=== PATIENT | female | born 1960 | race Caucasian/White ===

== ENCOUNTER 2018-01-15 08:40 | Inpatient (IN) ==
[2018-01-15] MEDS ORDERED: ALBUTEROL 2.5 MG/3 ML NEB RESP TX PRN (12:10)
[2018-01-15] MEDS ORDERED: LACTULOSE 20 GM/30 ML UDCUP PO PRN (12:10)
[2018-01-15] MEDS ORDERED: ONDANSETRON 4 MG/2 ML VIAL IV PRN (12:10)
[2018-01-15] MEDS ORDERED: ACETAMINOPHEN 325 MG TABLET PO PRN (12:10)
[2018-01-15] MEDS ORDERED: GLUCAGON 1 MG VIAL IM PRN (12:13)
[2018-01-15] MEDS ORDERED: DEXTROSE 50% 25 GM/50 ML SYRINGE IV PRN (12:13)
[2018-01-15] MEDS ORDERED: FUROSEMIDE 40 MG/4 ML VIAL IV ONE (12:19)
[2018-01-15] MEDS: methylPREDNISolone SOD SUC 40 MG/1 ML VIAL IV SCH ×2 (12:53→21:58)
[2018-01-15 13:02] LABS: ABG Base Excess 1.6 MMOL/L (-2.5-2.5); ABG HCO3 25.6 MMOL/L (20-26); ABG Oxygen Saturation 88.4 % (95-100); ABG PH 7.438 (7.35-7.45); ABG PO2 54.6 MM HG (80-95); ABG TCO2 22.6 MMOL/L (23-27)
[2018-01-15] MEDS: ALBUTEROL/IPRATROPIUM 3 ML NEB RESP TX SCH ×3 (14:55→23:42)
[2018-01-15] MEDS: INSULIN LISPRO 100 UNIT/ML SUBCUT SCH ×2 (16:53→21:58)
[2018-01-15] MEDS: NAPROXEN 250 MG TABLET PO PRN (19:48)
[2018-01-15] MEDS: CEFEPIME 1,000 MG in SYRINGE 1 EACH IV SCH (21:57)
[2018-01-15] MEDS: CARVEDILOL 12.5 MG TABLET PO SCH (21:58)
[2018-01-16] MEDS: NAPROXEN 250 MG TABLET PO PRN (01:30)
[2018-01-16] MEDS: ALBUTEROL/IPRATROPIUM 3 ML NEB RESP TX SCH ×6 (03:53→23:45)
[2018-01-16 04:34] LABS: Basophils % 0.1 % (0.0-0.8); Hematocrit 38.2 VOL% (35.7-47.0); Hemoglobin 12.1 GM/DL (12.0-16.0); Immature Granulocytes % 0.7 %; Immature Granulocytes Absolute 0.12 #; Lymphocytes # 2.8 10*3/uL (1.4-4.0); Lymphocytes % 16.4 % (21.3-54.2); Mean Corpuscular HGB Conc 31.7 GM/DL (32-36); Mean Corpuscular Hemoglobin 29 PG (27-34); Mean Corpuscular Volume 92.3 FL (87-102); Mean Platelet Volume 10.8 FL (9.6-12.0); Monocytes # 0.7 10*3/uL (0.11-0.8); Monocytes % 3.9 % (1.7-12.7); Neutrophils # 13.7 10*3/uL (1.4-7.4); Neutrophils % 78.9 % (38.7-73.9); Platelet Count 338 T/CUMM (130-400); Red Blood Count 4.14 MC/CUMM (3.8-5.5); Red Cell Distribution Width 14.6 % (9.3-17.3); White Blood Count 17.3 T/CUMM (4-12)
[2018-01-16 04:57] LABS: Albumin 3.2 G/DL (3.4-5.0); Bilirubin,Total 0.6 MG/DL (0.2-1.0); Calcium 9.1 MG/DL (8.5-10.1); Osmolality,Calculated 283.8 MOS/KG (273-304); Potassium 3.8 MMOL/L (3.5-5.1); Total Protein 7.8 G/DL (6.4-8.3)
[2018-01-16] MEDS: methylPREDNISolone SOD SUC 40 MG/1 ML VIAL IV SCH ×2 (06:00→17:17)
[2018-01-16] MEDS: CARVEDILOL 12.5 MG TABLET PO SCH ×2 (08:39→21:27)
[2018-01-16] MEDS: ATORVASTATIN 40 MG TABLET PO SCH (08:39)
[2018-01-16] MEDS: INSULIN LISPRO 100 UNIT/ML SUBCUT SCH ×5 (08:39→21:26)
[2018-01-16] MEDS: ASPIRIN EC 325 MG TABLET PO SCH (08:39)
[2018-01-16] MEDS: ENOXAPARIN 40 MG/0.4 ML SYRINGE SUBCUT SCH (08:39)
[2018-01-16] MEDS: PANTOPRAZOLE 40 MG TABLET PO SCH (08:39)
[2018-01-16] MEDS: AZITHROMYCIN INJ 500 MG in SODIUM CHLORIDE 0.9% 250 ML IV SCH (08:40)
[2018-01-16] MEDS: CEFEPIME 1,000 MG in SYRINGE 1 EACH IV SCH ×2 (09:58→21:27)
[2018-01-16] MEDS ORDERED: methylPREDNISolone SOD SUC 40 MG/1 ML VIAL IV SCH (10:00)
[2018-01-16 14:50] LABS: Apearance,Urine CLEAR (Clear); Bilirubin,Urine Negative (Negative); Blood, Urine Negative (Negative); Glucose,Urine (UA) >=500 mg/dL (Negative); Ketones,Urine Negative (Negative); Nitrite,Urine Negative (Negative); Protein,Urine Negative; RBC,Urine <1 /HPF (0-4); Urine Color Straw (Yellow); Urine Specific Gravity 1.022 (1.001-1.035); Urine Urobilinogen < 2.0 EU/DL (0.2-1.0); WBC,Urine <1 /HPF (0-6)
[2018-01-16] MEDS: INSULIN GLARGINE 100 UNIT/ML SUBCUT SCH (21:26)
[2018-01-17] MEDS: ALBUTEROL/IPRATROPIUM 3 ML NEB RESP TX SCH ×6 (04:57→23:40)
[2018-01-17 05:49] LABS: Basophils % 0.1 % (0.0-0.8); Hematocrit 38.1 VOL% (35.7-47.0); Hemoglobin 11.9 GM/DL (12.0-16.0); Immature Granulocytes % 0.6 %; Immature Granulocytes Absolute 0.13 #; Lymphocytes # 3.7 10*3/uL (1.4-4.0); Lymphocytes % 16.9 % (21.3-54.2); Mean Corpuscular HGB Conc 31.2 GM/DL (32-36); Mean Corpuscular Hemoglobin 29 PG (27-34); Mean Corpuscular Volume 92.3 FL (87-102); Monocytes # 1.4 10*3/uL (0.11-0.8); Monocytes % 6.5 % (1.7-12.7); Neutrophils # 16.5 10*3/uL (1.4-7.4); Neutrophils % 75.9 % (38.7-73.9); Platelet Count 381 T/CUMM (130-400); Red Blood Count 4.13 MC/CUMM (3.8-5.5); Red Cell Distribution Width 14.6 % (9.3-17.3); White Blood Count 21.8 T/CUMM (4-12)
[2018-01-17] MEDS: methylPREDNISolone SOD SUC 40 MG/1 ML VIAL IV SCH ×2 (05:59→18:10)
[2018-01-17] MEDS: LEVOTHYROXINE 137 MCG TABLET PO SCH (05:59)
[2018-01-17 06:18] LABS: Calcium 9.4 MG/DL (8.5-10.1); Osmolality,Calculated 285.7 MOS/KG (273-304); Potassium 4.3 MMOL/L (3.5-5.1)
[2018-01-17 06:20] LABS: Calcium 9.2 MG/DL (8.5-10.1); Osmolality,Calculated 287.5 MOS/KG (273-304); Potassium 4.4 MMOL/L (3.5-5.1)
[2018-01-17 06:47] LABS: Lymphocytes 16 % (20-55); Segmented Neutrophils 83 % (50-85); Total Cells Counted 100
[2018-01-17 06:48] LABS: Platelet Estimate Normal
[2018-01-17] MEDS ORDERED: DIAZEPAM 5 MG TABLET PO ONE ×2 (08:34→15:16)
[2018-01-17] MEDS ORDERED: KETOROLAC 15 MG/1 ML VIAL IV ONE (08:57)
[2018-01-17] MEDS ORDERED: BUTALBITAL/ACETAMIN/CAFFEINE 50-325-40 MG TABLET PO PRN (08:57)
[2018-01-17] MEDS ORDERED: LIRAGLUTIDE 18 MG SUBCUT SCH (09:00)
[2018-01-17] MEDS: PANTOPRAZOLE 40 MG TABLET PO SCH (09:15)
[2018-01-17] MEDS: ASPIRIN EC 325 MG TABLET PO SCH (09:15)
[2018-01-17] MEDS: CARVEDILOL 12.5 MG TABLET PO SCH ×2 (09:15→22:00)
[2018-01-17] MEDS: INSULIN LISPRO 100 UNIT/ML SUBCUT SCH ×5 (09:16→22:00)
[2018-01-17] MEDS: ENOXAPARIN 40 MG/0.4 ML SYRINGE SUBCUT SCH (09:19)
[2018-01-17] MEDS: AZITHROMYCIN INJ 500 MG in SODIUM CHLORIDE 0.9% 250 ML IV SCH (13:04)
[2018-01-17] MEDS: MONTELUKAST 10 MG TABLET PO SCH (13:07)
[2018-01-17] MEDS: ATORVASTATIN 40 MG TABLET PO SCH (13:07)
[2018-01-17] MEDS: FLUTICASONE 50 MCG NASAL SPRAY 16 GM BOTTLE BOTH NARES SCH (13:07)
[2018-01-17] MEDS: CEFEPIME 1,000 MG in SYRINGE 1 EACH IV SCH ×2 (14:17→22:09)
[2018-01-17] MEDS ORDERED: MAGNESIUM SULF RIDER 2 GM in PREMIX 1 EACH IV PRN (15:16)
[2018-01-17] MEDS ORDERED: ASPIRIN 325 MG TABLET PO ONE (15:16)
[2018-01-17] MEDS ORDERED: diphenhydrAMINE CAP 25 MG CAPSULE PO ONE (15:16)
[2018-01-17] MEDS ORDERED: POTASSIUM CHLORIDE RIDER 10 MEQ in PREMIX 1 EACH IV PRN (15:16)
[2018-01-17] MEDS: INSULIN GLARGINE 100 UNIT/ML SUBCUT SCH (22:00)
[2018-01-18] MEDS: ALBUTEROL/IPRATROPIUM 3 ML NEB RESP TX SCH ×6 (03:32→23:44)
[2018-01-18] MEDS: LEVOTHYROXINE 137 MCG TABLET PO SCH (05:56)
[2018-01-18] MEDS: methylPREDNISolone SOD SUC 40 MG/1 ML VIAL IV SCH ×2 (05:56→17:17)
[2018-01-18 06:38] LABS: Basophils % 0.1 % (0.0-0.8); Eosinophils % 0.1 % (0.00-10.9); Hematocrit 38.8 VOL% (35.7-47.0); Hemoglobin 12.1 GM/DL (12.0-16.0); Immature Granulocytes % 0.6 %; Immature Granulocytes Absolute 0.11 #; Lymphocytes % 26.6 % (21.3-54.2); Mean Corpuscular HGB Conc 31.2 GM/DL (32-36); Mean Corpuscular Hemoglobin 29 PG (27-34); Mean Corpuscular Volume 94.2 FL (87-102); Mean Platelet Volume 10.8 FL (9.6-12.0); Monocytes # 1.5 10*3/uL (0.11-0.8); Monocytes % 8.3 % (1.7-12.7); Neutrophils % 64.3 % (38.7-73.9); Platelet Count 373 T/CUMM (130-400); Red Blood Count 4.12 MC/CUMM (3.8-5.5); Red Cell Distribution Width 14.4 % (9.3-17.3); White Blood Count 18.6 T/CUMM (4-12)
[2018-01-18 07:15] LABS: Calcium 9.1 MG/DL (8.5-10.1); Osmolality,Calculated 287.4 MOS/KG (273-304)
[2018-01-18] MEDS: INSULIN LISPRO 100 UNIT/ML SUBCUT SCH ×5 (08:45→21:36)
[2018-01-18] MEDS: MONTELUKAST 10 MG TABLET PO SCH (10:25)
[2018-01-18] MEDS: PANTOPRAZOLE 40 MG TABLET PO SCH (10:25)
[2018-01-18] MEDS: ENOXAPARIN 40 MG/0.4 ML SYRINGE SUBCUT SCH (10:25)
[2018-01-18] MEDS: AZITHROMYCIN INJ 500 MG in SODIUM CHLORIDE 0.9% 250 ML IV SCH (10:25)
[2018-01-18] MEDS: ASPIRIN EC 325 MG TABLET PO SCH (10:25)
[2018-01-18] MEDS: CARVEDILOL 12.5 MG TABLET PO SCH ×2 (10:25→21:28)
[2018-01-18] MEDS: ATORVASTATIN 40 MG TABLET PO SCH (10:25)
[2018-01-18] MEDS: FLUTICASONE 50 MCG NASAL SPRAY 16 GM BOTTLE BOTH NARES SCH (10:26)
[2018-01-18] MEDS: CEFEPIME 1,000 MG in SYRINGE 1 EACH IV SCH ×2 (10:37→23:03)
[2018-01-18] MEDS: INSULIN GLARGINE 100 UNIT/ML SUBCUT SCH (21:28)
[2018-01-19] MEDS: ALBUTEROL/IPRATROPIUM 3 ML NEB RESP TX SCH ×6 (03:45→23:43)
[2018-01-19 05:08] LABS: Basophils % 0.2 % (0.0-0.8); Eosinophils # 0.1 10*3/uL (0.0-0.87); Eosinophils % 0.4 % (0.00-10.9); Hematocrit 36.9 VOL% (35.7-47.0); Hemoglobin 11.4 GM/DL (12.0-16.0); Immature Granulocytes % 0.5 %; Lymphocytes # 6.5 10*3/uL (1.4-4.0); Lymphocytes % 34.9 % (21.3-54.2); Mean Corpuscular HGB Conc 30.9 GM/DL (32-36); Mean Corpuscular Hemoglobin 29 PG (27-34); Mean Corpuscular Volume 93.7 FL (87-102); Mean Platelet Volume 11.4 FL (9.6-12.0); Monocytes # 1.9 10*3/uL (0.11-0.8); Monocytes % 10.4 % (1.7-12.7); Neutrophils # 9.9 10*3/uL (1.4-7.4); Neutrophils % 53.6 % (38.7-73.9); Platelet Count 366 T/CUMM (130-400); Red Blood Count 3.94 MC/CUMM (3.8-5.5); Red Cell Distribution Width 14.1 % (9.3-17.3); White Blood Count 18.6 T/CUMM (4-12)
[2018-01-19 06:00] LABS: Calcium 8.6 MG/DL (8.5-10.1); Osmolality,Calculated 287.1 MOS/KG (273-304); Potassium 3.7 MMOL/L (3.5-5.1)
[2018-01-19] MEDS: LEVOTHYROXINE 137 MCG TABLET PO SCH (06:03)
[2018-01-19] MEDS: methylPREDNISolone SOD SUC 40 MG/1 ML VIAL IV SCH ×2 (06:03→17:18)
[2018-01-19] MEDS ORDERED: DEXTROSE 50% 25 GM/50 ML VIAL IV PRN (08:54)
[2018-01-19] MEDS ORDERED: GLUCAGON 1 MG VIAL IM PRN (08:54)
[2018-01-19] MEDS: INSULIN LISPRO 100 UNIT/ML SUBCUT SCH ×6 (08:57→21:44)
[2018-01-19] MEDS: MONTELUKAST 10 MG TABLET PO SCH (08:58)
[2018-01-19] MEDS: PANTOPRAZOLE 40 MG TABLET PO SCH (08:58)
[2018-01-19] MEDS: ATORVASTATIN 40 MG TABLET PO SCH (08:58)
[2018-01-19] MEDS: ASPIRIN EC 325 MG TABLET PO SCH (08:58)
[2018-01-19] MEDS: ENOXAPARIN 40 MG/0.4 ML SYRINGE SUBCUT SCH (08:58)
[2018-01-19] MEDS: CARVEDILOL 12.5 MG TABLET PO SCH (08:58)
[2018-01-19] MEDS: FLUTICASONE 50 MCG NASAL SPRAY 16 GM BOTTLE BOTH NARES SCH (08:59)
[2018-01-19] MEDS: CARVEDILOL 25 MG TABLET PO SCH (21:43)
[2018-01-19] MEDS: LOSARTAN 50 MG TABLET PO SCH (21:43)
[2018-01-19] MEDS: INSULIN GLARGINE 100 UNIT/ML SUBCUT SCH (21:43)
[2018-01-20] MEDS: ALBUTEROL/IPRATROPIUM 3 ML NEB RESP TX SCH ×5 (04:06→21:18)
[2018-01-20 05:00] LABS: Basophils % 0.2 % (0.0-0.8); Eosinophils # 0.1 10*3/uL (0.0-0.87); Eosinophils % 0.6 % (0.00-10.9); Hematocrit 39.4 VOL% (35.7-47.0); Hemoglobin 12.5 GM/DL (12.0-16.0); Immature Granulocytes % 0.5 %; Lymphocytes # 6.8 10*3/uL (1.4-4.0); Lymphocytes % 33.1 % (21.3-54.2); Mean Corpuscular HGB Conc 31.7 GM/DL (32-36); Mean Corpuscular Hemoglobin 29 PG (27-34); Mean Corpuscular Volume 91.2 FL (87-102); Mean Platelet Volume 11.3 FL (9.6-12.0); Monocytes # 2.2 10*3/uL (0.11-0.8); Monocytes % 10.6 % (1.7-12.7); Neutrophils # 11.3 10*3/uL (1.4-7.4); Platelet Count 410 T/CUMM (130-400); Red Blood Count 4.32 MC/CUMM (3.8-5.5); Red Cell Distribution Width 14.1 % (9.3-17.3); White Blood Count 20.6 T/CUMM (4-12)
[2018-01-20 05:13] LABS: Calcium 9.1 MG/DL (8.5-10.1); Osmolality,Calculated 285.3 MOS/KG (273-304); Potassium 3.9 MMOL/L (3.5-5.1)
[2018-01-20 05:28] LABS: Hypochromasia 1+; Platelet Estimate Adequate
[2018-01-20] MEDS: methylPREDNISolone SOD SUC 40 MG/1 ML VIAL IV SCH ×2 (05:53→17:11)
[2018-01-20] MEDS: LEVOTHYROXINE 137 MCG TABLET PO SCH (05:54)
[2018-01-20] MEDS ORDERED: diphenhydrAMINE CAP 25 MG CAPSULE PO ONE (07:00)
[2018-01-20] MEDS ORDERED: DIAZEPAM 5 MG TABLET PO ONE (07:00)
[2018-01-20] MEDS ORDERED: ASPIRIN 325 MG TABLET PO ONE (07:00)
[2018-01-20] MEDS: PANTOPRAZOLE 40 MG TABLET PO SCH (07:59)
[2018-01-20] MEDS: FLUTICASONE 50 MCG NASAL SPRAY 16 GM BOTTLE BOTH NARES SCH (07:59)
[2018-01-20] MEDS: CARVEDILOL 25 MG TABLET PO SCH ×2 (07:59→21:28)
[2018-01-20] MEDS: LOSARTAN 50 MG TABLET PO SCH ×2 (07:59→21:28)
[2018-01-20] MEDS: amLODIPine 5 MG TABLET PO SCH (07:59)
[2018-01-20] MEDS ORDERED: LIDOCAINE 1% 20 ML VIAL ONE (09:14)
[2018-01-20] MEDS ORDERED: fentaNYL 100 MCG/2 ML VIAL ONE (09:14)
[2018-01-20] MEDS ORDERED: MIDAZOLAM 2 MG/2 ML VIAL ONE (09:14)
[2018-01-20] MEDS: INSULIN LISPRO 100 UNIT/ML SUBCUT SCH ×5 (10:04→21:29)
[2018-01-20] MEDS: ASPIRIN EC 325 MG TABLET PO SCH (10:07)
[2018-01-20] MEDS: SODIUM CHLORIDE 0.9% 1,000 ML IV SCH ×2 (10:50→19:00)
[2018-01-20] MEDS: ATORVASTATIN 40 MG TABLET PO SCH (12:48)
[2018-01-20] MEDS: ENOXAPARIN 40 MG/0.4 ML SYRINGE SUBCUT SCH (12:48)
[2018-01-20] MEDS: MONTELUKAST 10 MG TABLET PO SCH (12:48)
[2018-01-20] MEDS: INSULIN GLARGINE 100 UNIT/ML SUBCUT SCH (21:29)
[2018-01-21] MEDS: ALBUTEROL/IPRATROPIUM 3 ML NEB RESP TX SCH ×7 (01:12→23:19)
[2018-01-21] MEDS: SODIUM CHLORIDE 0.9% 1,000 ML IV SCH ×2 (03:25→11:13)
[2018-01-21 03:26] LABS: Basophils % 0.2 % (0.0-0.8); Eosinophils # 0.1 10*3/uL (0.0-0.87); Eosinophils % 0.5 % (0.00-10.9); Hematocrit 38.5 VOL% (35.7-47.0); Hemoglobin 12.1 GM/DL (12.0-16.0); Immature Granulocytes % 0.5 %; Immature Granulocytes Absolute 0.09 #; Lymphocytes % 27.2 % (21.3-54.2); Mean Corpuscular HGB Conc 31.4 GM/DL (32-36); Mean Corpuscular Hemoglobin 29 PG (27-34); Mean Corpuscular Volume 91.9 FL (87-102); Mean Platelet Volume 10.7 FL (9.6-12.0); Monocytes # 1.6 10*3/uL (0.11-0.8); Monocytes % 8.9 % (1.7-12.7); Neutrophils # 11.5 10*3/uL (1.4-7.4); Neutrophils % 62.7 % (38.7-73.9); Platelet Count 375 T/CUMM (130-400); Red Blood Count 4.19 MC/CUMM (3.8-5.5); Red Cell Distribution Width 14.2 % (9.3-17.3); White Blood Count 18.3 T/CUMM (4-12)
[2018-01-21 03:52] LABS: Calcium 8.7 MG/DL (8.5-10.1); Osmolality,Calculated 289.4 MOS/KG (273-304); Potassium 4.4 MMOL/L (3.5-5.1)
[2018-01-21] MEDS: methylPREDNISolone SOD SUC 40 MG/1 ML VIAL IV SCH (05:00)
[2018-01-21] MEDS: LEVOTHYROXINE 137 MCG TABLET PO SCH (06:09)
[2018-01-21] MEDS: INSULIN LISPRO 100 UNIT/ML SUBCUT SCH ×5 (08:24→21:28)
[2018-01-21] MEDS: amLODIPine 5 MG TABLET PO SCH (08:25)
[2018-01-21] MEDS: ASPIRIN EC 325 MG TABLET PO SCH (08:25)
[2018-01-21] MEDS: PANTOPRAZOLE 40 MG TABLET PO SCH (08:25)
[2018-01-21] MEDS: ENOXAPARIN 40 MG/0.4 ML SYRINGE SUBCUT SCH (08:25)
[2018-01-21] MEDS: CARVEDILOL 25 MG TABLET PO SCH ×2 (08:25→21:27)
[2018-01-21] MEDS: ATORVASTATIN 40 MG TABLET PO SCH (08:26)
[2018-01-21] MEDS: LOSARTAN 50 MG TABLET PO SCH ×2 (08:26→21:27)
[2018-01-21] MEDS: MONTELUKAST 10 MG TABLET PO SCH (08:26)
[2018-01-21] MEDS: FLUTICASONE 50 MCG NASAL SPRAY 16 GM BOTTLE BOTH NARES SCH (08:26)
[2018-01-21] MEDS: INSULIN GLARGINE 100 UNIT/ML SUBCUT SCH (21:27)
[2018-01-22] MEDS: ALBUTEROL/IPRATROPIUM 3 ML NEB RESP TX SCH ×6 (03:12→22:59)
[2018-01-22 03:41] LABS: Basophils # 0.1 10*3/uL (0.0-0.2); Basophils % 0.2 % (0.0-0.8); Eosinophils # 0.7 10*3/uL (0.0-0.87); Eosinophils % 3.2 % (0.00-10.9); Hematocrit 37.7 VOL% (35.7-47.0); Hemoglobin 11.8 GM/DL (12.0-16.0); Immature Granulocytes % 0.5 %; Immature Granulocytes Absolute 0.12 #; Lymphocytes # 8.9 10*3/uL (1.4-4.0); Lymphocytes % 39.8 % (21.3-54.2); Mean Corpuscular HGB Conc 31.3 GM/DL (32-36); Mean Corpuscular Hemoglobin 29 PG (27-34); Mean Corpuscular Volume 92.2 FL (87-102); Mean Platelet Volume 11.3 FL (9.6-12.0); Monocytes # 2.1 10*3/uL (0.11-0.8); Monocytes % 9.3 % (1.7-12.7); Neutrophils # 10.6 10*3/uL (1.4-7.4); Platelet Count 370 T/CUMM (130-400); Red Blood Count 4.09 MC/CUMM (3.8-5.5); Red Cell Distribution Width 14.3 % (9.3-17.3); White Blood Count 22.5 T/CUMM (4-12)
[2018-01-22 04:08] LABS: Calcium 8.6 MG/DL (8.5-10.1); Potassium 3.4 MMOL/L (3.5-5.1)
[2018-01-22 05:24] LABS: Eosinophils 2 % (0-10); Total Cells Counted 100
[2018-01-22 05:25] LABS: Band Neutrophils 2 % (0-10); Lymphocytes 39 % (20-55); Platelet Estimate Normal; Segmented Neutrophils 48 % (50-85)
[2018-01-22 05:26] LABS: Ovalocytes 1+
[2018-01-22] MEDS ORDERED: DEXTROSE 50% 25 GM/50 ML SYRINGE IV PRN (05:44)
[2018-01-22] MEDS ORDERED: GLUCAGON 1 MG VIAL IM PRN (05:44)
[2018-01-22] MEDS ORDERED: CEFUROXIME INJ 1,500 MG in SODIUM CHLORIDE 0.9% 100 ML IV ONE (06:00)
[2018-01-22 06:12] LABS: ABG Base Excess 3.4 MMOL/L (-2.5-2.5); ABG HCO3 27.7 MMOL/L (20-26); ABG PCO2 40.9 MM HG (35-48); ABG PH 7.448 (7.35-7.45); ABG PO2 69.8 MM HG (80-95); ABG TCO2 28.9 MMOL/L (23-27)
[2018-01-22] MEDS: LEVOTHYROXINE 137 MCG TABLET PO SCH (06:35)
[2018-01-22] MEDS: INSULIN LISPRO 100 UNIT/ML SUBCUT SCH ×5 (10:37→21:25)
[2018-01-22] MEDS: POTASSIUM CHLORIDE 20 MEQ TABLET PO PRN ×3 (10:38→14:49)
[2018-01-22] MEDS: ATORVASTATIN 40 MG TABLET PO SCH (10:38)
[2018-01-22] MEDS: CARVEDILOL 25 MG TABLET PO SCH ×2 (10:38→21:24)
[2018-01-22] MEDS: ASPIRIN EC 325 MG TABLET PO SCH (10:38)
[2018-01-22] MEDS: PANTOPRAZOLE 40 MG TABLET PO SCH (10:38)
[2018-01-22] MEDS: amLODIPine 5 MG TABLET PO SCH (10:38)
[2018-01-22] MEDS: predniSONE 20 MG TABLET PO SCH (10:38)
[2018-01-22] MEDS: MONTELUKAST 10 MG TABLET PO SCH (10:39)
[2018-01-22] MEDS: LOSARTAN 50 MG TABLET PO SCH ×2 (10:39→21:24)
[2018-01-22] MEDS: CHLORHEXIDINE 4% SOLN 118 ML BOTTLE TOP SCH ×3 (10:40→21:25)
[2018-01-22] MEDS: CHLORHEXIDINE 0.12% ORAL RINSE 60 ML BOTTLE SWISH/SPIT SCH ×2 (10:40→21:24)
[2018-01-22] MEDS: FLUTICASONE 50 MCG NASAL SPRAY 16 GM BOTTLE BOTH NARES SCH (10:41)
[2018-01-22] MEDS: INSULIN GLARGINE 100 UNIT/ML SUBCUT SCH (21:24)
[2018-01-23] MEDS: ALBUTEROL/IPRATROPIUM 3 ML NEB RESP TX SCH ×4 (03:30→16:20)
[2018-01-23] MEDS ORDERED: CEFUROXIME INJ 1,500 MG in SODIUM CHLORIDE 0.9% 100 ML IV ONE (04:00)
[2018-01-23] MEDS ORDERED: VANCOMYCIN 1,000 MG VIAL ONE (04:40)
[2018-01-23] MEDS ORDERED: PAPAVERINE 60 MG/2 ML VIAL ONE (04:40)
[2018-01-23] MEDS: LEVOTHYROXINE 137 MCG TABLET PO SCH (05:30)
[2018-01-23] MEDS ORDERED: HEPARIN/NACL 0.9% 2 UNITS/ML 500 ML IV ONE (05:40)
[2018-01-23] MEDS ORDERED: PHENYLEPHRINE DRIP 20 MG/250 ML PREMIX IV ONE ×2 (05:40→16:09)
[2018-01-23] MEDS ORDERED: CALCIUM CHLORIDE 1,000 MG/10 ML VIAL IV ONE (05:40)
[2018-01-23] MEDS ORDERED: ePHEDrine 50 MG/ML AMP ONE (05:41)
[2018-01-23] MEDS ORDERED: VECURONIUM 10 MG VIAL IV ONE ×2 (05:41→15:59)
[2018-01-23] MEDS ORDERED: MIDAZOLAM 10 MG/2 ML VIAL ONE ×2 (05:41→15:59)
[2018-01-23] MEDS ORDERED: SUFentanil 250 MCG/5 ML AMP ONE (05:41)
[2018-01-23] MEDS ORDERED: SODIUM CHLORIDE 0.9% 250 ML IV ONE (05:42)
[2018-01-23] MEDS ORDERED: SODIUM CHLORIDE 0.9% 1,000 ML IV ONE (05:42)
[2018-01-23] MEDS ORDERED: ETOMIDATE 40 MG/20 ML VIAL IV ONE (05:42)
[2018-01-23] MEDS ORDERED: LACTATED RINGERS 1,000 ML IV ONE (05:42)
[2018-01-23] MEDS ORDERED: NITROGLYCERIN DRIP 50 MG/250 ML BOTTLE IV ONE ×2 (05:42→17:45)
[2018-01-23] MEDS ORDERED: AMINOCAPROIC ACID 5,000 MG/20 ML VIAL IV ONE (05:42)
[2018-01-23] MEDS: CARVEDILOL 25 MG TABLET PO SCH ×2 (05:51→18:18)
[2018-01-23] MEDS: SODIUM CHLORIDE 0.9% 1,000 ML IV SCH ×2 (05:51→18:17)
[2018-01-23] MEDS: amLODIPine 5 MG TABLET PO SCH (05:51)
[2018-01-23] MEDS ORDERED: DIAZEPAM 5 MG TABLET PO ONE (06:00)
[2018-01-23 07:58] LABS: ABG Base Excess -0.8 MMOL/L (-2.5-2.5); ABG HCO3 23.8 MMOL/L (20-26); ABG Oxygen Saturation 99.7 % (95-100); ABG PCO2 45.8 MM HG (35-48); ABG PH 7.348 (7.35-7.45); ABG TCO2 22.6 MMOL/L (23-27); Glucose Heart Surgery 184 MG/DL (74-106); Hemoglobin Heart Surgery 11.4 G/DL (12.0-16.0); PCO2 Patient Temp Arterial 45.8 MMHG; PH Patient Temp Arterial 7.348; Patient Temperature 37 CELCIUS; Potassium Heart/CVR 3.5 MMOL/L (3.5-5.1); Sodium Heart/CVR 141 MMOL/L (135-145)
[2018-01-23 08:57] LABS: Hematocrit Heart Surgery 24.7 PERCENT (37-47); Hemoglobin Heart Surgery 7.9 G/DL (12.0-16.0); PCO2 Patient Temp Venous 34.7 MM HG; PH Patient Temp Venous 7.463; PO2 Patient Temp Venous 31.7 MM HG; Potassium Heart/CVR 3.9 MMOL/L (3.5-5.1); VBG Base Excess 1.5 MEQ/L (0-4); VBG HCO3 25.5 MEQ/L (24-28); VBG Oxygen Saturation 76.7 %; VBG PCO2 42.1 MMHG (41-51); VBG PH 7.405; VBG PO2 41.9 MMHG (17-40)
[2018-01-23 09:07] LABS: Apearance,Urine Slightly Hazy (Clear); Bilirubin,Urine Negative (Negative); Blood, Urine Negative (Negative); Glucose,Urine (UA) Negative (Negative); Hyaline Casts,Urine 4 /LPF (0-3); Ketones,Urine Negative (Negative); Mucus,Urine Moderate /LPF (Occasional); Nitrite,Urine Negative (Negative); Protein,Urine Negative; RBC,Urine <1 /HPF (0-4); Urine Color Yellow (Yellow); Urine Specific Gravity 1.026 (1.001-1.035); Urine Urobilinogen < 2.0 EU/DL (0.2-1.0); WBC,Urine 3 /HPF (0-6)
[2018-01-23 09:23] LABS: Hematocrit Heart Surgery 25.8 PERCENT (37-47); Hemoglobin Heart Surgery 8.3 G/DL (12.0-16.0); PCO2 Patient Temp Venous 34.4 MM HG; PH Patient Temp Venous 7.467; PO2 Patient Temp Venous 32.4 MM HG; Potassium Heart/CVR 4.1 MMOL/L (3.5-5.1); VBG Base Excess 1.6 MEQ/L (0-4); VBG HCO3 25.5 MEQ/L (24-28); VBG Oxygen Saturation 77.6 %; VBG PCO2 41.7 MMHG (41-51); VBG PH 7.408; VBG PO2 42.8 MMHG (17-40)
[2018-01-23 10:05] LABS: Hemoglobin Heart Surgery 9.6 G/DL (12.0-16.0); PH Patient Temp Venous 7.529; PO2 Patient Temp Venous 32.4 MM HG; Potassium Heart/CVR 3.9 MMOL/L (3.5-5.1); VBG Base Excess 1.7 MEQ/L (0-4); VBG HCO3 25.3 MEQ/L (24-28); VBG Oxygen Saturation 77.5 %; VBG PCO2 35.7 MMHG (41-51); VBG PH 7.468; VBG PO2 42.9 MMHG (17-40)
[2018-01-23] MEDS ORDERED: CALCIUM CHLORIDE 1,000 MG/10 ML SYRINGE IV ONE (10:34)
[2018-01-23] MEDS ORDERED: POTASSIUM CHLORIDE RIDER 100 ML IV ONE (10:37)
[2018-01-23] MEDS ORDERED: NITROPRUSSIDE 50 MG/2 ML VIAL ONE (10:37)
[2018-01-23] MEDS ORDERED: PHENYLEPHRINE DRIP 40 MG/250 ML PREMIX IV ONE (10:37)
[2018-01-23 10:41] LABS: Hematocrit Heart Surgery 27.1 PERCENT (37-47); Hemoglobin Heart Surgery 8.7 G/DL (12.0-16.0); PH Patient Temp Venous 7.508; Potassium Heart/CVR 4.2 MMOL/L (3.5-5.1); VBG Base Excess 2.1 MEQ/L (0-4); VBG HCO3 25.9 MEQ/L (24-28); VBG PCO2 37.6 MMHG (41-51); VBG PH 7.448; VBG PO2 39.7 MMHG (17-40)
[2018-01-23] MEDS ORDERED: diphenhydrAMINE 50 MG/1 ML VIAL ONE (11:14)
[2018-01-23] MEDS ORDERED: FAMOTIDINE 20 MG/2 ML VIAL IV ONE (11:15)
[2018-01-23 11:34] LABS: Hematocrit Heart Surgery 26.6 PERCENT (37-47); Hemoglobin Heart Surgery 8.6 G/DL (12.0-16.0); PCO2 Patient Temp Venous 30.9 MM HG; PH Patient Temp Venous 7.506; PO2 Patient Temp Venous 28.3 MM HG; Potassium Heart/CVR 3.9 MMOL/L (3.5-5.1); VBG Base Excess 1.8 MEQ/L (0-4); VBG HCO3 25.7 MEQ/L (24-28); VBG Oxygen Saturation 71.7 %; VBG PCO2 37.5 MMHG (41-51); VBG PH 7.446; VBG PO2 37.4 MMHG (17-40)
[2018-01-23 11:53] LABS: Hemoglobin Heart Surgery 8.7 G/DL (12.0-16.0); PCO2 Patient Temp Venous 39.9 MM HG; PH Patient Temp Venous 7.419; PO2 Patient Temp Venous 36.7 MM HG; Potassium Heart/CVR 3.7 MMOL/L (3.5-5.1); VBG Base Excess 1.3 MEQ/L (0-4); VBG HCO3 25.1 MEQ/L (24-28); VBG Oxygen Saturation 68.9 %; VBG PCO2 39.9 MMHG (41-51); VBG PH 7.419; VBG PO2 36.7 MMHG (17-40)
[2018-01-23 12:38] LABS: Hematocrit Heart Surgery 25.8 PERCENT (37-47); Hemoglobin Heart Surgery 8.3 G/DL (12.0-16.0); PCO2 Patient Temp Venous 48.3 MM HG; PH Patient Temp Venous 7.326; Potassium Heart/CVR 3.8 MMOL/L (3.5-5.1); VBG HCO3 23.3 MEQ/L (24-28); VBG Oxygen Saturation 73.4 %; VBG PCO2 48.3 MMHG (41-51); VBG PH 7.326
[2018-01-23 13:55] LABS: Hemoglobin Heart Surgery 8.4 G/DL (12.0-16.0); PCO2 Patient Temp Venous 41.5 MM HG; PH Patient Temp Venous 7.393; Potassium Heart/CVR 4.6 MMOL/L (3.5-5.1); VBG Base Excess 0.4 MEQ/L (0-4); VBG HCO3 24.3 MEQ/L (24-28); VBG Oxygen Saturation 62.1 %; VBG PCO2 41.5 MMHG (41-51); VBG PH 7.393
[2018-01-23 14:26] LABS: Hematocrit Heart Surgery 25.5 PERCENT (37-47); Hemoglobin Heart Surgery 8.2 G/DL (12.0-16.0); PCO2 Patient Temp Venous 39.4 MM HG; PH Patient Temp Venous 7.408; PO2 Patient Temp Venous 26.7 MM HG; Potassium Heart/CVR 4.7 MMOL/L (3.5-5.1); VBG Base Excess 0.3 MEQ/L (0-4); VBG Oxygen Saturation 48.1 %; VBG PCO2 39.4 MMHG (41-51); VBG PH 7.408; VBG PO2 26.7 MMHG (17-40)
[2018-01-23 14:46] LABS: Hematocrit 25.3 VOL% (35.7-47.0); Platelet Count 151 T/CUMM (130-400)
[2018-01-23 14:50] LABS: ABG Base Excess -3.6 MMOL/L (-2.5-2.5); ABG HCO3 21.4 MMOL/L (20-26); ABG Oxygen Saturation 99.7 % (95-100); ABG PCO2 42.8 MM HG (35-48); ABG PH 7.323 (7.35-7.45); ABG TCO2 20.7 MMOL/L (23-27); Glucose Heart Surgery 466 MG/DL (74-106); Hematocrit Heart Surgery 27.3 PERCENT (37-47); Hemoglobin Heart Surgery 8.8 G/DL (12.0-16.0); Ionized Calcium Arterial 1.51 MMOL/L (1.21-1.46); PCO2 Patient Temp Arterial 42.8 MMHG; PH Patient Temp Arterial 7.323; Patient Temperature 37 CELCIUS; Potassium Heart/CVR 4.5 MMOL/L (3.5-5.1); Sodium Heart/CVR 134 MMOL/L (135-145)
[2018-01-23 15:00] LABS: INR 1.5; PT Patient Result 16.4 SECS; Partial Thromboplastin Time 31.9 SECS (0-40)
[2018-01-23] MEDS ORDERED: DEXTROSE 5% KCL 20 MEQ 40 MEQ/2,000 ML BAG IV ONE (15:10)
[2018-01-23] MEDS ORDERED: PROTAMINE SULFATE 250 MG/25 ML VIAL IV ONE (15:10)
[2018-01-23] MEDS ORDERED: SODIUM BICARBONATE 50 MEQ/50 ML SYRINGE IV ONE (15:10)
[2018-01-23] MEDS ORDERED: ALBUMIN 25% 25 GM/100 ML VIAL IV ONE (15:10)
[2018-01-23] MEDS ORDERED: FUROSEMIDE 20 MG/2 ML VIAL ONE (15:11)
[2018-01-23] MEDS ORDERED: PROTAMINE SULFATE 50 MG/5 ML VIAL IV ONE ×3 (15:11→17:00)
[2018-01-23] MEDS ORDERED: HEPARIN 10,000 UNIT/10 ML VIAL ONE (15:11)
[2018-01-23] MEDS ORDERED: MANNITOL 12.5 GM/50 ML VIAL IV ONE (15:11)
[2018-01-23] MEDS ORDERED: MAGNESIUM SULFATE 10 GM/20 ML VIAL IV ONE (15:11)
[2018-01-23] MEDS ORDERED: methylPREDNISolone SOD SUC 1,000 MG/8 ML VIAL ONE (15:11)
[2018-01-23] MEDS ORDERED: ALBUTEROL INHALER 8 GM INH ONE (15:59)
[2018-01-23] MEDS ORDERED: SODIUM CHLORIDE 0.9% 200 ML IV ONE (15:59)
[2018-01-23] MEDS ORDERED: AMIODARONE 150 MG/3 ML VIAL ONE (15:59)
[2018-01-23] MEDS ORDERED: SEVOFLURANE 1 UNIT/15 MINUTE INH ONE (15:59)
[2018-01-23] MEDS ORDERED: MINERAL OIL/PETROLATUM OPH OINT 3.5 GM TUBE ONE (15:59)
[2018-01-23] MEDS ORDERED: EPINEPHrine 1 MG/ML VIAL ONE (16:08)
[2018-01-23] MEDS ORDERED: INSULIN REGULAR 100 UNIT/ML IV ONE (16:14)
[2018-01-23] MEDS ORDERED: DEXTROSE 50% 25 GM/50 ML VIAL IV PRN ×2 (16:14)
[2018-01-23] MEDS ORDERED: ACETAMINOPHEN 650 MG SUPP RECTAL PRN (16:14)
[2018-01-23] MEDS ORDERED: LACTATED RINGERS 250 ML IV PRN (16:14)
[2018-01-23] MEDS ORDERED: MAGNESIUM SULF RIDER 4 GM in PREMIX 1 EACH IV PRN (16:14)
[2018-01-23] MEDS ORDERED: NITROPRUSSIDE 100 MG in DEXTROSE 5% 250 ML IV PRN (16:14)
[2018-01-23] MEDS ORDERED: VECURONIUM 10 MG VIAL IV PRN ×2 (16:14)
[2018-01-23] MEDS ORDERED: CALCIUM CHLORIDE 1,000 MG/10 ML SYRINGE IV PRN (16:14)
[2018-01-23] MEDS ORDERED: MAGNESIUM SULF RIDER 2 GM in PREMIX 1 EACH IV PRN (16:14)
[2018-01-23 16:29] LABS: ABG Base Excess -1.4 MMOL/L (-2.5-2.5); ABG HCO3 23.2 MMOL/L (20-26); ABG PCO2 39.9 MM HG (35-48); ABG PH 7.379 (7.35-7.45); ABG PO2 76.1 MM HG (80-95); ABG TCO2 20.7 MMOL/L (23-27); Glucose Heart Surgery 389 MG/DL (74-106); Hematocrit Heart Surgery 39.3 PERCENT (37-47); Hemoglobin Heart Surgery 12.8 G/DL (12.0-16.0); Potassium Heart/CVR 4.3 MMOL/L (3.5-5.1)
[2018-01-23 16:30] LABS: Basophils # 0.1 10*3/uL (0.0-0.2); Basophils % 0.2 % (0.0-0.8); Eosinophils # 0.1 10*3/uL (0.0-0.87); Eosinophils % 0.2 % (0.00-10.9); Hematocrit 27.4 VOL% (35.7-47.0); Hemoglobin 8.8 GM/DL (12.0-16.0); Immature Granulocytes % 3.1 %; Immature Granulocytes Absolute 0.94 #; Lymphocytes # 2.2 10*3/uL (1.4-4.0); Lymphocytes % 7.4 % (21.3-54.2); Mean Corpuscular HGB Conc 32.1 GM/DL (32-36); Mean Corpuscular Hemoglobin 29 PG (27-34); Mean Corpuscular Volume 91.6 FL (87-102); Mean Platelet Volume 11.3 FL (9.6-12.0); Monocytes # 3.2 10*3/uL (0.11-0.8); Monocytes % 10.6 % (1.7-12.7); NRBC # 0.02 10*3/uL; Neutrophils # 23.8 10*3/uL (1.4-7.4); Neutrophils % 78.5 % (38.7-73.9); Platelet Count 246 T/CUMM (130-400); Red Blood Count 2.99 MC/CUMM (3.8-5.5); Red Cell Distribution Width 15.4 % (9.3-17.3); White Blood Count 30.3 T/CUMM (4-12)
[2018-01-23] MEDS: SODIUM CHLORIDE 0.45% 1,000 ML IV SCH ×2 (16:38)
[2018-01-23] MEDS: PHENYLEPHRINE DRIP 40 MG/250 ML PREMIX IV PRN (16:39)
[2018-01-23 16:45] LABS: INR 1.2; Partial Thromboplastin Time 31.3 SECS (0-40)
[2018-01-23 16:53] LABS: Albumin 2.3 G/DL (3.4-5.0); Bilirubin,Total 0.9 MG/DL (0.2-1.0); Calcium 10.4 MG/DL (8.5-10.1); Osmolality,Calculated 300.3 MOS/KG (273-304); Potassium 4.5 MMOL/L (3.5-5.1)
[2018-01-23] MEDS: MIDAZOLAM 2 MG/2 ML VIAL IV PRN ×3 (17:00→21:12)
[2018-01-23 17:04] LABS: CKMB % 4.6 %
[2018-01-23] MEDS: POTASSIUM CHLORIDE RIDER 20 MEQ in PREMIX 1 EACH IV PRN (17:12)
[2018-01-23] MEDS ORDERED: FUROSEMIDE 40 MG/4 ML VIAL IV ONE (17:18)
[2018-01-23 17:33] LABS: VBG Base Excess 0.1 MEQ/L (0-4); VBG HCO3 23.5 MEQ/L (24-28); VBG Oxygen Saturation 39.5 %; VBG PCO2 41.9 MMHG (41-51); VBG PH 7.386
[2018-01-23] MEDS: INSULIN REGULAR DRIP 100 ML IV SCH (17:37)
[2018-01-23] MEDS ORDERED: NITROGLYCERIN DRIP 50 MG/250 ML BOTTLE IV PRN (17:52)
[2018-01-23] MEDS: ALBUMIN 5% 12.5 GM in PREMIX 1 EACH IV PRN (18:13)
[2018-01-23] MEDS: ASPIRIN EC 325 MG TABLET PO SCH (18:17)
[2018-01-23] MEDS: INSULIN LISPRO 100 UNIT/ML SUBCUT SCH (18:17)
[2018-01-23] MEDS: FLUTICASONE 50 MCG NASAL SPRAY 16 GM BOTTLE BOTH NARES SCH (18:18)
[2018-01-23] MEDS: LOSARTAN 50 MG TABLET PO SCH (18:18)
[2018-01-23] MEDS: ATORVASTATIN 40 MG TABLET PO SCH (18:18)
[2018-01-23] MEDS: LACTATED RINGERS 1,000 ML IV PRN ×2 (18:41→19:54)
[2018-01-23 18:42] LABS: ABG Base Excess -2.4 MMOL/L (-2.5-2.5); ABG HCO3 22.4 MMOL/L (20-26); ABG Oxygen Saturation 99.2 % (95-100); ABG PCO2 35.7 MM HG (35-48); ABG PH 7.396 (7.35-7.45); ABG TCO2 20.2 MMOL/L (23-27); Glucose Heart Surgery 370 MG/DL (74-106); Hematocrit Heart Surgery 28.4 PERCENT (37-47); Hemoglobin Heart Surgery 9.2 G/DL (12.0-16.0); Potassium Heart/CVR 4.3 MMOL/L (3.5-5.1)
[2018-01-23] MEDS: INSULIN REGULAR 100 UNIT/ML IV PRN (19:09)
[2018-01-23] MEDS: CEFUROXIME INJ 1,500 MG in SYRINGE 1 EACH IV SCH (19:47)
[2018-01-23] MEDS ORDERED: SODIUM CHLORIDE 0.9% 1,000 ML IV PRN ×2 (20:05→20:23)
[2018-01-23 21:10] LABS: Lymphocytes 9 % (20-55); Platelet Estimate Normal; Segmented Neutrophils 89 % (50-85); Total Cells Counted 100
[2018-01-23] MEDS: CHLORHEXIDINE 0.12% ORAL RINSE 60 ML BOTTLE SWISH/SPIT SCH (21:16)
[2018-01-23] MEDS ORDERED: FUROSEMIDE 100 MG/10 ML VIAL IV PRN (22:50)
[2018-01-23] MEDS: MIDAZOLAM 10 MG/2 ML VIAL IV PRN (23:48)
[2018-01-24 00:43] LABS: ABG Base Excess 1.2 MMOL/L (-2.5-2.5); ABG HCO3 25.5 MMOL/L (20-26); ABG Oxygen Saturation 99.6 % (95-100); ABG PCO2 34.4 MM HG (35-48); ABG PH 7.462 (7.35-7.45); ABG TCO2 21.8 MMOL/L (23-27); Glucose Heart Surgery 144 MG/DL (74-106); Hematocrit Heart Surgery 35.4 PERCENT (37-47); Hemoglobin Heart Surgery 11.5 G/DL (12.0-16.0); Potassium Heart/CVR 3.8 MMOL/L (3.5-5.1)
[2018-01-24] MEDS: INSULIN REGULAR DRIP 100 ML IV SCH ×3 (00:51→22:59)
[2018-01-24] MEDS: POTASSIUM CHLORIDE RIDER 10 MEQ in PREMIX 1 EACH IV PRN (01:01)
[2018-01-24] MEDS: POTASSIUM CHLORIDE RIDER 20 MEQ in PREMIX 1 EACH IV PRN ×7 (01:35→23:59)
[2018-01-24] MEDS: MIDAZOLAM 10 MG/2 ML VIAL IV PRN ×2 (02:14→04:15)
[2018-01-24] MEDS: LACTATED RINGERS 1,000 ML IV PRN (02:21)
[2018-01-24 02:44] LABS: CKMB % 3.7 %
[2018-01-24 02:46] LABS: Troponin I > 200.000 NG/ML (0.00-0.045)
[2018-01-24] MEDS: MORPHINE 10 MG/1 ML VIAL IV PRN ×4 (04:26→19:49)
[2018-01-24 04:46] LABS: ABG Base Excess 2.2 MMOL/L (-2.5-2.5); ABG HCO3 26.4 MMOL/L (20-26); ABG Oxygen Saturation 99.8 % (95-100); ABG PCO2 33.1 MM HG (35-48); ABG PH 7.488 (7.35-7.45); ABG TCO2 22.1 MMOL/L (23-27); Glucose Heart Surgery 163 MG/DL (74-106); Hematocrit Heart Surgery 36.7 PERCENT (37-47); Hemoglobin Heart Surgery 11.9 G/DL (12.0-16.0); Potassium Heart/CVR 3.9 MMOL/L (3.5-5.1)
[2018-01-24 05:26] LABS: Bilirubin,Direct 0.22 MG/DL (0.0-0.20); Bilirubin,Total 0.8 MG/DL (0.2-1.0); Calcium 9.1 MG/DL (8.5-10.1); Osmolality,Calculated 292.8 MOS/KG (273-304); Total Protein 5.7 G/DL (6.4-8.3)
[2018-01-24 05:31] LABS: Basophils % 0.2 % (0.0-0.8); Hematocrit 34.3 VOL% (35.7-47.0); Immature Granulocytes % 1.1 %; Immature Granulocytes Absolute 0.26 #; Lymphocytes % 20.5 % (21.3-54.2); Mean Corpuscular HGB Conc 33.2 GM/DL (32-36); Mean Corpuscular Hemoglobin 29 PG (27-34); Mean Corpuscular Volume 86.6 FL (87-102); Mean Platelet Volume 11.9 FL (9.6-12.0); Monocytes # 2.4 10*3/uL (0.11-0.8); Monocytes % 9.9 % (1.7-12.7); Neutrophils # 16.7 10*3/uL (1.4-7.4); Neutrophils % 68.3 % (38.7-73.9); Red Cell Distribution Width 15.9 % (9.3-17.3); White Blood Count 24.4 T/CUMM (4-12)
[2018-01-24 05:34] LABS: Hemoglobin 11.4 GM/DL (12.0-16.0); Red Blood Count 3.96 MC/CUMM (3.8-5.5)
[2018-01-24 05:36] LABS: Platelet Count 185 T/CUMM (130-400)
[2018-01-24 05:50] LABS: Band Neutrophils 2 % (0-10); Lymphocytes 16 % (20-55); Segmented Neutrophils 74 % (50-85); Total Cells Counted 100
[2018-01-24 05:51] LABS: Hypochromasia 1+; Platelet Estimate Adequate
[2018-01-24] MEDS: PHENYLEPHRINE DRIP 40 MG/250 ML PREMIX IV PRN (06:43)
[2018-01-24] MEDS: ALBUMIN 5% 12.5 GM in PREMIX 1 EACH IV PRN ×4 (07:00→19:06)
[2018-01-24] MEDS: INSULIN LISPRO 100 UNIT/ML SUBCUT SCH (07:43)
[2018-01-24] MEDS: MONTELUKAST 10 MG TABLET PO SCH (07:43)
[2018-01-24] MEDS: PANTOPRAZOLE 40 MG TABLET PO SCH (07:44)
[2018-01-24] MEDS: amLODIPine 5 MG TABLET PO SCH (07:44)
[2018-01-24] MEDS: predniSONE 20 MG TABLET PO SCH (07:44)
[2018-01-24] MEDS: CHLORHEXIDINE 0.12% ORAL RINSE 60 ML BOTTLE SWISH/SPIT SCH ×3 (07:44→20:48)
[2018-01-24] MEDS: CEFUROXIME INJ 1,500 MG in SYRINGE 1 EACH IV SCH ×2 (08:03→19:26)
[2018-01-24 08:33] LABS: ABG Base Excess 1.7 MMOL/L (-2.5-2.5); ABG HCO3 25.9 MMOL/L (20-26); ABG Oxygen Saturation 99.4 % (95-100); ABG PCO2 35.2 MM HG (35-48); ABG PH 7.463 (7.35-7.45); ABG TCO2 22.8 MMOL/L (23-27); Glucose Heart Surgery 130 MG/DL (74-106); Hematocrit Heart Surgery 31.5 PERCENT (37-47); Hemoglobin Heart Surgery 10.2 G/DL (12.0-16.0)
[2018-01-24 09:32] LABS: CKMB % 2.9 %
[2018-01-24 09:33] LABS: Troponin I > 200.000 NG/ML (0.00-0.045)
[2018-01-24] MEDS ORDERED: FUROSEMIDE 40 MG/4 ML VIAL IV ONE ×2 (12:00→19:30)
[2018-01-24 12:03] LABS: ABG Base Excess 1.6 MMOL/L (-2.5-2.5); ABG HCO3 25.9 MMOL/L (20-26); ABG Oxygen Saturation 99.4 % (95-100); ABG PCO2 34.7 MM HG (35-48); ABG PH 7.467 (7.35-7.45); ABG TCO2 22.7 MMOL/L (23-27); Glucose Heart Surgery 166 MG/DL (74-106); Hematocrit Heart Surgery 30.5 PERCENT (37-47); Hemoglobin Heart Surgery 9.8 G/DL (12.0-16.0); Potassium Heart/CVR 4.3 MMOL/L (3.5-5.1)
[2018-01-24] MEDS: INSULIN REGULAR 100 UNIT/ML IV PRN ×3 (12:18→21:02)
[2018-01-24] MEDS: SODIUM CHLORIDE 0.45% 1,000 ML IV SCH ×2 (15:42→15:43)
[2018-01-24 16:20] LABS: ABG Base Excess 3.2 MMOL/L (-2.5-2.5); ABG HCO3 27.3 MMOL/L (20-26); ABG Oxygen Saturation 98.9 % (95-100); ABG PCO2 35.5 MM HG (35-48); ABG PH 7.481 (7.35-7.45); ABG TCO2 23.9 MMOL/L (23-27); Glucose Heart Surgery 151 MG/DL (74-106); Hematocrit Heart Surgery 31.8 PERCENT (37-47); Hemoglobin Heart Surgery 10.3 G/DL (12.0-16.0); Potassium Heart/CVR 4.2 MMOL/L (3.5-5.1)
[2018-01-24 16:48] LABS: CKMB % 2.2 %
[2018-01-24 20:14] LABS: ABG Base Excess 2.3 MMOL/L (-2.5-2.5); ABG HCO3 26.5 MMOL/L (20-26); ABG Oxygen Saturation 98.9 % (95-100); ABG PCO2 35.4 MM HG (35-48); ABG TCO2 23.5 MMOL/L (23-27); Glucose Heart Surgery 161 MG/DL (74-106); Hemoglobin Heart Surgery 9.4 G/DL (12.0-16.0); Potassium Heart/CVR 4.3 MMOL/L (3.5-5.1)
[2018-01-24] MEDS ORDERED: AMIODARONE 150 MG/3 ML VIAL ONE (20:20)
[2018-01-24] MEDS ORDERED: AMIODARONE 450 MG/9 ML VIAL IV ONE (20:20)
[2018-01-24] MEDS ORDERED: DILTIAZEM 50 MG/10 ML VIAL IV ONE (20:20)
[2018-01-24] MEDS ORDERED: AMIODARONE INJ 150 MG in DEXTROSE 5% 100 ML IV ONE (20:22)
[2018-01-24] MEDS ORDERED: AMIODARONE INJ 450 MG in DEXTROSE 5% 241 ML IV SCH (20:30)
[2018-01-24] MEDS ORDERED: DILTIAZEM 25 MG/5 ML VIAL IV ONE (20:35)
[2018-01-24] MEDS: dilTIAZem Drip 125 MG/125 ML PREMIX IV SCH (20:38)
[2018-01-24] MEDS ORDERED: METOPROLOL TARTRATE 25 MG TABLET PO ONE (23:00)
[2018-01-24] MEDS ORDERED: FUROSEMIDE 40 MG/4 ML VIAL IV PRN (23:39)
[2018-01-24 23:56] LABS: ABG Base Excess 3.5 MMOL/L (-2.5-2.5); ABG HCO3 27.6 MMOL/L (20-26); ABG Oxygen Saturation 99.3 % (95-100); ABG PCO2 33.2 MM HG (35-48); ABG PH 7.508 (7.35-7.45); ABG TCO2 24.1 MMOL/L (23-27); Glucose Heart Surgery 158 MG/DL (74-106); Hematocrit Heart Surgery 29.1 PERCENT (37-47); Hemoglobin Heart Surgery 9.4 G/DL (12.0-16.0); Potassium Heart/CVR 4.3 MMOL/L (3.5-5.1)
[2018-01-25] MEDS: ALBUMIN 5% 12.5 GM in PREMIX 1 EACH IV PRN ×2 (01:06→02:13)
[2018-01-25] MEDS: MIDAZOLAM 2 MG/2 ML VIAL IV PRN (01:30)
[2018-01-25] MEDS: AMIODARONE INJ 450 MG in DEXTROSE 5% 241 ML IV SCH ×3 (02:32→19:20)
[2018-01-25 04:30] LABS: ABG Base Excess 3.6 MMOL/L (-2.5-2.5); ABG HCO3 27.6 MMOL/L (20-26); ABG Oxygen Saturation 99.3 % (95-100); ABG PCO2 33.1 MM HG (35-48); ABG TCO2 23.9 MMOL/L (23-27); Glucose Heart Surgery 143 MG/DL (74-106); Hematocrit Heart Surgery 30.5 PERCENT (37-47); Hemoglobin Heart Surgery 9.9 G/DL (12.0-16.0); Potassium Heart/CVR 4.1 MMOL/L (3.5-5.1)
[2018-01-25] MEDS ORDERED: HEPARIN/NACL 0.9% 2 UNITS/ML 500 ML IV ONE (04:34)
[2018-01-25 04:41] LABS: Basophils # 0.1 10*3/uL (0.0-0.2); Basophils % 0.1 % (0.0-0.8); Hematocrit 27.4 VOL% (35.7-47.0); Hemoglobin 8.8 GM/DL (12.0-16.0); Immature Granulocytes % 1.5 %; Immature Granulocytes Absolute 0.54 #; Lymphocytes % 22.4 % (21.3-54.2); Mean Corpuscular HGB Conc 32.1 GM/DL (32-36); Mean Corpuscular Hemoglobin 29 PG (27-34); Mean Corpuscular Volume 89.8 FL (87-102); Mean Platelet Volume 12.2 FL (9.6-12.0); Monocytes # 5.3 10*3/uL (0.11-0.8); Monocytes % 14.7 % (1.7-12.7); NRBC # 0.09 10*3/uL; Neutrophils # 21.9 10*3/uL (1.4-7.4); Neutrophils % 61.3 % (38.7-73.9); Platelet Count 118 T/CUMM (130-400); Red Blood Count 3.05 MC/CUMM (3.8-5.5); Red Cell Distribution Width 16.1 % (9.3-17.3); White Blood Count 35.7 T/CUMM (4-12)
[2018-01-25] MEDS: POTASSIUM CHLORIDE RIDER 20 MEQ in PREMIX 1 EACH IV PRN (04:42)
[2018-01-25 05:11] LABS: Albumin 3.9 G/DL (3.4-5.0); Bilirubin,Direct 0.25 MG/DL (0.0-0.20); Bilirubin,Total 0.9 MG/DL (0.2-1.0); CKMB % 1.6 %; Calcium 8.8 MG/DL (8.5-10.1); Osmolality,Calculated 290.1 MOS/KG (273-304); Potassium 4.2 MMOL/L (3.5-5.1); Total Protein 6.1 G/DL (6.4-8.3)
[2018-01-25 05:48] LABS: Band Neutrophils 2 % (0-10); Lymphocytes 22 % (20-55); Segmented Neutrophils 68 % (50-85); Total Cells Counted 100
[2018-01-25 05:49] LABS: Anisocytosis 1+; Howell-Jolly Bodies Few
[2018-01-25 05:50] LABS: Hypochromasia 1+; Ovalocytes Few; Platelet Estimate Adequate
[2018-01-25 06:03] LABS: VBG Base Excess 3.9 MEQ/L (0-4); VBG HCO3 27.3 MEQ/L (24-28); VBG Oxygen Saturation 59.4 %; VBG PCO2 38.1 MMHG (41-51); VBG PH 7.47; VBG PO2 33.2 MMHG (17-40)
[2018-01-25] MEDS: INSULIN REGULAR 100 UNIT/ML IV PRN ×3 (07:04→14:15)
[2018-01-25] MEDS: MORPHINE 4 MG/1 ML VIAL IV PRN ×5 (07:36→22:54)
[2018-01-25] MEDS: METOPROLOL TARTRATE 25 MG TABLET PO SCH ×2 (09:53→21:36)
[2018-01-25] MEDS: CHLORHEXIDINE 0.12% ORAL RINSE 60 ML BOTTLE SWISH/SPIT SCH ×2 (09:53→21:30)
[2018-01-25 10:07] LABS: ABG HCO3 27.1 MMOL/L (20-26); ABG Oxygen Saturation 99.3 % (95-100); ABG PCO2 40.7 MM HG (35-48); ABG PH 7.435 (7.35-7.45); ABG TCO2 25.6 MMOL/L (23-27); Glucose Heart Surgery 154 MG/DL (74-106); Hematocrit Heart Surgery 23.7 PERCENT (37-47); Hemoglobin Heart Surgery 7.6 G/DL (12.0-16.0); Potassium Heart/CVR 4.6 MMOL/L (3.5-5.1)
[2018-01-25 10:55] LABS: ABG Base Excess 2.3 MMOL/L (-2.5-2.5); ABG HCO3 26.5 MMOL/L (20-26); ABG Oxygen Saturation 99.3 % (95-100); ABG PCO2 38.7 MM HG (35-48); ABG PH 7.443 (7.35-7.45); ABG TCO2 24.7 MMOL/L (23-27); Glucose Heart Surgery 160 MG/DL (74-106); Hematocrit Heart Surgery 24.6 PERCENT (37-47); Hemoglobin Heart Surgery 7.9 G/DL (12.0-16.0); Potassium Heart/CVR 4.6 MMOL/L (3.5-5.1)
[2018-01-25] MEDS ORDERED: FUROSEMIDE 40 MG/4 ML VIAL IV ONE (12:00)
[2018-01-25 12:34] LABS: ABG Base Excess 3.6 MMOL/L (-2.5-2.5); ABG HCO3 27.5 MMOL/L (20-26); ABG PCO2 38.7 MM HG (35-48); ABG TCO2 28.7 MMOL/L (23-27); Glucose Heart Surgery 131 MG/DL (74-106); Hemoglobin Heart Surgery 8.5 G/DL (12.0-16.0); Potassium Heart/CVR 4.5 MMOL/L (3.5-5.1)
[2018-01-25 14:16] LABS: ABG Base Excess 3.7 MMOL/L (-2.5-2.5); ABG HCO3 27.7 MMOL/L (20-26); ABG Oxygen Saturation 97.2 % (95-100); ABG PCO2 43.6 MM HG (35-48); ABG PH 7.423 (7.35-7.45); ABG PO2 95.4 MM HG (80-95); ABG TCO2 26.6 MMOL/L (23-27); Glucose Heart Surgery 158 MG/DL (74-106); Hematocrit Heart Surgery 24.6 PERCENT (37-47); Hemoglobin Heart Surgery 7.9 G/DL (12.0-16.0); Potassium Heart/CVR 4.6 MMOL/L (3.5-5.1)
[2018-01-25] MEDS: SODIUM CHLORIDE 0.45% 1,000 ML IV SCH ×2 (15:27→15:42)
[2018-01-25] MEDS: INSULIN REGULAR DRIP 100 ML IV SCH (18:06)
[2018-01-25 18:21] LABS: ABG Base Excess 2.5 MMOL/L (-2.5-2.5); ABG HCO3 26.6 MMOL/L (20-26); ABG Oxygen Saturation 98.5 % (95-100); ABG PCO2 39.1 MM HG (35-48); ABG PH 7.441 (7.35-7.45); Glucose Heart Surgery 125 MG/DL (74-106); Hematocrit Heart Surgery 32.2 PERCENT (37-47); Hemoglobin Heart Surgery 10.4 G/DL (12.0-16.0); Potassium Heart/CVR 4.4 MMOL/L (3.5-5.1)
[2018-01-25] MEDS ORDERED: ENOXAPARIN 40 MG/0.4 ML SYRINGE SUBCUT ONE (19:30)
[2018-01-26] MEDS ORDERED: FUROSEMIDE 40 MG/4 ML VIAL IV ONE
[2018-01-26] MEDS: dilTIAZem Drip 125 MG/125 ML PREMIX IV SCH (00:42)
[2018-01-26] MEDS: INSULIN REGULAR DRIP 100 ML IV SCH (00:44)
[2018-01-26] MEDS: MORPHINE 10 MG/1 ML VIAL IV PRN ×4 (02:24→16:36)
[2018-01-26 04:03] LABS: Basophils # 0.1 10*3/uL (0.0-0.2); Basophils % 0.2 % (0.0-0.8); Hematocrit 30.3 VOL% (35.7-47.0); Hemoglobin 9.8 GM/DL (12.0-16.0); Immature Granulocytes % 1.8 %; Immature Granulocytes Absolute 0.68 #; Lymphocytes # 6.9 10*3/uL (1.4-4.0); Lymphocytes % 17.9 % (21.3-54.2); Mean Corpuscular HGB Conc 32.3 GM/DL (32-36); Mean Corpuscular Hemoglobin 29 PG (27-34); Mean Corpuscular Volume 90.7 FL (87-102); Mean Platelet Volume 11.7 FL (9.6-12.0); Monocytes # 5.2 10*3/uL (0.11-0.8); Monocytes % 13.6 % (1.7-12.7); NRBC # 0.74 10*3/uL; Neutrophils # 25.7 10*3/uL (1.4-7.4); Neutrophils % 66.5 % (38.7-73.9); Red Blood Count 3.34 MC/CUMM (3.8-5.5); Red Cell Distribution Width 16.1 % (9.3-17.3); White Blood Count 38.6 T/CUMM (4-12)
[2018-01-26 04:04] LABS: Platelet Count 83 T/CUMM (130-400)
[2018-01-26 04:18] LABS: Albumin 3.1 G/DL (3.4-5.0); Bilirubin,Direct 0.2 MG/DL (0.0-0.20); Bilirubin,Total 0.7 MG/DL (0.2-1.0); Calcium 8.1 MG/DL (8.5-10.1); Osmolality,Calculated 291.1 MOS/KG (273-304)
[2018-01-26 04:24] LABS: Howell-Jolly Bodies Few; Platelet Estimate Decreased; Polychromasia Few
[2018-01-26 04:26] LABS: Microcytosis 1+; Smudge Cells Few
[2018-01-26 04:38] LABS: CKMB % 1.6 %
[2018-01-26 04:57] LABS: Troponin I 52.8 NG/ML (0.00-0.045)
[2018-01-26] MEDS: POTASSIUM CHLORIDE RIDER 20 MEQ in PREMIX 1 EACH IV PRN (06:21)
[2018-01-26] MEDS: AMIODARONE INJ 450 MG in DEXTROSE 5% 241 ML IV SCH ×3 (08:18→23:13)
[2018-01-26] MEDS: METOPROLOL TARTRATE 25 MG TABLET PO SCH (08:30)
[2018-01-26] MEDS: CHLORHEXIDINE 0.12% ORAL RINSE 60 ML BOTTLE SWISH/SPIT SCH ×2 (08:30→20:10)
[2018-01-26] MEDS: PHENYLEPHRINE DRIP 40 MG/250 ML PREMIX IV PRN ×2 (08:45→20:01)
[2018-01-26] MEDS ORDERED: WARFARIN 5 MG TABLET PO ONE (08:53)
[2018-01-26] MEDS ORDERED: METOPROLOL TARTRATE 25 MG TABLET PO SCH (09:00)
[2018-01-26] MEDS: ROSUVASTATIN 20 MG TABLET PO SCH (09:39)
[2018-01-26] MEDS: ENOXAPARIN 40 MG/0.4 ML SYRINGE SUBCUT SCH ×2 (09:40→20:10)
[2018-01-26] MEDS: INSULIN LISPRO 100 UNIT/ML SUBCUT SCH ×4 (09:53→21:04)
[2018-01-26] MEDS ORDERED: AMIODARONE 450 MG/9 ML VIAL IV ONE (12:45)
[2018-01-26] MEDS: SODIUM CHLORIDE 0.45% 1,000 ML IV SCH ×2 (16:16→18:18)
[2018-01-26] MEDS: WARFARIN 5 MG TABLET PO SCH (18:19)
[2018-01-27] MEDS ORDERED: FUROSEMIDE 40 MG/4 ML VIAL IV ONE
[2018-01-27] MEDS: INSULIN LISPRO 100 UNIT/ML SUBCUT SCH ×5 (01:51→22:40)
[2018-01-27] MEDS: MORPHINE 10 MG/1 ML VIAL IV PRN (01:51)
[2018-01-27] MEDS: AMIODARONE INJ 450 MG in DEXTROSE 5% 241 ML IV SCH (04:37)
[2018-01-27] MEDS: METOPROLOL TARTRATE 25 MG TABLET PO SCH ×3 (05:45→22:29)
[2018-01-27 05:50] LABS: Basophils # 0.1 10*3/uL (0.0-0.2); Basophils % 0.2 % (0.0-0.8); Hematocrit 29.9 VOL% (35.7-47.0); Hemoglobin 9.1 GM/DL (12.0-16.0); Lymphocytes % 17.4 % (21.3-54.2); Mean Corpuscular HGB Conc 30.4 GM/DL (32-36); Mean Corpuscular Hemoglobin 29 PG (27-34); Mean Platelet Volume 12.1 FL (9.6-12.0); Monocytes # 3.3 10*3/uL (0.11-0.8); Monocytes % 9.6 % (1.7-12.7); NRBC # 1.41 10*3/uL; Neutrophils # 24.2 10*3/uL (1.4-7.4); Neutrophils % 70.8 % (38.7-73.9); Platelet Count 126 T/CUMM (130-400); Red Blood Count 3.18 MC/CUMM (3.8-5.5); Red Cell Distribution Width 15.9 % (9.3-17.3); White Blood Count 34.3 T/CUMM (4-12)
[2018-01-27 05:56] LABS: INR 1.1; PT Patient Result 12.2 SECS
[2018-01-27 06:10] LABS: Hypochromasia 1+; Lymphocytes 19 % (20-55); Nucleated Red Blood Cells 6 (0-5); Platelet Estimate Normal; Segmented Neutrophils 71 % (50-85); Total Cells Counted 100
[2018-01-27 06:21] LABS: Osmolality,Calculated 292.5 MOS/KG (273-304); Potassium 4.3 MMOL/L (3.5-5.1)
[2018-01-27] MEDS: PHENYLEPHRINE DRIP 40 MG/250 ML PREMIX IV PRN ×2 (06:32→18:20)
[2018-01-27] MEDS ORDERED: HEPARIN/NACL 0.9% 2 UNITS/ML 500 ML IV ONE (07:05)
[2018-01-27] MEDS: POTASSIUM CHLORIDE RIDER 20 MEQ in PREMIX 1 EACH IV PRN (07:06)
[2018-01-27] MEDS: ASPIRIN EC 81 MG TABLET PO SCH (09:40)
[2018-01-27] MEDS: AMIODARONE 200 MG TABLET PO SCH ×2 (09:40→22:29)
[2018-01-27] MEDS: ENOXAPARIN 40 MG/0.4 ML SYRINGE SUBCUT SCH ×2 (09:40→22:30)
[2018-01-27] MEDS: ROSUVASTATIN 20 MG TABLET PO SCH (09:40)
[2018-01-27] MEDS: CHLORHEXIDINE 0.12% ORAL RINSE 60 ML BOTTLE SWISH/SPIT SCH ×2 (09:40→22:30)
[2018-01-27] MEDS ORDERED: LEVOFLOXACIN INJ 500 MG in PREMIX 1 EACH IV SCH (10:00)
[2018-01-27 10:34] LABS: Apearance,Urine Slightly Hazy (Clear); Bilirubin,Urine Negative (Negative); Blood, Urine Negative (Negative); Glucose,Urine (UA) Negative (Negative); Hyaline Casts,Urine 3 /LPF (0-3); Ketones,Urine Negative (Negative); Mucus,Urine Occasional /LPF (Occasional); Nitrite,Urine Negative (Negative); Protein,Urine Negative; RBC,Urine <1 /HPF (0-4); Urine Color Yellow (Yellow); Urine Specific Gravity 1.019 (1.001-1.035); Urine Urobilinogen < 2.0 EU/DL (0.2-1.0); WBC,Urine <1 /HPF (0-6)
[2018-01-27] MEDS: MORPHINE 4 MG/1 ML VIAL IV PRN (10:55)
[2018-01-27] MEDS: DOXYCYCLINE HYCLATE 100 MG CAPSULE PO SCH ×2 (10:55→22:29)
[2018-01-27] MEDS: LEVALBUTEROL 0.63 MG/3 ML NEB RESP TX SCH ×3 (11:23→20:10)
[2018-01-27] MEDS: ALBUMIN 5% 12.5 GM in PREMIX 1 EACH IV PRN ×2 (15:55→18:20)
[2018-01-27] MEDS: SODIUM CHLORIDE 0.45% 1,000 ML IV SCH ×2 (18:00→18:20)
[2018-01-27] MEDS: WARFARIN 5 MG TABLET PO SCH (18:25)
[2018-01-28] MEDS: INSULIN LISPRO 100 UNIT/ML SUBCUT SCH ×6 (01:15→22:07)
[2018-01-28] MEDS: LEVALBUTEROL 0.63 MG/3 ML NEB RESP TX SCH ×4 (01:36→19:48)
[2018-01-28 05:44] LABS: Basophils # 0.1 10*3/uL (0.0-0.2); Basophils % 0.1 % (0.0-0.8); Hematocrit 28.9 VOL% (35.7-47.0); Hemoglobin 8.8 GM/DL (12.0-16.0); Immature Granulocytes % 2.7 %; Immature Granulocytes Absolute 0.91 #; Lymphocytes # 6.5 10*3/uL (1.4-4.0); Lymphocytes % 19.1 % (21.3-54.2); Mean Corpuscular HGB Conc 30.4 GM/DL (32-36); Mean Corpuscular Hemoglobin 29 PG (27-34); Mean Corpuscular Volume 94.4 FL (87-102); Mean Platelet Volume 11.5 FL (9.6-12.0); Monocytes # 4.5 10*3/uL (0.11-0.8); Monocytes % 13.3 % (1.7-12.7); NRBC # 2.06 10*3/uL; Neutrophils # 22.1 10*3/uL (1.4-7.4); Neutrophils % 64.8 % (38.7-73.9); Platelet Count 160 T/CUMM (130-400); Red Blood Count 3.06 MC/CUMM (3.8-5.5); Red Cell Distribution Width 16.2 % (9.3-17.3); White Blood Count 34.1 T/CUMM (4-12)
[2018-01-28 05:50] LABS: INR 1.7; PT Patient Result 18.7 SECS
[2018-01-28 06:08] LABS: Calcium 8.3 MG/DL (8.5-10.1); Osmolality,Calculated 286.7 MOS/KG (273-304); Potassium 4.4 MMOL/L (3.5-5.1)
[2018-01-28 06:23] LABS: Anisocytosis 1+; Hypochromasia 1+; Lymphocytes 11 % (20-55); Nucleated Red Blood Cells 4 (0-5); Platelet Estimate Adequate; Polychromasia Few; Segmented Neutrophils 86 % (50-85); Total Cells Counted 100
[2018-01-28] MEDS: POTASSIUM CHLORIDE RIDER 20 MEQ in PREMIX 1 EACH IV PRN (06:52)
[2018-01-28] MEDS: ENOXAPARIN 40 MG/0.4 ML SYRINGE SUBCUT SCH ×2 (08:50→21:42)
[2018-01-28] MEDS: ROSUVASTATIN 20 MG TABLET PO SCH (08:50)
[2018-01-28] MEDS: DOXYCYCLINE HYCLATE 100 MG CAPSULE PO SCH ×2 (08:50→21:41)
[2018-01-28] MEDS: AMIODARONE 200 MG TABLET PO SCH ×2 (08:50→21:41)
[2018-01-28] MEDS: METOPROLOL TARTRATE 25 MG TABLET PO SCH (08:50)
[2018-01-28] MEDS: ASPIRIN EC 81 MG TABLET PO SCH (08:50)
[2018-01-28] MEDS: CHLORHEXIDINE 0.12% ORAL RINSE 60 ML BOTTLE SWISH/SPIT SCH (08:50)
[2018-01-28] MEDS: PHENYLEPHRINE DRIP 40 MG/250 ML PREMIX IV PRN (09:30)
[2018-01-28] MEDS ORDERED: SODIUM CHLORIDE 0.45% 1,000 ML IV SCH (11:00)
[2018-01-28] MEDS ORDERED: METOPROLOL TARTRATE 25 MG TABLET PO ONE (12:52)
[2018-01-28] MEDS: WARFARIN 5 MG TABLET PO SCH (18:05)
[2018-01-28] MEDS ORDERED: METOPROLOL TARTRATE 50 MG TABLET PO SCH (21:00)
[2018-01-28] MEDS: MORPHINE 4 MG/1 ML VIAL IV PRN (21:32)
[2018-01-29] MEDS: LEVALBUTEROL 0.63 MG/3 ML NEB RESP TX SCH ×4 (01:14→19:49)
[2018-01-29] MEDS: INSULIN LISPRO 100 UNIT/ML SUBCUT SCH ×6 (01:16→20:36)
[2018-01-29 05:30] LABS: Calcium 7.8 MG/DL (8.5-10.1); Osmolality,Calculated 285.5 MOS/KG (273-304); Potassium 4.2 MMOL/L (3.5-5.1)
[2018-01-29 05:36] LABS: Basophils # 0.1 10*3/uL (0.0-0.2); Basophils % 0.2 % (0.0-0.8); Eosinophils # 0.1 10*3/uL (0.0-0.87); Eosinophils % 0.3 % (0.00-10.9); Hematocrit 28.9 VOL% (35.7-47.0); Hemoglobin 8.8 GM/DL (12.0-16.0); Immature Granulocytes % 2.8 %; Lymphocytes # 7.9 10*3/uL (1.4-4.0); Lymphocytes % 21.7 % (21.3-54.2); Mean Corpuscular HGB Conc 30.4 GM/DL (32-36); Mean Corpuscular Hemoglobin 29 PG (27-34); Mean Corpuscular Volume 94.4 FL (87-102); Mean Platelet Volume 11.1 FL (9.6-12.0); Monocytes # 4.4 10*3/uL (0.11-0.8); Monocytes % 12.2 % (1.7-12.7); NRBC # 1.76 10*3/uL; Neutrophils # 22.7 10*3/uL (1.4-7.4); Neutrophils % 62.8 % (38.7-73.9); Platelet Count 203 T/CUMM (130-400); Red Blood Count 3.06 MC/CUMM (3.8-5.5); Red Cell Distribution Width 16.1 % (9.3-17.3); White Blood Count 36.2 T/CUMM (4-12)
[2018-01-29 05:50] LABS: INR 2.2
[2018-01-29] MEDS ORDERED: AMIODARONE INJ 150 MG in DEXTROSE 5% 100 ML IV ONE (05:50)
[2018-01-29 05:55] LABS: PT Patient Result 24.2 SECS
[2018-01-29 06:19] LABS: Atypical Lymphocytes Few; Hypochromasia 1+; Lymphocytes 31 % (20-55); Nucleated Red Blood Cells 4 (0-5); Platelet Estimate Adequate; Segmented Neutrophils 61 % (50-85); Total Cells Counted 100
[2018-01-29 06:20] LABS: Macrocytosis Slight; Polychromasia Few
[2018-01-29] MEDS: ASPIRIN EC 81 MG TABLET PO SCH (08:20)
[2018-01-29] MEDS: DOXYCYCLINE HYCLATE 100 MG CAPSULE PO SCH ×2 (08:20→20:35)
[2018-01-29] MEDS: ENOXAPARIN 40 MG/0.4 ML SYRINGE SUBCUT SCH (08:24)
[2018-01-29] MEDS: ROSUVASTATIN 20 MG TABLET PO SCH (10:45)
[2018-01-29] MEDS: AMIODARONE 200 MG TABLET PO SCH ×2 (10:45→20:35)
[2018-01-29] MEDS: PHENYLEPHRINE DRIP 40 MG/250 ML PREMIX IV PRN (11:19)
[2018-01-29] MEDS: WARFARIN 5 MG TABLET PO SCH (18:11)
[2018-01-29] MEDS: ONDANSETRON 4 MG/2 ML VIAL IV PRN (18:11)
[2018-01-29] MEDS: MORPHINE 4 MG/1 ML VIAL IV PRN (21:10)
[2018-01-30] MEDS: INSULIN LISPRO 100 UNIT/ML SUBCUT SCH ×7 (00:20→23:51)
[2018-01-30] MEDS: LEVALBUTEROL 0.63 MG/3 ML NEB RESP TX SCH ×4 (02:01→18:16)
[2018-01-30] MEDS: ONDANSETRON 4 MG/2 ML VIAL IV PRN ×2 (02:25→09:28)
[2018-01-30] MEDS: ALBUMIN 5% 12.5 GM in PREMIX 1 EACH IV PRN (02:25)
[2018-01-30 05:25] LABS: Basophils # 0.1 10*3/uL (0.0-0.2); Basophils % 0.1 % (0.0-0.8); Eosinophils # 0.2 10*3/uL (0.0-0.87); Eosinophils % 0.7 % (0.00-10.9); Hematocrit 28.3 VOL% (35.7-47.0); Hemoglobin 8.6 GM/DL (12.0-16.0); Immature Granulocytes % 2.7 %; Lymphocytes # 6.8 10*3/uL (1.4-4.0); Lymphocytes % 20.2 % (21.3-54.2); Mean Corpuscular HGB Conc 30.4 GM/DL (32-36); Mean Corpuscular Hemoglobin 29 PG (27-34); Mean Corpuscular Volume 95.3 FL (87-102); Mean Platelet Volume 11.4 FL (9.6-12.0); Monocytes # 4.2 10*3/uL (0.11-0.8); Monocytes % 12.5 % (1.7-12.7); NRBC # 1.37 10*3/uL; Neutrophils # 21.3 10*3/uL (1.4-7.4); Neutrophils % 63.8 % (38.7-73.9); Platelet Count 232 T/CUMM (130-400); Red Blood Count 2.97 MC/CUMM (3.8-5.5); Red Cell Distribution Width 16.6 % (9.3-17.3); White Blood Count 33.4 T/CUMM (4-12)
[2018-01-30 05:44] LABS: Calcium 8.2 MG/DL (8.5-10.1); Osmolality,Calculated 281.5 MOS/KG (273-304)
[2018-01-30] MEDS: POTASSIUM CHLORIDE RIDER 20 MEQ in PREMIX 1 EACH IV PRN (06:12)
[2018-01-30 06:32] LABS: Band Neutrophils 1 % (0-10); Hypochromasia Slight; Lymphocytes 23 % (20-55); Nucleated Red Blood Cells 4 (0-5); Ovalocytes 1+; Platelet Estimate Normal; Polychromasia 2+; Segmented Neutrophils 65 % (50-85); Total Cells Counted 100
[2018-01-30 07:10] LABS: INR 2.7; PT Patient Result 29.6 SECS
[2018-01-30] MEDS: AMIODARONE 200 MG TABLET PO SCH ×2 (08:26→20:39)
[2018-01-30] MEDS: DOXYCYCLINE HYCLATE 100 MG CAPSULE PO SCH ×2 (08:26→20:39)
[2018-01-30] MEDS: ROSUVASTATIN 20 MG TABLET PO SCH (08:26)
[2018-01-30] MEDS: ASPIRIN EC 81 MG TABLET PO SCH (08:26)
[2018-01-30] MEDS ORDERED: METOCLOPRAMIDE 10 MG/2 ML VIAL IV ONE (09:22)
[2018-01-30] MEDS ORDERED: SKIN HEALING OINT (AQUAPHOR) 50 GM TUBE TOP PRN (13:34)
[2018-01-30] MEDS: ZINC OXIDE PASTE 113 GM TUBE TOP SCH ×2 (17:06→20:39)
[2018-01-30] MEDS: WARFARIN 5 MG TABLET PO SCH (18:09)
[2018-01-30] MEDS ORDERED: ACETAMINOPHEN 325 MG TABLET PO PRN (20:23)
[2018-01-31] MEDS: LEVALBUTEROL 0.63 MG/3 ML NEB RESP TX SCH ×2 (00:48→07:45)
[2018-01-31] MEDS: INSULIN LISPRO 100 UNIT/ML SUBCUT SCH ×2 (04:30→07:30)
[2018-01-31 05:27] LABS: Calcium 8.4 MG/DL (8.5-10.1); Osmolality,Calculated 278.7 MOS/KG (273-304); Potassium 3.8 MMOL/L (3.5-5.1)
[2018-01-31 05:33] LABS: Basophils % 0.1 % (0.0-0.8); Eosinophils # 0.4 10*3/uL (0.0-0.87); Eosinophils % 1.1 % (0.00-10.9); Hematocrit 28.4 VOL% (35.7-47.0); Hemoglobin 8.7 GM/DL (12.0-16.0); INR 2.5; Immature Granulocytes % 2.8 %; Immature Granulocytes Absolute 0.86 #; Lymphocytes # 5.8 10*3/uL (1.4-4.0); Lymphocytes % 18.9 % (21.3-54.2); Mean Corpuscular HGB Conc 30.6 GM/DL (32-36); Mean Corpuscular Hemoglobin 29 PG (27-34); Mean Corpuscular Volume 94.7 FL (87-102); Mean Platelet Volume 10.8 FL (9.6-12.0); Monocytes # 3.4 10*3/uL (0.11-0.8); Monocytes % 10.9 % (1.7-12.7); NRBC # 0.92 10*3/uL; Neutrophils # 20.5 10*3/uL (1.4-7.4); Neutrophils % 66.2 % (38.7-73.9); Platelet Count 261 T/CUMM (130-400); Red Cell Distribution Width 16.8 % (9.3-17.3); White Blood Count 30.9 T/CUMM (4-12)
[2018-01-31 05:55] LABS: PT Patient Result 27.4 SECS
[2018-01-31] MEDS: POTASSIUM CHLORIDE RIDER 20 MEQ in PREMIX 1 EACH IV PRN (06:00)
[2018-01-31] MEDS: POTASSIUM CHLORIDE RIDER 10 MEQ in PREMIX 1 EACH IV PRN (07:00)
[2018-01-31 07:21] LABS: Lymphocytes 16 % (20-55); Nucleated Red Blood Cells 1 (0-5); Platelet Estimate Normal; Polychromasia Few; Segmented Neutrophils 76 % (50-85); Total Cells Counted 100
[2018-01-31] MEDS: ASPIRIN EC 81 MG TABLET PO SCH (08:30)
[2018-01-31] MEDS: AMIODARONE 200 MG TABLET PO SCH ×2 (08:30→21:41)
[2018-01-31] MEDS: ROSUVASTATIN 20 MG TABLET PO SCH (08:30)
[2018-01-31] MEDS ORDERED: SODIUM CHLORIDE 0.45% 1,000 ML IV SCH (08:30)
[2018-01-31] MEDS: ZINC OXIDE PASTE 113 GM TUBE TOP SCH ×2 (08:30→22:17)
[2018-01-31] MEDS: DOXYCYCLINE HYCLATE 100 MG CAPSULE PO SCH ×2 (08:30→21:41)
[2018-01-31] MEDS ORDERED: GLUCAGON 1 MG VIAL IM PRN ×3 (09:20→11:46)
[2018-01-31] MEDS ORDERED: ACETAMINOPHEN 325 MG TABLET PO PRN (09:20)
[2018-01-31] MEDS ORDERED: DEXTROSE 50% 25 GM/50 ML VIAL IV PRN ×3 (09:20→11:46)
[2018-01-31] MEDS ORDERED: MAGNESIUM SULF RIDER 4 GM in PREMIX 1 EACH IV PRN (09:20)
[2018-01-31] MEDS ORDERED: MAGNESIUM SULF RIDER 2 GM in PREMIX 1 EACH IV PRN (09:20)
[2018-01-31] MEDS ORDERED: SODIUM CHLOR 0.45% KCL 20 MEQ 20 MEQ/1,000 ML BAG IV SCH (09:20)
[2018-01-31] MEDS ORDERED: ALUMINUM/MAGNES/SIMETH MAX STR 30 ML UDCUP PO PRN (09:20)
[2018-01-31] MEDS: CHLORHEXIDINE 0.12% ORAL RINSE 60 ML BOTTLE SWISH/SPIT SCH ×3 (10:06→22:37)
[2018-01-31] MEDS: PANTOPRAZOLE 40 MG TABLET PO SCH (10:06)
[2018-01-31] MEDS: DOCUSATE SODIUM 100 MG CAPSULE PO SCH (10:06)
[2018-01-31] MEDS: FERROUS SULFATE 325 MG TABLET PO SCH (10:06)
[2018-01-31] MEDS: INSULIN REGULAR 100 UNIT/ML SUBCUT SCH ×3 (12:34→21:42)
[2018-01-31] MEDS: WARFARIN 5 MG TABLET PO SCH (17:17)
[2018-01-31] MEDS: ZALEPLON 5 MG CAPSULE PO PRN (21:41)
[2018-01-31] MEDS: oxyCODONE/ACETAMINOPHEN 5-325 MG TABLET PO PRN (21:41)
[2018-02-01 03:30] LABS: Basophils % 0.1 % (0.0-0.8); Eosinophils # 0.4 10*3/uL (0.0-0.87); Eosinophils % 1.4 % (0.00-10.9); Hematocrit 29.5 VOL% (35.7-47.0); Hemoglobin 8.7 GM/DL (12.0-16.0); Immature Granulocytes % 2.2 %; Immature Granulocytes Absolute 0.61 #; Lymphocytes # 4.6 10*3/uL (1.4-4.0); Lymphocytes % 16.8 % (21.3-54.2); Mean Corpuscular HGB Conc 29.5 GM/DL (32-36); Mean Corpuscular Hemoglobin 29 PG (27-34); Mean Platelet Volume 10.6 FL (9.6-12.0); Monocytes # 2.8 10*3/uL (0.11-0.8); Monocytes % 10.2 % (1.7-12.7); NRBC # 0.56 10*3/uL; Neutrophils % 69.3 % (38.7-73.9); Platelet Count 308 T/CUMM (130-400); Red Blood Count 3.04 MC/CUMM (3.8-5.5); Red Cell Distribution Width 16.9 % (9.3-17.3); White Blood Count 27.4 T/CUMM (4-12)
[2018-02-01 03:45] LABS: Calcium 8.3 MG/DL (8.5-10.1); Potassium 4.8 MMOL/L (3.5-5.1)
[2018-02-01 03:51] LABS: Alanine Aminotransferase 56 U/L (13-56); Albumin 2.8 G/DL (3.4-5.0); Alkaline Phosphatase 133 U/L (45-117); Aspartate Amino Transferase 29 U/L (0-37); Blood Urea Nitrogen 17 MG/DL (7-18); Calcium 8.5 MG/DL (8.5-10.1); Glucose 201 MG/DL (74-106); Sodium 136 MMOL/L (136-145); Total Protein 5.8 G/DL (6.4-8.3)
[2018-02-01 05:01] LABS: Band Neutrophils 3 % (0-10); Eosinophils 1 % (0-10); Hypochromasia 1+; Lymphocytes 21 % (20-55); Macrocytosis Slight; Platelet Estimate Adequate; Segmented Neutrophils 65 % (50-85); Total Cells Counted 100
[2018-02-01] MEDS: oxyCODONE/ACETAMINOPHEN 5-325 MG TABLET PO PRN ×3 (05:46→18:02)
[2018-02-01] MEDS ORDERED: FUROSEMIDE 40 MG/4 ML VIAL IV ONE (06:00)
[2018-02-01] MEDS: DOCUSATE SODIUM 100 MG CAPSULE PO SCH (08:44)
[2018-02-01] MEDS: AMIODARONE 200 MG TABLET PO SCH ×2 (08:45→21:11)
[2018-02-01] MEDS: ROSUVASTATIN 20 MG TABLET PO SCH (08:45)
[2018-02-01] MEDS: ASPIRIN EC 81 MG TABLET PO SCH (08:45)
[2018-02-01] MEDS: FERROUS SULFATE 325 MG TABLET PO SCH (08:45)
[2018-02-01] MEDS: PANTOPRAZOLE 40 MG TABLET PO SCH (08:45)
[2018-02-01] MEDS: INSULIN REGULAR 100 UNIT/ML SUBCUT SCH ×4 (08:45→21:11)
[2018-02-01] MEDS: ZINC OXIDE PASTE 113 GM TUBE TOP SCH ×2 (08:53→21:11)
[2018-02-01] MEDS: CHLORHEXIDINE 0.12% ORAL RINSE 60 ML BOTTLE SWISH/SPIT SCH ×2 (08:53→21:11)
[2018-02-01] MEDS: DOXYCYCLINE HYCLATE 100 MG CAPSULE PO SCH (08:54)
[2018-02-01] MEDS: LEVALBUTEROL 0.63 MG/3 ML NEB RESP TX SCH (09:33)
[2018-02-01] MEDS: CLINDAMYCIN INJ 600 MG in PREMIX 1 EACH IV SCH ×2 (09:40→17:15)
[2018-02-01] MEDS: WARFARIN 5 MG TABLET PO SCH (17:16)
[2018-02-01] MEDS: MAGNESIUM HYDROXIDE SUSP 30 ML UDCUP PO PRN (18:21)
[2018-02-02] MEDS: CLINDAMYCIN INJ 600 MG in PREMIX 1 EACH IV SCH ×3 (02:15→17:08)
[2018-02-02] MEDS: oxyCODONE/ACETAMINOPHEN 5-325 MG TABLET PO PRN ×3 (03:56→20:43)
[2018-02-02 04:11] LABS: Basophils % 0.1 % (0.0-0.8); Eosinophils # 0.5 10*3/uL (0.0-0.87); Eosinophils % 2.4 % (0.00-10.9); Hematocrit 26.8 VOL% (35.7-47.0); Hemoglobin 8.1 GM/DL (12.0-16.0); Immature Granulocytes % 1.8 %; Immature Granulocytes Absolute 0.36 #; Lymphocytes # 3.9 10*3/uL (1.4-4.0); Lymphocytes % 20.1 % (21.3-54.2); Mean Corpuscular HGB Conc 30.2 GM/DL (32-36); Mean Corpuscular Hemoglobin 28 PG (27-34); Mean Corpuscular Volume 93.7 FL (87-102); Mean Platelet Volume 10.5 FL (9.6-12.0); Monocytes % 10.2 % (1.7-12.7); NRBC # 0.36 10*3/uL; Neutrophils # 12.8 10*3/uL (1.4-7.4); Neutrophils % 65.4 % (38.7-73.9); Platelet Count 328 T/CUMM (130-400); Red Blood Count 2.86 MC/CUMM (3.8-5.5); Red Cell Distribution Width 16.8 % (9.3-17.3); White Blood Count 19.6 T/CUMM (4-12)
[2018-02-02 04:52] LABS: Alanine Aminotransferase 46 U/L (13-56); Albumin 2.6 G/DL (3.4-5.0); Alkaline Phosphatase 138 U/L (45-117); Aspartate Amino Transferase 24 U/L (0-37); Bilirubin,Indirect 0.9 MG/DL (0.0-1.0); Blood Urea Nitrogen 17 MG/DL (7-18); Calcium 7.8 MG/DL (8.5-10.1); Glucose 262 MG/DL (74-106); Osmolality,Calculated 283.8 MOS/KG (273-304); Potassium 3.5 MMOL/L (3.5-5.1); Sodium 137 MMOL/L (136-145); Total Protein 5.7 G/DL (6.4-8.3)
[2018-02-02] MEDS: INSULIN REGULAR 100 UNIT/ML SUBCUT SCH ×4 (08:38→21:39)
[2018-02-02] MEDS: FUROSEMIDE 40 MG TABLET PO SCH ×2 (08:39→15:56)
[2018-02-02] MEDS: FERROUS SULFATE 325 MG TABLET PO SCH (08:39)
[2018-02-02] MEDS: ROSUVASTATIN 20 MG TABLET PO SCH (08:39)
[2018-02-02] MEDS: DOCUSATE SODIUM 100 MG CAPSULE PO SCH (08:39)
[2018-02-02] MEDS: PANTOPRAZOLE 40 MG TABLET PO SCH (08:39)
[2018-02-02] MEDS: ASPIRIN EC 81 MG TABLET PO SCH (08:39)
[2018-02-02] MEDS: AMIODARONE 200 MG TABLET PO SCH ×2 (08:39→20:43)
[2018-02-02] MEDS: CHLORHEXIDINE 0.12% ORAL RINSE 60 ML BOTTLE SWISH/SPIT SCH ×2 (08:40→20:45)
[2018-02-02] MEDS: ZINC OXIDE PASTE 113 GM TUBE TOP SCH ×2 (08:40→20:47)
[2018-02-02] MEDS: POTASSIUM CHLORIDE 20 MEQ TABLET PO PRN ×2 (09:37→15:57)
[2018-02-02] MEDS: MAGNESIUM HYDROXIDE SUSP 30 ML UDCUP PO PRN (09:39)
[2018-02-02] MEDS: WARFARIN 5 MG TABLET PO SCH (17:07)
[2018-02-02] MEDS: INSULIN GLARGINE 100 UNIT/ML SUBCUT SCH (21:39)
[2018-02-03] MEDS: CLINDAMYCIN INJ 600 MG in PREMIX 1 EACH IV SCH ×3 (01:48→18:31)
[2018-02-03 05:34] LABS: Basophils % 0.2 % (0.0-0.8); Eosinophils # 0.6 10*3/uL (0.0-0.87); Eosinophils % 3.3 % (0.00-10.9); Hemoglobin 8.3 GM/DL (12.0-16.0); Immature Granulocytes % 1.1 %; Immature Granulocytes Absolute 0.19 #; Lymphocytes # 3.8 10*3/uL (1.4-4.0); Lymphocytes % 22.1 % (21.3-54.2); Mean Corpuscular HGB Conc 30.7 GM/DL (32-36); Mean Corpuscular Hemoglobin 29 PG (27-34); Mean Corpuscular Volume 93.4 FL (87-102); Mean Platelet Volume 9.8 FL (9.6-12.0); Monocytes # 1.8 10*3/uL (0.11-0.8); Monocytes % 10.5 % (1.7-12.7); NRBC # 0.28 10*3/uL; Neutrophils # 10.7 10*3/uL (1.4-7.4); Neutrophils % 62.8 % (38.7-73.9); Platelet Count 362 T/CUMM (130-400); Red Blood Count 2.89 MC/CUMM (3.8-5.5); Red Cell Distribution Width 17.2 % (9.3-17.3); White Blood Count 17.1 T/CUMM (4-12)
[2018-02-03 05:48] LABS: Calcium 7.9 MG/DL (8.5-10.1)
[2018-02-03 05:49] LABS: INR 4.2; Osmolality,Calculated 278.1 MOS/KG (273-304)
[2018-02-03 05:50] LABS: PT Patient Result 45.1 SECS
[2018-02-03] MEDS ORDERED: AMIODARONE 200 MG TABLET PO SCH (09:00)
[2018-02-03] MEDS: INSULIN REGULAR 100 UNIT/ML SUBCUT SCH ×4 (09:26→20:54)
[2018-02-03] MEDS: PANTOPRAZOLE 40 MG TABLET PO SCH (09:28)
[2018-02-03] MEDS: POLYETHYLENE GLYCOL POWDER 17 GM PACK PO SCH (09:28)
[2018-02-03] MEDS: ASPIRIN EC 81 MG TABLET PO SCH (09:28)
[2018-02-03] MEDS: ROSUVASTATIN 20 MG TABLET PO SCH (09:28)
[2018-02-03] MEDS: DOCUSATE SODIUM 100 MG CAPSULE PO SCH (09:28)
[2018-02-03] MEDS: FUROSEMIDE 40 MG TABLET PO SCH ×2 (09:29→16:55)
[2018-02-03] MEDS: FERROUS SULFATE 325 MG TABLET PO SCH (09:29)
[2018-02-03] MEDS: ZINC OXIDE PASTE 113 GM TUBE TOP SCH ×2 (09:30→20:55)
[2018-02-03] MEDS: CHLORHEXIDINE 0.12% ORAL RINSE 60 ML BOTTLE SWISH/SPIT SCH ×2 (09:30→20:56)
[2018-02-03] MEDS: oxyCODONE/ACETAMINOPHEN 5-325 MG TABLET PO PRN (09:34)
[2018-02-03] MEDS ORDERED: DIGOXIN 0.5 MG/2 ML AMP IV ONE (10:22)
[2018-02-03] MEDS ORDERED: AMIODARONE INJ 450 MG in DEXTROSE 5% 241 ML IV SCH (12:00)
[2018-02-03] MEDS: INSULIN GLARGINE 100 UNIT/ML SUBCUT SCH (20:55)
[2018-02-03] MEDS: KETOROLAC 15 MG/1 ML VIAL IV PRN (20:55)
[2018-02-03] MEDS: AMIODARONE INJ 450 MG in DEXTROSE 5% 241 ML IV SCH (22:39)
[2018-02-04] MEDS: CLINDAMYCIN INJ 600 MG in PREMIX 1 EACH IV SCH ×3 (03:13→17:57)
[2018-02-04 04:23] LABS: Basophils # 0.1 10*3/uL (0.0-0.2); Basophils % 0.3 % (0.0-0.8); Eosinophils # 0.8 10*3/uL (0.0-0.87); Eosinophils % 4.3 % (0.00-10.9); Hematocrit 26.9 VOL% (35.7-47.0); Hemoglobin 8.3 GM/DL (12.0-16.0); Immature Granulocytes % 1.4 %; Immature Granulocytes Absolute 0.26 #; Lymphocytes # 3.4 10*3/uL (1.4-4.0); Lymphocytes % 18.9 % (21.3-54.2); Mean Corpuscular HGB Conc 30.9 GM/DL (32-36); Mean Corpuscular Hemoglobin 29 PG (27-34); Mean Corpuscular Volume 93.7 FL (87-102); Monocytes % 10.8 % (1.7-12.7); Neutrophils # 11.7 10*3/uL (1.4-7.4); Neutrophils % 64.3 % (38.7-73.9); Platelet Count 409 T/CUMM (130-400); Red Blood Count 2.87 MC/CUMM (3.8-5.5); Red Cell Distribution Width 17.7 % (9.3-17.3); White Blood Count 18.2 T/CUMM (4-12)
[2018-02-04 04:31] LABS: INR 3.7
[2018-02-04 04:37] LABS: PT Patient Result 39.3 SECS
[2018-02-04 04:42] LABS: Calcium 7.7 MG/DL (8.5-10.1); Osmolality,Calculated 277.4 MOS/KG (273-304); Potassium 3.9 MMOL/L (3.5-5.1)
[2018-02-04 04:48] LABS: Alanine Aminotransferase 39 U/L (13-56); Albumin 2.6 G/DL (3.4-5.0); Alkaline Phosphatase 133 U/L (45-117); Aspartate Amino Transferase 25 U/L (0-37); Bilirubin,Indirect 0.7 MG/DL (0.0-1.0); Blood Urea Nitrogen 22 MG/DL (7-18); Calcium 7.7 MG/DL (8.5-10.1); Glucose 241 MG/DL (74-106); Osmolality,Calculated 280.1 MOS/KG (273-304); Potassium 4.2 MMOL/L (3.5-5.1); Sodium 135 MMOL/L (136-145); Total Protein 5.3 G/DL (6.4-8.3)
[2018-02-04] MEDS: INSULIN REGULAR 100 UNIT/ML SUBCUT SCH ×4 (09:03→21:52)
[2018-02-04] MEDS: ROSUVASTATIN 20 MG TABLET PO SCH (09:04)
[2018-02-04] MEDS: FERROUS SULFATE 325 MG TABLET PO SCH (09:04)
[2018-02-04] MEDS: POLYETHYLENE GLYCOL POWDER 17 GM PACK PO SCH ×2 (09:04→09:08)
[2018-02-04] MEDS: FUROSEMIDE 40 MG TABLET PO SCH ×2 (09:04→18:22)
[2018-02-04] MEDS: oxyCODONE/ACETAMINOPHEN 5-325 MG TABLET PO PRN ×4 (09:04→23:55)
[2018-02-04] MEDS: ASPIRIN EC 81 MG TABLET PO SCH (09:04)
[2018-02-04] MEDS: PANTOPRAZOLE 40 MG TABLET PO SCH (09:05)
[2018-02-04] MEDS: DOCUSATE SODIUM 100 MG CAPSULE PO SCH (09:05)
[2018-02-04] MEDS: CHLORHEXIDINE 0.12% ORAL RINSE 60 ML BOTTLE SWISH/SPIT SCH ×2 (09:07→21:54)
[2018-02-04] MEDS: ZINC OXIDE PASTE 113 GM TUBE TOP SCH ×2 (09:08→21:59)
[2018-02-04] MEDS: MAGNESIUM HYDROXIDE SUSP 30 ML UDCUP PO PRN (09:10)
[2018-02-04] MEDS: AMIODARONE 200 MG TABLET PO SCH ×2 (12:43→21:54)
[2018-02-04] MEDS: AMIODARONE INJ 450 MG in DEXTROSE 5% 241 ML IV SCH (12:45)
[2018-02-04] MEDS ORDERED: TUBERCULIN SKIN TEST 0.1 ML SYRINGE INTRADERM ONE (14:03)
[2018-02-04] MEDS: ONDANSETRON 4 MG/2 ML VIAL IV PRN ×2 (15:45→21:53)
[2018-02-04] MEDS: INSULIN GLARGINE 100 UNIT/ML SUBCUT SCH (21:53)
[2018-02-05] MEDS: ZALEPLON 5 MG CAPSULE PO PRN ×2 (02:35→21:30)
[2018-02-05] MEDS: CLINDAMYCIN INJ 600 MG in PREMIX 1 EACH IV SCH ×3 (02:35→16:51)
[2018-02-05 04:36] LABS: Basophils # 0.1 10*3/uL (0.0-0.2); Basophils % 0.3 % (0.0-0.8); Eosinophils # 0.6 10*3/uL (0.0-0.87); Eosinophils % 3.1 % (0.00-10.9); Hemoglobin 8.8 GM/DL (12.0-16.0); Immature Granulocytes % 1.1 %; Lymphocytes # 2.4 10*3/uL (1.4-4.0); Lymphocytes % 12.7 % (21.3-54.2); Mean Corpuscular HGB Conc 29.3 GM/DL (32-36); Mean Corpuscular Hemoglobin 28 PG (27-34); Mean Corpuscular Volume 94.9 FL (87-102); Mean Platelet Volume 10.1 FL (9.6-12.0); Monocytes # 1.6 10*3/uL (0.11-0.8); Monocytes % 8.7 % (1.7-12.7); NRBC # 0.29 10*3/uL; Neutrophils # 13.8 10*3/uL (1.4-7.4); Neutrophils % 74.1 % (38.7-73.9); Platelet Count 437 T/CUMM (130-400); Red Blood Count 3.16 MC/CUMM (3.8-5.5); Red Cell Distribution Width 18.2 % (9.3-17.3); White Blood Count 18.7 T/CUMM (4-12)
[2018-02-05 05:03] LABS: Alanine Aminotransferase 38 U/L (13-56); Albumin 2.5 G/DL (3.4-5.0); Alkaline Phosphatase 137 U/L (45-117); Aspartate Amino Transferase 28 U/L (0-37); Bilirubin,Indirect 0.8 MG/DL (0.0-1.0); Blood Urea Nitrogen 23 MG/DL (7-18); Calcium 7.9 MG/DL (8.5-10.1); Glucose 290 MG/DL (74-106); Osmolality,Calculated 276.7 MOS/KG (273-304); Potassium 4.1 MMOL/L (3.5-5.1); Sodium 131 MMOL/L (136-145)
[2018-02-05 05:04] LABS: INR 2.7
[2018-02-05 05:28] LABS: PT Patient Result 29.2 SECS
[2018-02-05] MEDS: DOCUSATE SODIUM 100 MG CAPSULE PO SCH (08:28)
[2018-02-05] MEDS: ASPIRIN EC 81 MG TABLET PO SCH (08:28)
[2018-02-05] MEDS: ROSUVASTATIN 20 MG TABLET PO SCH (08:28)
[2018-02-05] MEDS: FUROSEMIDE 40 MG TABLET PO SCH (08:28)
[2018-02-05] MEDS: FERROUS SULFATE 325 MG TABLET PO SCH (08:29)
[2018-02-05] MEDS: POLYETHYLENE GLYCOL POWDER 17 GM PACK PO SCH (08:30)
[2018-02-05] MEDS: CHLORHEXIDINE 0.12% ORAL RINSE 60 ML BOTTLE SWISH/SPIT SCH ×2 (08:30→21:32)
[2018-02-05] MEDS: PANTOPRAZOLE 40 MG TABLET PO SCH (08:30)
[2018-02-05] MEDS: INSULIN REGULAR 100 UNIT/ML SUBCUT SCH ×4 (08:31→21:30)
[2018-02-05] MEDS: KETOROLAC 15 MG/1 ML VIAL IV PRN (08:32)
[2018-02-05] MEDS: AMIODARONE 200 MG TABLET PO SCH ×2 (08:37→21:31)
[2018-02-05] MEDS: MAGNESIUM HYDROXIDE SUSP 30 ML UDCUP PO PRN (08:38)
[2018-02-05] MEDS ORDERED: FUROSEMIDE 40 MG TABLET PO SCH (09:00)
[2018-02-05] MEDS ORDERED: GABAPENTIN 100 MG CAPSULE PO SCH (09:15)
[2018-02-05] MEDS ORDERED: IBUPROFEN 400 MG TABLET PO SCH (09:30)
[2018-02-05] MEDS: ZINC OXIDE PASTE 113 GM TUBE TOP SCH ×2 (10:55→21:32)
[2018-02-05] MEDS: FUROSEMIDE 40 MG/4 ML VIAL IV SCH ×2 (10:55→16:47)
[2018-02-05] MEDS ORDERED: WARFARIN 1 MG TABLET PO SCH (18:00)
[2018-02-05] MEDS ORDERED: WARFARIN 2 MG TABLET PO SCH (18:00)
[2018-02-05] MEDS: INSULIN GLARGINE 100 UNIT/ML SUBCUT SCH (21:29)
[2018-02-05] MEDS: oxyCODONE/ACETAMINOPHEN 5-325 MG TABLET PO PRN (21:30)
[2018-02-05] MEDS: GABAPENTIN 300 MG CAPSULE PO SCH (21:31)
[2018-02-06] MEDS: CLINDAMYCIN INJ 600 MG in PREMIX 1 EACH IV SCH ×2 (02:00→09:21)
[2018-02-06 05:05] LABS: Basophils # 0.1 10*3/uL (0.0-0.2); Basophils % 0.3 % (0.0-0.8); Eosinophils # 0.6 10*3/uL (0.0-0.87); Eosinophils % 3.2 % (0.00-10.9); Hematocrit 29.6 VOL% (35.7-47.0); Immature Granulocytes % 0.9 %; Immature Granulocytes Absolute 0.18 #; Lymphocytes # 4.3 10*3/uL (1.4-4.0); Lymphocytes % 22.2 % (21.3-54.2); Mean Corpuscular HGB Conc 30.4 GM/DL (32-36); Mean Corpuscular Hemoglobin 29 PG (27-34); Mean Corpuscular Volume 94.3 FL (87-102); Mean Platelet Volume 9.7 FL (9.6-12.0); Monocytes # 1.6 10*3/uL (0.11-0.8); Monocytes % 8.5 % (1.7-12.7); NRBC # 0.24 10*3/uL; Neutrophils # 12.5 10*3/uL (1.4-7.4); Neutrophils % 64.9 % (38.7-73.9); Platelet Count 453 T/CUMM (130-400); Red Blood Count 3.14 MC/CUMM (3.8-5.5); Red Cell Distribution Width 18.8 % (9.3-17.3); White Blood Count 19.2 T/CUMM (4-12)
[2018-02-06 05:16] LABS: Calcium 8.2 MG/DL (8.5-10.1); Osmolality,Calculated 278.2 MOS/KG (273-304); Potassium 3.7 MMOL/L (3.5-5.1)
[2018-02-06 05:21] LABS: INR 1.8; PT Patient Result 19.4 SECS
[2018-02-06] MEDS: oxyCODONE/ACETAMINOPHEN 5-325 MG TABLET PO PRN ×2 (05:44→14:52)
[2018-02-06] MEDS ORDERED: WARFARIN 5 MG TABLET PO SCH (08:17)
[2018-02-06] MEDS ORDERED: AMIODARONE 200 MG TABLET PO SCH (09:00)
[2018-02-06] MEDS: PANTOPRAZOLE 40 MG TABLET PO SCH (09:19)
[2018-02-06] MEDS: AMIODARONE 200 MG TABLET PO SCH ×2 (09:19→21:22)
[2018-02-06] MEDS: FERROUS SULFATE 325 MG TABLET PO SCH (09:20)
[2018-02-06] MEDS: DOCUSATE SODIUM 100 MG CAPSULE PO SCH (09:20)
[2018-02-06] MEDS: ASPIRIN EC 81 MG TABLET PO SCH (09:20)
[2018-02-06] MEDS: FUROSEMIDE 40 MG/4 ML VIAL IV SCH (09:20)
[2018-02-06] MEDS: ROSUVASTATIN 20 MG TABLET PO SCH (09:20)
[2018-02-06] MEDS: INSULIN REGULAR 100 UNIT/ML SUBCUT SCH ×4 (09:20→21:21)
[2018-02-06] MEDS: POTASSIUM CHLORIDE 20 MEQ TABLET PO PRN ×2 (09:20→14:58)
[2018-02-06] MEDS: CHLORHEXIDINE 0.12% ORAL RINSE 60 ML BOTTLE SWISH/SPIT SCH ×2 (09:21→21:22)
[2018-02-06] MEDS: POLYETHYLENE GLYCOL POWDER 17 GM PACK PO SCH (09:21)
[2018-02-06] MEDS: ZINC OXIDE PASTE 113 GM TUBE TOP SCH ×2 (09:21→21:22)
[2018-02-06] MEDS ORDERED: FUROSEMIDE 80 MG TABLET PO ONE (16:00)
[2018-02-06] MEDS: HYDROmorphone 2 MG/1 ML VIAL IV PRN (16:24)
[2018-02-06 16:42] LABS: ABG Base Excess 3.4 MMOL/L (-2.5-2.5); ABG HCO3 27.4 MMOL/L (20-26); ABG Oxygen Saturation 94.3 % (95-100); ABG PCO2 37.8 MM HG (35-48); ABG PH 7.465 (7.35-7.45); ABG PO2 68.8 MM HG (80-95); ABG TCO2 25.1 MMOL/L (23-27)
[2018-02-06] MEDS: WARFARIN 5 MG TABLET PO SCH (18:13)
[2018-02-06] MEDS: INSULIN GLARGINE 100 UNIT/ML SUBCUT SCH (21:21)
[2018-02-06] MEDS: ZALEPLON 5 MG CAPSULE PO PRN (21:22)
[2018-02-06] MEDS: GABAPENTIN 300 MG CAPSULE PO SCH (21:22)
[2018-02-07] MEDS: CLINDAMYCIN INJ 600 MG in PREMIX 1 EACH IV SCH ×3 (00:35→12:45)
[2018-02-07 04:50] LABS: Basophils # 0.1 10*3/uL (0.0-0.2); Basophils % 0.2 % (0.0-0.8); Eosinophils # 0.3 10*3/uL (0.0-0.87); Hematocrit 28.1 VOL% (35.7-47.0); Hemoglobin 8.6 GM/DL (12.0-16.0); Immature Granulocytes % 1.2 %; Lymphocytes % 11.7 % (21.3-54.2); Mean Corpuscular HGB Conc 30.6 GM/DL (32-36); Mean Corpuscular Hemoglobin 29 PG (27-34); Mean Platelet Volume 10.5 FL (9.6-12.0); Monocytes # 2.2 10*3/uL (0.11-0.8); Monocytes % 8.5 % (1.7-12.7); NRBC # 0.24 10*3/uL; Neutrophils # 19.8 10*3/uL (1.4-7.4); Neutrophils % 77.4 % (38.7-73.9); Platelet Count 415 T/CUMM (130-400); Red Blood Count 2.99 MC/CUMM (3.8-5.5); Red Cell Distribution Width 18.5 % (9.3-17.3); White Blood Count 25.6 T/CUMM (4-12)
[2018-02-07 05:19] LABS: Calcium 7.7 MG/DL (8.5-10.1); Osmolality,Calculated 272.8 MOS/KG (273-304); Potassium 3.5 MMOL/L (3.5-5.1)
[2018-02-07 07:14] LABS: Anisocytosis 2+; Lymphocytes 15 % (20-55); Macrocytosis 2+; Ovalocytes 1+; Platelet Estimate Increased; Polychromasia Few; Segmented Neutrophils 78 % (50-85); Total Cells Counted 100
[2018-02-07] MEDS: DOCUSATE SODIUM 100 MG CAPSULE PO SCH (09:05)
[2018-02-07] MEDS: ROSUVASTATIN 20 MG TABLET PO SCH (09:05)
[2018-02-07] MEDS: ASPIRIN EC 81 MG TABLET PO SCH (09:05)
[2018-02-07] MEDS: POTASSIUM CHLORIDE 20 MEQ TABLET PO PRN (09:06)
[2018-02-07] MEDS: PANTOPRAZOLE 40 MG TABLET PO SCH (09:06)
[2018-02-07] MEDS: FERROUS SULFATE 325 MG TABLET PO SCH (09:06)
[2018-02-07] MEDS: CHLORHEXIDINE 0.12% ORAL RINSE 60 ML BOTTLE SWISH/SPIT SCH ×2 (09:06→21:14)
[2018-02-07] MEDS: ZINC OXIDE PASTE 113 GM TUBE TOP SCH ×2 (09:06→21:13)
[2018-02-07] MEDS: POLYETHYLENE GLYCOL POWDER 17 GM PACK PO SCH (09:06)
[2018-02-07] MEDS: AMIODARONE 200 MG TABLET PO SCH ×2 (09:06→21:13)
[2018-02-07] MEDS: INSULIN REGULAR 100 UNIT/ML SUBCUT SCH ×4 (09:06→21:14)
[2018-02-07] MEDS: oxyCODONE/ACETAMINOPHEN 5-325 MG TABLET PO PRN ×2 (09:10→21:13)
[2018-02-07 11:22] LABS: INR 1.6; PT Patient Result 17.4 SECS
[2018-02-07] MEDS ORDERED: ENOXAPARIN 40 MG/0.4 ML SYRINGE SUBCUT SCH (12:00)
[2018-02-07] MEDS: HYDROmorphone 2 MG/1 ML VIAL IV PRN (12:06)
[2018-02-07] MEDS: FUROSEMIDE 40 MG/4 ML VIAL IV SCH (12:53)
[2018-02-07] MEDS: SODIUM CHLOR 0.9% KCL 20 MEQ 20 MEQ/1,000 ML BAG IV SCH (12:54)
[2018-02-07] MEDS: VANCOMYCIN INJ 1,500 MG in SODIUM CHLORIDE 0.9% 500 ML IV SCH (14:15)
[2018-02-07] MEDS ORDERED: HEPARIN 5,000 UNIT/1 ML VIAL IV ONE (15:03)
[2018-02-07] MEDS: HEPARIN DRIP 25,000 UNITS/500 ML PREMIX IV SCH (15:12)
[2018-02-07] MEDS: WARFARIN 5 MG TABLET PO SCH (17:04)
[2018-02-07] MEDS ORDERED: DEXTROSE 50% 25 GM/50 ML VIAL IV PRN (20:48)
[2018-02-07] MEDS ORDERED: GLUCAGON 1 MG VIAL IM PRN (20:48)
[2018-02-07] MEDS: GABAPENTIN 300 MG CAPSULE PO SCH (21:12)
[2018-02-07] MEDS: INSULIN GLARGINE 100 UNIT/ML SUBCUT SCH (21:14)
[2018-02-08] MEDS: SODIUM CHLOR 0.9% KCL 20 MEQ 20 MEQ/1,000 ML BAG IV SCH (04:25)
[2018-02-08 05:53] LABS: Basophils % 0.2 % (0.0-0.8); Eosinophils # 0.8 10*3/uL (0.0-0.87); Eosinophils % 4.7 % (0.00-10.9); Hemoglobin 8.3 GM/DL (12.0-16.0); Immature Granulocytes % 0.7 %; Immature Granulocytes Absolute 0.12 #; Lymphocytes # 2.5 10*3/uL (1.4-4.0); Lymphocytes % 15.2 % (21.3-54.2); Mean Corpuscular HGB Conc 29.6 GM/DL (32-36); Mean Corpuscular Hemoglobin 28 PG (27-34); Mean Corpuscular Volume 95.2 FL (87-102); Mean Platelet Volume 9.9 FL (9.6-12.0); Monocytes # 1.2 10*3/uL (0.11-0.8); Monocytes % 7.2 % (1.7-12.7); NRBC # 0.16 10*3/uL; Platelet Count 432 T/CUMM (130-400); Red Blood Count 2.94 MC/CUMM (3.8-5.5); Red Cell Distribution Width 18.3 % (9.3-17.3); White Blood Count 16.6 T/CUMM (4-12)
[2018-02-08 06:00] LABS: INR 1.8; PT Patient Result 19.4 SECS
[2018-02-08 06:13] LABS: Calcium 8.2 MG/DL (8.5-10.1); Osmolality,Calculated 272.5 MOS/KG (273-304); Potassium 3.7 MMOL/L (3.5-5.1)
[2018-02-08 06:15] LABS: Albumin 2.1 G/DL (3.4-5.0); Calcium 8.2 MG/DL (8.5-10.1); Osmolality,Calculated 272.5 MOS/KG (273-304); Potassium 3.6 MMOL/L (3.5-5.1); Total Protein 6.2 G/DL (6.4-8.3)
[2018-02-08] MEDS: oxyCODONE/ACETAMINOPHEN 5-325 MG TABLET PO PRN ×2 (06:16→20:38)
[2018-02-08 06:20] LABS: Troponin I 0.679 NG/ML (0.00-0.045)
[2018-02-08] MEDS: FUROSEMIDE 40 MG/4 ML VIAL IV SCH (09:29)
[2018-02-08] MEDS: INSULIN REGULAR 100 UNIT/ML SUBCUT SCH ×4 (09:45→20:39)
[2018-02-08] MEDS: ASPIRIN EC 81 MG TABLET PO SCH (09:46)
[2018-02-08] MEDS: PANTOPRAZOLE 40 MG TABLET PO SCH (09:46)
[2018-02-08] MEDS: AMIODARONE 200 MG TABLET PO SCH ×2 (09:46→20:39)
[2018-02-08] MEDS: FERROUS SULFATE 325 MG TABLET PO SCH (09:46)
[2018-02-08] MEDS: DOCUSATE SODIUM 100 MG CAPSULE PO SCH (09:46)
[2018-02-08] MEDS: ROSUVASTATIN 20 MG TABLET PO SCH (09:46)
[2018-02-08] MEDS: POLYETHYLENE GLYCOL POWDER 17 GM PACK PO SCH (09:47)
[2018-02-08] MEDS: CHLORHEXIDINE 0.12% ORAL RINSE 60 ML BOTTLE SWISH/SPIT SCH ×2 (09:47→20:50)
[2018-02-08] MEDS: ZINC OXIDE PASTE 113 GM TUBE TOP SCH ×2 (09:48→20:40)
[2018-02-08] MEDS: MAGNESIUM HYDROXIDE SUSP 30 ML UDCUP PO PRN (10:26)
[2018-02-08] MEDS: VANCOMYCIN INJ 1,500 MG in SODIUM CHLORIDE 0.9% 500 ML IV SCH ×2 (10:33→10:43)
[2018-02-08] MEDS: HEPARIN DRIP 25,000 UNITS/500 ML PREMIX IV SCH (12:00)
[2018-02-08] MEDS ORDERED: HYDROmorphone 2 MG/1 ML VIAL IV ONE (15:53)
[2018-02-08] MEDS: GABAPENTIN 300 MG CAPSULE PO SCH ×3 (16:44→20:39)
[2018-02-08] MEDS: WARFARIN 5 MG TABLET PO SCH (18:00)
[2018-02-08] MEDS: PIPERACILLIN/TAZOBACTAM 3,375 MG in SODIUM CHLORIDE 0.9% 100 ML IV SCH (18:07)
[2018-02-08] MEDS: INSULIN GLARGINE 100 UNIT/ML SUBCUT SCH (20:40)
[2018-02-08 20:45] LABS: INR 1.9
[2018-02-08 20:46] LABS: Partial Thromboplastin Time 65.7 SECS (0-40)
[2018-02-09] MEDS: PIPERACILLIN/TAZOBACTAM 3,375 MG in SODIUM CHLORIDE 0.9% 100 ML IV SCH ×3 (00:03→17:21)
[2018-02-09 02:10] LABS: Basophils % 0.2 % (0.0-0.8); Eosinophils # 0.6 10*3/uL (0.0-0.87); Eosinophils % 4.7 % (0.00-10.9); Hematocrit 30.2 VOL% (35.7-47.0); Hemoglobin 8.9 GM/DL (12.0-16.0); Immature Granulocytes % 0.5 %; Immature Granulocytes Absolute 0.07 #; Lymphocytes # 2.3 10*3/uL (1.4-4.0); Lymphocytes % 16.8 % (21.3-54.2); Mean Corpuscular HGB Conc 29.5 GM/DL (32-36); Mean Corpuscular Hemoglobin 28 PG (27-34); Mean Platelet Volume 9.8 FL (9.6-12.0); Monocytes # 0.9 10*3/uL (0.11-0.8); Monocytes % 6.4 % (1.7-12.7); NRBC # 0.15 10*3/uL; Neutrophils # 9.7 10*3/uL (1.4-7.4); Neutrophils % 71.4 % (38.7-73.9); Platelet Count 435 T/CUMM (130-400); Red Blood Count 3.18 MC/CUMM (3.8-5.5); White Blood Count 13.5 T/CUMM (4-12)
[2018-02-09 02:22] LABS: INR 1.9; PT Patient Result 20.6 SECS
[2018-02-09 02:27] LABS: Calcium 8.1 MG/DL (8.5-10.1); Osmolality,Calculated 274.7 MOS/KG (273-304); Potassium 3.8 MMOL/L (3.5-5.1)
[2018-02-09 02:28] LABS: Calcium 8.3 MG/DL (8.5-10.1); Osmolality,Calculated 273.7 MOS/KG (273-304)
[2018-02-09] MEDS: VANCOMYCIN INJ 1,500 MG in SODIUM CHLORIDE 0.9% 500 ML IV SCH ×2 (03:00→21:20)
[2018-02-09] MEDS: HEPARIN DRIP 25,000 UNITS/500 ML PREMIX IV SCH ×2 (07:37→13:49)
[2018-02-09] MEDS: INSULIN REGULAR 100 UNIT/ML SUBCUT SCH ×4 (09:54→21:22)
[2018-02-09] MEDS: FERROUS SULFATE 325 MG TABLET PO SCH (09:55)
[2018-02-09] MEDS: GABAPENTIN 300 MG CAPSULE PO SCH ×3 (09:55→21:21)
[2018-02-09] MEDS: ASPIRIN EC 81 MG TABLET PO SCH (09:55)
[2018-02-09] MEDS: AMIODARONE 200 MG TABLET PO SCH ×2 (09:55→21:21)
[2018-02-09] MEDS: PANTOPRAZOLE 40 MG TABLET PO SCH (09:55)
[2018-02-09] MEDS: DOCUSATE SODIUM 100 MG CAPSULE PO SCH (09:55)
[2018-02-09] MEDS: ROSUVASTATIN 20 MG TABLET PO SCH (09:55)
[2018-02-09] MEDS: POLYETHYLENE GLYCOL POWDER 17 GM PACK PO SCH (10:04)
[2018-02-09] MEDS: ZINC OXIDE PASTE 113 GM TUBE TOP SCH ×2 (10:04→21:23)
[2018-02-09] MEDS: CHLORHEXIDINE 0.12% ORAL RINSE 60 ML BOTTLE SWISH/SPIT SCH ×2 (10:06→21:23)
[2018-02-09] MEDS: FUROSEMIDE 80 MG TABLET PO SCH (10:13)
[2018-02-09] MEDS: oxyCODONE/ACETAMINOPHEN 5-325 MG TABLET PO PRN ×2 (10:45→21:32)
[2018-02-09] MEDS: WARFARIN 5 MG TABLET PO SCH (17:21)
[2018-02-09] MEDS: INSULIN GLARGINE 100 UNIT/ML SUBCUT SCH (21:21)
[2018-02-09] MEDS: ZALEPLON 5 MG CAPSULE PO PRN (23:23)
[2018-02-10] MEDS: PIPERACILLIN/TAZOBACTAM 3,375 MG in SODIUM CHLORIDE 0.9% 100 ML IV SCH ×3 (04:29→21:31)
[2018-02-10 04:52] LABS: Basophils % 0.4 % (0.0-0.8); Eosinophils # 0.8 10*3/uL (0.0-0.87); Eosinophils % 7.5 % (0.00-10.9); Hematocrit 29.8 VOL% (35.7-47.0); Hemoglobin 8.7 GM/DL (12.0-16.0); Immature Granulocytes % 0.6 %; Immature Granulocytes Absolute 0.06 #; Lymphocytes # 2.4 10*3/uL (1.4-4.0); Lymphocytes % 21.6 % (21.3-54.2); Mean Corpuscular HGB Conc 29.2 GM/DL (32-36); Mean Corpuscular Hemoglobin 28 PG (27-34); Mean Corpuscular Volume 95.5 FL (87-102); Mean Platelet Volume 10.3 FL (9.6-12.0); Monocytes # 0.8 10*3/uL (0.11-0.8); Monocytes % 7.1 % (1.7-12.7); NRBC # 0.19 10*3/uL; Neutrophils # 6.8 10*3/uL (1.4-7.4); Neutrophils % 62.8 % (38.7-73.9); Platelet Count 422 T/CUMM (130-400); Red Blood Count 3.12 MC/CUMM (3.8-5.5); Red Cell Distribution Width 17.8 % (9.3-17.3); White Blood Count 10.9 T/CUMM (4-12)
[2018-02-10 05:10] LABS: PT Patient Result 21.9 SECS
[2018-02-10 05:18] LABS: Calcium 8.4 MG/DL (8.5-10.1); Osmolality,Calculated 276.2 MOS/KG (273-304); Potassium 3.9 MMOL/L (3.5-5.1)
[2018-02-10] MEDS: CHLORHEXIDINE 0.12% ORAL RINSE 60 ML BOTTLE SWISH/SPIT SCH ×2 (09:16→21:35)
[2018-02-10] MEDS: HYDROmorphone 2 MG/1 ML VIAL IV PRN (09:19)
[2018-02-10] MEDS: ROSUVASTATIN 20 MG TABLET PO SCH (09:26)
[2018-02-10] MEDS: AMIODARONE 200 MG TABLET PO SCH ×2 (09:27→21:33)
[2018-02-10] MEDS: FUROSEMIDE 80 MG TABLET PO SCH (09:27)
[2018-02-10] MEDS: GABAPENTIN 300 MG CAPSULE PO SCH (09:28)
[2018-02-10] MEDS: DOCUSATE SODIUM 100 MG CAPSULE PO SCH (09:28)
[2018-02-10] MEDS: FERROUS SULFATE 325 MG TABLET PO SCH (09:28)
[2018-02-10] MEDS: ASPIRIN EC 81 MG TABLET PO SCH (09:29)
[2018-02-10] MEDS: PANTOPRAZOLE 40 MG TABLET PO SCH (09:29)
[2018-02-10] MEDS: POLYETHYLENE GLYCOL POWDER 17 GM PACK PO SCH (09:30)
[2018-02-10] MEDS: MAGNESIUM HYDROXIDE SUSP 30 ML UDCUP PO PRN (09:40)
[2018-02-10] MEDS: INSULIN REGULAR 100 UNIT/ML SUBCUT SCH ×4 (09:50→21:33)
[2018-02-10] MEDS ORDERED: HYDROmorphone 2 MG/1 ML VIAL IV ONE (10:42)
[2018-02-10] MEDS: GABAPENTIN 400 MG CAPSULE PO SCH ×3 (11:16→21:35)
[2018-02-10] MEDS: ZINC OXIDE PASTE 113 GM TUBE TOP SCH ×2 (13:18→21:35)
[2018-02-10] MEDS: WARFARIN 5 MG TABLET PO SCH (17:29)
[2018-02-10] MEDS: ZALEPLON 5 MG CAPSULE PO PRN (21:32)
[2018-02-10] MEDS: INSULIN GLARGINE 100 UNIT/ML SUBCUT SCH (21:33)
[2018-02-10] MEDS: oxyCODONE/ACETAMINOPHEN 5-325 MG TABLET PO PRN (21:34)
[2018-02-11] MEDS: PIPERACILLIN/TAZOBACTAM 3,375 MG in SODIUM CHLORIDE 0.9% 100 ML IV SCH ×3 (05:00→21:14)
[2018-02-11] MEDS: SODIUM HYPOCHLORITE 0.25% IRRIG 473 ML BOTTLE TOP SCH (09:15)
[2018-02-11] MEDS ORDERED: FUROSEMIDE 100 MG/10 ML VIAL ONE (09:21)
[2018-02-11] MEDS: FUROSEMIDE 40 MG/4 ML VIAL IV SCH ×2 (09:36→18:10)
[2018-02-11] MEDS: FERROUS SULFATE 325 MG TABLET PO SCH (09:39)
[2018-02-11] MEDS: ASPIRIN EC 81 MG TABLET PO SCH (09:39)
[2018-02-11] MEDS: PANTOPRAZOLE 40 MG TABLET PO SCH (09:39)
[2018-02-11] MEDS: DOCUSATE SODIUM 100 MG CAPSULE PO SCH (09:39)
[2018-02-11] MEDS: GABAPENTIN 400 MG CAPSULE PO SCH ×3 (09:39→21:16)
[2018-02-11] MEDS: ROSUVASTATIN 20 MG TABLET PO SCH (09:40)
[2018-02-11] MEDS: INSULIN REGULAR 100 UNIT/ML SUBCUT SCH ×4 (09:43→21:17)
[2018-02-11] MEDS: POLYETHYLENE GLYCOL POWDER 17 GM PACK PO SCH (09:43)
[2018-02-11] MEDS: CHLORHEXIDINE 0.12% ORAL RINSE 60 ML BOTTLE SWISH/SPIT SCH ×2 (09:46→21:18)
[2018-02-11] MEDS: AMIODARONE 200 MG TABLET PO SCH ×2 (09:46→21:16)
[2018-02-11 09:58] LABS: Basophils % 0.4 % (0.0-0.8); Eosinophils # 0.9 10*3/uL (0.0-0.87); Eosinophils % 8.5 % (0.00-10.9); Hematocrit 29.4 VOL% (35.7-47.0); Hemoglobin 8.5 GM/DL (12.0-16.0); Immature Granulocytes % 0.8 %; Immature Granulocytes Absolute 0.09 #; Lymphocytes # 2.1 10*3/uL (1.4-4.0); Lymphocytes % 19.4 % (21.3-54.2); Mean Corpuscular HGB Conc 28.9 GM/DL (32-36); Mean Corpuscular Hemoglobin 28 PG (27-34); Mean Corpuscular Volume 96.7 FL (87-102); Mean Platelet Volume 10.1 FL (9.6-12.0); Monocytes # 0.8 10*3/uL (0.11-0.8); Monocytes % 7.8 % (1.7-12.7); Neutrophils # 6.8 10*3/uL (1.4-7.4); Neutrophils % 63.1 % (38.7-73.9); Platelet Count 410 T/CUMM (130-400); Red Blood Count 3.04 MC/CUMM (3.8-5.5); Red Cell Distribution Width 18.1 % (9.3-17.3); White Blood Count 10.7 T/CUMM (4-12)
[2018-02-11 10:04] LABS: INR 2.6
[2018-02-11 10:12] LABS: PT Patient Result 28.1 SECS
[2018-02-11 10:16] LABS: Anisocytosis 1+; Hypochromasia 1+; Macrocytosis 1+; Polychromasia Slight
[2018-02-11 10:17] LABS: Platelet Estimate Increased
[2018-02-11 10:36] LABS: Calcium 8.4 MG/DL (8.5-10.1); Osmolality,Calculated 278.4 MOS/KG (273-304)
[2018-02-11] MEDS: ZINC OXIDE PASTE 113 GM TUBE TOP SCH ×2 (12:00→21:16)
[2018-02-11] MEDS: oxyCODONE/ACETAMINOPHEN 5-325 MG TABLET PO PRN ×2 (14:49→21:15)
[2018-02-11] MEDS: WARFARIN 5 MG TABLET PO SCH (18:15)
[2018-02-11] MEDS: ZALEPLON 5 MG CAPSULE PO PRN (21:15)
[2018-02-11] MEDS: INSULIN GLARGINE 100 UNIT/ML SUBCUT SCH (21:16)
[2018-02-12] MEDS: PIPERACILLIN/TAZOBACTAM 3,375 MG in SODIUM CHLORIDE 0.9% 100 ML IV SCH ×3 (04:45→21:48)
[2018-02-12 05:36] LABS: Basophils # 0.1 10*3/uL (0.0-0.2); Basophils % 0.5 % (0.0-0.8); Eosinophils % 9.3 % (0.00-10.9); Hematocrit 31.3 VOL% (35.7-47.0); Hemoglobin 9.1 GM/DL (12.0-16.0); Immature Granulocytes % 0.7 %; Immature Granulocytes Absolute 0.08 #; Lymphocytes # 3.1 10*3/uL (1.4-4.0); Lymphocytes % 28.4 % (21.3-54.2); Mean Corpuscular HGB Conc 29.1 GM/DL (32-36); Mean Corpuscular Hemoglobin 28 PG (27-34); Mean Corpuscular Volume 96.3 FL (87-102); Monocytes % 8.8 % (1.7-12.7); NRBC # 0.18 10*3/uL; Neutrophils # 5.8 10*3/uL (1.4-7.4); Neutrophils % 52.3 % (38.7-73.9); Platelet Count 428 T/CUMM (130-400); Red Blood Count 3.25 MC/CUMM (3.8-5.5); Red Cell Distribution Width 18.2 % (9.3-17.3)
[2018-02-12 05:52] LABS: INR 2.4
[2018-02-12 06:02] LABS: Calcium 8.4 MG/DL (8.5-10.1); Osmolality,Calculated 281.4 MOS/KG (273-304); Potassium 3.1 MMOL/L (3.5-5.1)
[2018-02-12 06:05] LABS: Albumin 2.3 G/DL (3.4-5.0); Bilirubin,Total 1.5 MG/DL (0.2-1.0); Calcium 8.7 MG/DL (8.5-10.1); Osmolality,Calculated 277.7 MOS/KG (273-304); Potassium 3.1 MMOL/L (3.5-5.1); Total Protein 6.8 G/DL (6.4-8.3)
[2018-02-12 06:18] LABS: PT Patient Result 26.2 SECS
[2018-02-12] MEDS: POTASSIUM CHLORIDE 20 MEQ TABLET PO PRN ×3 (06:24→21:42)
[2018-02-12] MEDS: FUROSEMIDE 80 MG TABLET PO SCH (07:32)
[2018-02-12] MEDS: GABAPENTIN 400 MG CAPSULE PO SCH ×3 (08:12→21:42)
[2018-02-12] MEDS: POLYETHYLENE GLYCOL POWDER 17 GM PACK PO SCH (08:12)
[2018-02-12] MEDS: PANTOPRAZOLE 40 MG TABLET PO SCH (08:12)
[2018-02-12] MEDS: ROSUVASTATIN 20 MG TABLET PO SCH (08:12)
[2018-02-12] MEDS: ASPIRIN EC 81 MG TABLET PO SCH (08:13)
[2018-02-12] MEDS: FERROUS SULFATE 325 MG TABLET PO SCH (08:13)
[2018-02-12] MEDS: DOCUSATE SODIUM 100 MG CAPSULE PO SCH (08:13)
[2018-02-12] MEDS: FUROSEMIDE 40 MG/4 ML VIAL IV SCH ×2 (08:14→16:15)
[2018-02-12] MEDS: INSULIN REGULAR 100 UNIT/ML SUBCUT SCH ×4 (08:15→21:46)
[2018-02-12] MEDS: SODIUM HYPOCHLORITE 0.25% IRRIG 473 ML BOTTLE TOP SCH (08:25)
[2018-02-12] MEDS: ZINC OXIDE PASTE 113 GM TUBE TOP SCH (08:25)
[2018-02-12] MEDS: AMIODARONE 200 MG TABLET PO SCH ×2 (09:10→21:43)
[2018-02-12] MEDS: CHLORHEXIDINE 0.12% ORAL RINSE 60 ML BOTTLE SWISH/SPIT SCH ×2 (10:00→21:50)
[2018-02-12] MEDS: VANCOMYCIN INJ 1,500 MG in SODIUM CHLORIDE 0.9% 500 ML IV SCH (13:48)
[2018-02-12] MEDS: HEPARIN DRIP 25,000 UNITS/500 ML PREMIX IV SCH (13:49)
[2018-02-12] MEDS: WARFARIN 2 MG TABLET PO SCH (17:11)
[2018-02-12] MEDS: WARFARIN 5 MG TABLET PO SCH (17:12)
[2018-02-12] MEDS: oxyCODONE/ACETAMINOPHEN 5-325 MG TABLET PO PRN (21:42)
[2018-02-12] MEDS: ZALEPLON 5 MG CAPSULE PO PRN (21:43)
[2018-02-12] MEDS: INSULIN GLARGINE 100 UNIT/ML SUBCUT SCH (21:47)
[2018-02-13] MEDS: ZINC OXIDE PASTE 113 GM TUBE TOP SCH ×3 (02:05→21:00)
[2018-02-13] MEDS: PIPERACILLIN/TAZOBACTAM 3,375 MG in SODIUM CHLORIDE 0.9% 100 ML IV SCH ×3 (06:00→21:42)
[2018-02-13 06:34] LABS: Calcium 8.1 MG/DL (8.5-10.1); Osmolality,Calculated 285.5 MOS/KG (273-304); Potassium 3.3 MMOL/L (3.5-5.1)
[2018-02-13 06:39] LABS: Basophils # 0.1 10*3/uL (0.0-0.2); Basophils % 0.5 % (0.0-0.8); Eosinophils % 9.9 % (0.00-10.9); Hematocrit 28.8 VOL% (35.7-47.0); Immature Granulocytes % 0.6 %; Immature Granulocytes Absolute 0.06 #; Lymphocytes # 2.9 10*3/uL (1.4-4.0); Lymphocytes % 27.9 % (21.3-54.2); Mean Corpuscular HGB Conc 29.2 GM/DL (32-36); Mean Corpuscular Hemoglobin 28 PG (27-34); Mean Corpuscular Volume 95.7 FL (87-102); Mean Platelet Volume 10.3 FL (9.6-12.0); Monocytes # 1.1 10*3/uL (0.11-0.8); Monocytes % 10.2 % (1.7-12.7); NRBC # 0.11 10*3/uL; Neutrophils # 5.3 10*3/uL (1.4-7.4); Neutrophils % 50.9 % (38.7-73.9); Platelet Count 456 T/CUMM (130-400); Red Blood Count 3.01 MC/CUMM (3.8-5.5); Red Cell Distribution Width 17.9 % (9.3-17.3); White Blood Count 10.5 T/CUMM (4-12)
[2018-02-13 06:41] LABS: Hemoglobin 8.4 GM/DL (12.0-16.0)
[2018-02-13 08:22] LABS: INR 2.5
[2018-02-13 08:32] LABS: PT Patient Result 26.5 SECS
[2018-02-13] MEDS: INSULIN REGULAR 100 UNIT/ML SUBCUT SCH ×4 (08:54→21:35)
[2018-02-13] MEDS: FUROSEMIDE 40 MG/4 ML VIAL IV SCH ×2 (08:55→15:51)
[2018-02-13] MEDS: ROSUVASTATIN 20 MG TABLET PO SCH (08:55)
[2018-02-13] MEDS: GABAPENTIN 400 MG CAPSULE PO SCH ×3 (08:55→21:37)
[2018-02-13] MEDS: ASPIRIN EC 81 MG TABLET PO SCH (08:56)
[2018-02-13] MEDS: FERROUS SULFATE 325 MG TABLET PO SCH (08:56)
[2018-02-13] MEDS: AMIODARONE 200 MG TABLET PO SCH ×2 (08:56→21:38)
[2018-02-13] MEDS: PANTOPRAZOLE 40 MG TABLET PO SCH (08:56)
[2018-02-13] MEDS: DOCUSATE SODIUM 100 MG CAPSULE PO SCH (08:56)
[2018-02-13] MEDS: POLYETHYLENE GLYCOL POWDER 17 GM PACK PO SCH (08:57)
[2018-02-13] MEDS: SODIUM HYPOCHLORITE 0.25% IRRIG 473 ML BOTTLE TOP SCH (08:57)
[2018-02-13] MEDS: CHLORHEXIDINE 0.12% ORAL RINSE 60 ML BOTTLE SWISH/SPIT SCH ×2 (09:01→21:49)
[2018-02-13] MEDS ORDERED: POTASSIUM CHLORIDE 20 MEQ TABLET PO ONE (11:47)
[2018-02-13] MEDS: POTASSIUM CHLORIDE 20 MEQ TABLET PO PRN ×2 (14:21→21:38)
[2018-02-13] MEDS: oxyCODONE/ACETAMINOPHEN 5-325 MG TABLET PO PRN ×2 (15:51→21:38)
[2018-02-13] MEDS: WARFARIN 2 MG TABLET PO SCH (17:37)
[2018-02-13] MEDS: WARFARIN 5 MG TABLET PO SCH (17:37)
[2018-02-13] MEDS: INSULIN GLARGINE 100 UNIT/ML SUBCUT SCH (21:36)
[2018-02-13] MEDS: ZALEPLON 5 MG CAPSULE PO PRN (21:37)
[2018-02-14] MEDS: POTASSIUM CHLORIDE 20 MEQ TABLET PO PRN (00:05)
[2018-02-14] MEDS: PIPERACILLIN/TAZOBACTAM 3,375 MG in SODIUM CHLORIDE 0.9% 100 ML IV SCH ×3 (04:20→21:23)
[2018-02-14 04:23] LABS: INR 3.5
[2018-02-14 04:27] LABS: Basophils # 0.1 10*3/uL (0.0-0.2); Basophils % 0.8 % (0.0-0.8); Eosinophils # 1.4 10*3/uL (0.0-0.87); Eosinophils % 12.8 % (0.00-10.9); Hemoglobin 9.4 GM/DL (12.0-16.0); Immature Granulocytes % 0.5 %; Immature Granulocytes Absolute 0.05 #; Lymphocytes % 28.4 % (21.3-54.2); Mean Corpuscular HGB Conc 28.8 GM/DL (32-36); Mean Corpuscular Hemoglobin 28 PG (27-34); Mean Corpuscular Volume 96.7 FL (87-102); Mean Platelet Volume 10.8 FL (9.6-12.0); Monocytes % 9.2 % (1.7-12.7); NRBC # 0.13 10*3/uL; Neutrophils # 5.1 10*3/uL (1.4-7.4); Neutrophils % 48.3 % (38.7-73.9); Platelet Count 445 T/CUMM (130-400); Red Blood Count 3.37 MC/CUMM (3.8-5.5); White Blood Count 10.6 T/CUMM (4-12)
[2018-02-14 04:28] LABS: Hematocrit 32.6 VOL% (35.7-47.0)
[2018-02-14 04:30] LABS: PT Patient Result 37.2 SECS
[2018-02-14 04:35] LABS: Calcium 8.4 MG/DL (8.5-10.1); Osmolality,Calculated 279.5 MOS/KG (273-304); Potassium 3.8 MMOL/L (3.5-5.1)
[2018-02-14 04:40] LABS: Eosinophils 13 % (0-10); Hypochromasia 1+; Lymphocytes 21 % (20-55); Nucleated Red Blood Cells 1 (0-5); Platelet Estimate Normal; Polychromasia Few; Segmented Neutrophils 59 % (50-85); Target Cells Few; Total Cells Counted 100
[2018-02-14] MEDS: INSULIN REGULAR 100 UNIT/ML SUBCUT SCH ×4 (10:48→21:23)
[2018-02-14] MEDS: ASPIRIN EC 81 MG TABLET PO SCH (10:49)
[2018-02-14] MEDS: AMIODARONE 200 MG TABLET PO SCH ×2 (10:49→21:24)
[2018-02-14] MEDS: ROSUVASTATIN 20 MG TABLET PO SCH (10:49)
[2018-02-14] MEDS: DOCUSATE SODIUM 100 MG CAPSULE PO SCH (10:49)
[2018-02-14] MEDS: POLYETHYLENE GLYCOL POWDER 17 GM PACK PO SCH (10:50)
[2018-02-14] MEDS: oxyCODONE/ACETAMINOPHEN 5-325 MG TABLET PO PRN (10:50)
[2018-02-14] MEDS: GABAPENTIN 400 MG CAPSULE PO SCH ×3 (10:50→21:24)
[2018-02-14] MEDS: PANTOPRAZOLE 40 MG TABLET PO SCH (10:50)
[2018-02-14] MEDS: FERROUS SULFATE 325 MG TABLET PO SCH (10:50)
[2018-02-14] MEDS: POTASSIUM CHLORIDE 20 MEQ TABLET PO SCH (10:50)
[2018-02-14] MEDS: CHLORHEXIDINE 0.12% ORAL RINSE 60 ML BOTTLE SWISH/SPIT SCH ×2 (10:56→21:24)
[2018-02-14] MEDS: FUROSEMIDE 40 MG/4 ML VIAL IV SCH ×2 (14:27→15:28)
[2018-02-14] MEDS: ZINC OXIDE PASTE 113 GM TUBE TOP SCH ×2 (15:37→21:24)
[2018-02-14] MEDS: SODIUM HYPOCHLORITE 0.25% IRRIG 473 ML BOTTLE TOP SCH (15:37)
[2018-02-14] MEDS: WARFARIN 5 MG TABLET PO SCH (17:46)
[2018-02-14] MEDS: WARFARIN 2 MG TABLET PO SCH (17:47)
[2018-02-14] MEDS: INSULIN GLARGINE 100 UNIT/ML SUBCUT SCH (21:23)
[2018-02-15] MEDS: oxyCODONE/ACETAMINOPHEN 5-325 MG TABLET PO PRN ×2 (03:43→21:48)
[2018-02-15] MEDS: PIPERACILLIN/TAZOBACTAM 3,375 MG in SODIUM CHLORIDE 0.9% 100 ML IV SCH ×3 (03:44→21:46)
[2018-02-15 05:41] LABS: Calcium 8.4 MG/DL (8.5-10.1); Osmolality,Calculated 280.4 MOS/KG (273-304); Potassium 3.5 MMOL/L (3.5-5.1)
[2018-02-15 06:02] LABS: Basophils # 0.1 10*3/uL (0.0-0.2); Basophils % 0.7 % (0.0-0.8); Eosinophils % 10.2 % (0.00-10.9); Immature Granulocytes % 0.4 %; Immature Granulocytes Absolute 0.04 #; Lymphocytes % 29.3 % (21.3-54.2); Mean Corpuscular HGB Conc 28.4 GM/DL (32-36); Mean Corpuscular Hemoglobin 27 PG (27-34); Mean Corpuscular Volume 95.5 FL (87-102); Mean Platelet Volume 10.2 FL (9.6-12.0); Monocytes % 9.9 % (1.7-12.7); NRBC # 0.14 10*3/uL; Neutrophils # 5.1 10*3/uL (1.4-7.4); Neutrophils % 49.5 % (38.7-73.9); Platelet Count 537 T/CUMM (130-400); Red Blood Count 3.35 MC/CUMM (3.8-5.5); Red Cell Distribution Width 18.1 % (9.3-17.3); White Blood Count 10.2 T/CUMM (4-12)
[2018-02-15 06:04] LABS: Hemoglobin 9.1 GM/DL (12.0-16.0)
[2018-02-15 06:21] LABS: Hypochromasia 2+
[2018-02-15 06:22] LABS: Acanthocytes Few; Macrocytosis 1+; Platelet Estimate Increased; Polychromasia Slight
[2018-02-15] MEDS: POTASSIUM CHLORIDE 20 MEQ TABLET PO SCH (08:23)
[2018-02-15] MEDS: ROSUVASTATIN 20 MG TABLET PO SCH (08:23)
[2018-02-15] MEDS: GABAPENTIN 400 MG CAPSULE PO SCH ×3 (08:24→21:47)
[2018-02-15] MEDS: DOCUSATE SODIUM 100 MG CAPSULE PO SCH (08:24)
[2018-02-15] MEDS: FUROSEMIDE 40 MG/4 ML VIAL IV SCH ×2 (08:24→16:08)
[2018-02-15] MEDS: FERROUS SULFATE 325 MG TABLET PO SCH (08:24)
[2018-02-15] MEDS: PANTOPRAZOLE 40 MG TABLET PO SCH (08:24)
[2018-02-15] MEDS: INSULIN REGULAR 100 UNIT/ML SUBCUT SCH ×4 (08:24→21:49)
[2018-02-15] MEDS: ASPIRIN EC 81 MG TABLET PO SCH (08:24)
[2018-02-15] MEDS: AMIODARONE 200 MG TABLET PO SCH ×2 (08:25→21:47)
[2018-02-15] MEDS: POLYETHYLENE GLYCOL POWDER 17 GM PACK PO SCH (08:26)
[2018-02-15] MEDS: ZINC OXIDE PASTE 113 GM TUBE TOP SCH ×2 (08:26→23:30)
[2018-02-15] MEDS: CHLORHEXIDINE 0.12% ORAL RINSE 60 ML BOTTLE SWISH/SPIT SCH ×2 (08:27→21:46)
[2018-02-15] MEDS: POTASSIUM CHLORIDE 20 MEQ TABLET PO PRN ×2 (12:09→13:38)
[2018-02-15] MEDS: INSULIN GLARGINE 100 UNIT/ML SUBCUT SCH (21:50)
[2018-02-16 04:35] LABS: Calcium 8.6 MG/DL (8.5-10.1); Osmolality,Calculated 284.5 MOS/KG (273-304); Potassium 3.9 MMOL/L (3.5-5.1)
[2018-02-16 04:49] LABS: Hematocrit 31.2 VOL% (35.7-47.0); Hemoglobin 8.8 GM/DL (12.0-16.0); Mean Corpuscular HGB Conc 28.2 GM/DL (32-36); Mean Corpuscular Hemoglobin 27 PG (27-34); Platelet Count 548 T/CUMM (130-400); Red Blood Count 3.25 MC/CUMM (3.8-5.5); Red Cell Distribution Width 18.2 % (9.3-17.3)
[2018-02-16 04:50] LABS: Basophils # 0.1 10*3/uL (0.0-0.2); Basophils % 0.5 % (0.0-0.8); Eosinophils % 8.9 % (0.00-10.9); Immature Granulocytes % 0.8 %; Immature Granulocytes Absolute 0.09 #; Lymphocytes # 3.4 10*3/uL (1.4-4.0); Lymphocytes % 30.5 % (21.3-54.2); Mean Platelet Volume 10.1 FL (9.6-12.0); Monocytes % 9.1 % (1.7-12.7); NRBC # 0.12 10*3/uL; Neutrophils # 5.5 10*3/uL (1.4-7.4); Neutrophils % 50.2 % (38.7-73.9)
[2018-02-16 04:56] LABS: Microcytosis 2+; Platelet Estimate Increased; Polychromasia 1+
[2018-02-16 04:57] LABS: Hypochromasia 1+
[2018-02-16] MEDS: PIPERACILLIN/TAZOBACTAM 3,375 MG in SODIUM CHLORIDE 0.9% 100 ML IV SCH ×3 (04:59→22:09)
[2018-02-16 05:11] LABS: Giant Platelets Few
[2018-02-16 05:16] LABS: PT Patient Result 42.8 SECS
[2018-02-16] MEDS: DOCUSATE SODIUM 100 MG CAPSULE PO SCH (08:54)
[2018-02-16] MEDS: PANTOPRAZOLE 40 MG TABLET PO SCH (08:54)
[2018-02-16] MEDS: POTASSIUM CHLORIDE 20 MEQ TABLET PO SCH (08:54)
[2018-02-16] MEDS: GABAPENTIN 400 MG CAPSULE PO SCH ×3 (08:54→22:05)
[2018-02-16] MEDS: ROSUVASTATIN 20 MG TABLET PO SCH (08:54)
[2018-02-16] MEDS: FERROUS SULFATE 325 MG TABLET PO SCH (08:54)
[2018-02-16] MEDS: INSULIN REGULAR 100 UNIT/ML SUBCUT SCH ×4 (08:55→22:09)
[2018-02-16] MEDS: FUROSEMIDE 40 MG/4 ML VIAL IV SCH (08:55)
[2018-02-16] MEDS: ASPIRIN EC 81 MG TABLET PO SCH (08:56)
[2018-02-16] MEDS: AMIODARONE 200 MG TABLET PO SCH ×2 (08:56→22:05)
[2018-02-16] MEDS: ZINC OXIDE PASTE 113 GM TUBE TOP SCH ×2 (08:57→22:10)
[2018-02-16] MEDS: CHLORHEXIDINE 0.12% ORAL RINSE 60 ML BOTTLE SWISH/SPIT SCH ×2 (08:57→22:10)
[2018-02-16] MEDS: POLYETHYLENE GLYCOL POWDER 17 GM PACK PO SCH (08:57)
[2018-02-16] MEDS: FUROSEMIDE 80 MG TABLET PO SCH (16:20)
[2018-02-16] MEDS: INSULIN GLARGINE 100 UNIT/ML SUBCUT SCH (22:09)
[2018-02-17 04:09] LABS: Basophils # 0.1 10*3/uL (0.0-0.2); Basophils % 0.8 % (0.0-0.8); Eosinophils # 1.1 10*3/uL (0.0-0.87); Immature Granulocytes % 0.6 %; Immature Granulocytes Absolute 0.07 #; Lymphocytes # 3.9 10*3/uL (1.4-4.0); Mean Corpuscular HGB Conc 28.3 GM/DL (32-36); Mean Corpuscular Hemoglobin 27 PG (27-34); Mean Corpuscular Volume 96.7 FL (87-102); Mean Platelet Volume 10.1 FL (9.6-12.0); Monocytes % 8.2 % (1.7-12.7); NRBC # 0.11 10*3/uL; Neutrophils # 5.7 10*3/uL (1.4-7.4); Neutrophils % 48.4 % (38.7-73.9); Platelet Count 591 T/CUMM (130-400); Red Blood Count 3.29 MC/CUMM (3.8-5.5); Red Cell Distribution Width 18.3 % (9.3-17.3); White Blood Count 11.7 T/CUMM (4-12)
[2018-02-17 04:15] LABS: Hematocrit 31.8 VOL% (35.7-47.0)
[2018-02-17 04:25] LABS: INR 2.8
[2018-02-17 04:28] LABS: PT Patient Result 29.8 SECS
[2018-02-17 04:32] LABS: INR 2.7; Partial Thromboplastin Time 36.6 SECS (0-40)
[2018-02-17 04:40] LABS: PT Patient Result 29.2 SECS
[2018-02-17 04:40] LABS: Calcium 8.2 MG/DL (8.5-10.1); Osmolality,Calculated 285.5 MOS/KG (273-304); Potassium 3.3 MMOL/L (3.5-5.1)
[2018-02-17 04:45] LABS: Hypochromasia Slight; Macrocytosis 1+; Platelet Estimate Increased; Polychromasia Few
[2018-02-17] MEDS: POTASSIUM CHLORIDE 20 MEQ TABLET PO PRN ×3 (04:54→07:08)
[2018-02-17] MEDS: PIPERACILLIN/TAZOBACTAM 3,375 MG in SODIUM CHLORIDE 0.9% 100 ML IV SCH ×4 (04:54→22:35)
[2018-02-17] MEDS: oxyCODONE/ACETAMINOPHEN 5-325 MG TABLET PO PRN (06:05)
[2018-02-17] MEDS: FERROUS SULFATE 325 MG TABLET PO SCH (08:21)
[2018-02-17] MEDS: ROSUVASTATIN 20 MG TABLET PO SCH (08:21)
[2018-02-17] MEDS: DOCUSATE SODIUM 100 MG CAPSULE PO SCH (08:21)
[2018-02-17] MEDS: ASPIRIN EC 81 MG TABLET PO SCH (08:21)
[2018-02-17] MEDS: GABAPENTIN 400 MG CAPSULE PO SCH ×3 (08:22→22:29)
[2018-02-17] MEDS: FUROSEMIDE 80 MG TABLET PO SCH ×2 (08:22→17:34)
[2018-02-17] MEDS: POLYETHYLENE GLYCOL POWDER 17 GM PACK PO SCH (08:26)
[2018-02-17] MEDS: ZINC OXIDE PASTE 113 GM TUBE TOP SCH ×2 (08:26→22:52)
[2018-02-17] MEDS: POTASSIUM CHLORIDE 20 MEQ TABLET PO SCH (08:33)
[2018-02-17] MEDS: PANTOPRAZOLE 40 MG TABLET PO SCH (08:33)
[2018-02-17] MEDS: INSULIN REGULAR 100 UNIT/ML SUBCUT SCH ×4 (08:34→22:49)
[2018-02-17] MEDS ORDERED: WARFARIN 3 MG TABLET PO SCH (09:45)
[2018-02-17] MEDS ORDERED: POTASSIUM CHLORIDE 20 MEQ TABLET PO ONE (10:05)
[2018-02-17] MEDS: CHLORHEXIDINE 0.12% ORAL RINSE 60 ML BOTTLE SWISH/SPIT SCH ×2 (10:40→22:37)
[2018-02-17] MEDS: AMIODARONE 200 MG TABLET PO SCH ×2 (10:40→22:30)
[2018-02-17] MEDS ORDERED: WARFARIN 5 MG TABLET PO SCH (18:00)
[2018-02-17] MEDS: INSULIN GLARGINE 100 UNIT/ML SUBCUT SCH (22:49)
[2018-02-18 04:40] LABS: Calcium 8.7 MG/DL (8.5-10.1); Osmolality,Calculated 285.4 MOS/KG (273-304); Potassium 3.8 MMOL/L (3.5-5.1)
[2018-02-18 05:03] LABS: INR 2.1
[2018-02-18 05:15] LABS: PT Patient Result 22.9 SECS
[2018-02-18] MEDS: PIPERACILLIN/TAZOBACTAM 3,375 MG in SODIUM CHLORIDE 0.9% 100 ML IV SCH (06:26)
[2018-02-18] MEDS: FUROSEMIDE 80 MG TABLET PO SCH ×2 (08:58→16:19)
[2018-02-18] MEDS: INSULIN REGULAR 100 UNIT/ML SUBCUT SCH ×4 (08:58→22:41)
[2018-02-18] MEDS: POTASSIUM CHLORIDE 20 MEQ TABLET PO SCH (08:59)
[2018-02-18] MEDS: ASPIRIN EC 81 MG TABLET PO SCH (08:59)
[2018-02-18] MEDS: DOCUSATE SODIUM 100 MG CAPSULE PO SCH (08:59)
[2018-02-18] MEDS: GABAPENTIN 400 MG CAPSULE PO SCH ×3 (08:59→22:41)
[2018-02-18] MEDS: AMIODARONE 200 MG TABLET PO SCH ×2 (08:59→22:39)
[2018-02-18] MEDS: FERROUS SULFATE 325 MG TABLET PO SCH (08:59)
[2018-02-18] MEDS: ROSUVASTATIN 20 MG TABLET PO SCH (08:59)
[2018-02-18] MEDS: PANTOPRAZOLE 40 MG TABLET PO SCH (09:00)
[2018-02-18] MEDS: CHLORHEXIDINE 0.12% ORAL RINSE 60 ML BOTTLE SWISH/SPIT SCH ×2 (09:00→22:41)
[2018-02-18] MEDS: POLYETHYLENE GLYCOL POWDER 17 GM PACK PO SCH (09:02)
[2018-02-18] MEDS: ZINC OXIDE PASTE 113 GM TUBE TOP SCH ×2 (11:53→22:50)
[2018-02-18] MEDS: AMPICILLIN 500 MG CAPSULE PO SCH ×3 (14:06→22:39)
[2018-02-18] MEDS ORDERED: WARFARIN 7.5 MG TABLET PO ONE (18:00)
[2018-02-18] MEDS: INSULIN GLARGINE 100 UNIT/ML SUBCUT SCH (22:50)
[2018-02-19 04:36] LABS: PT Patient Result 21.2 SECS
[2018-02-19 04:51] LABS: Calcium 8.5 MG/DL (8.5-10.1); Osmolality,Calculated 285.4 MOS/KG (273-304); Potassium 3.3 MMOL/L (3.5-5.1)
[2018-02-19] MEDS ORDERED: AMIODARONE 200 MG TABLET PO SCH (09:00)
[2018-02-19] MEDS: ASPIRIN EC 81 MG TABLET PO SCH (10:09)
[2018-02-19] MEDS: PANTOPRAZOLE 40 MG TABLET PO SCH (10:09)
[2018-02-19] MEDS: ROSUVASTATIN 20 MG TABLET PO SCH (10:09)
[2018-02-19] MEDS: AMPICILLIN 500 MG CAPSULE PO SCH ×2 (10:09→13:13)
[2018-02-19] MEDS: GABAPENTIN 400 MG CAPSULE PO SCH (10:09)
[2018-02-19] MEDS: DOCUSATE SODIUM 100 MG CAPSULE PO SCH (10:09)
[2018-02-19] MEDS: FERROUS SULFATE 325 MG TABLET PO SCH (10:09)
[2018-02-19] MEDS: FUROSEMIDE 80 MG TABLET PO SCH (10:10)
[2018-02-19] MEDS: ZINC OXIDE PASTE 113 GM TUBE TOP SCH (10:10)
[2018-02-19] MEDS: INSULIN REGULAR 100 UNIT/ML SUBCUT SCH ×2 (10:10→13:12)
[2018-02-19] MEDS: POTASSIUM CHLORIDE 20 MEQ TABLET PO SCH (10:10)
[2018-02-19] MEDS: CHLORHEXIDINE 0.12% ORAL RINSE 60 ML BOTTLE SWISH/SPIT SCH (10:11)
[2018-02-19] MEDS: POLYETHYLENE GLYCOL POWDER 17 GM PACK PO SCH (10:11)
[2018-02-19 12:43] VITALS: BP 117/59
[2018-02-19] MEDS ORDERED: WARFARIN 3 MG TABLET PO SCH (18:00)
== END 2018-02-19 13:50 | DRG 216 ==
LOC: SUATTDRO 11:33 → N.ICU 11:33 → N.5E 01-16 18:06 → N.TELES 01-18 15:58 → N.CVR 01-23 09:42 → N.ICU 01-26 11:45 → N.TELES 01-31 07:50
PROVIDERS: ADMIT Internal Medicine; ATTEND Internal Medicine
PROC: CABGAVR (ICD-10-PCS; 2018-01-23 06:51)

== ENCOUNTER 2018-03-15 00:08 | Inpatient (IN) ==
[2018-03-15 01:53] LABS: Basophils # 0.1 10*3/uL (0.0-0.2); Basophils % 0.7 % (0.0-0.8); Eosinophils # 0.1 10*3/uL (0.0-0.87); Eosinophils % 0.9 % (0.00-10.9); Hematocrit 36.4 VOL% (35.7-47.0); Hemoglobin 10.8 GM/DL (12.0-16.0); Immature Granulocytes % 0.3 %; Immature Granulocytes Absolute 0.05 #; Lymphocytes # 3.9 10*3/uL (1.4-4.0); Lymphocytes % 25.6 % (21.3-54.2); Mean Corpuscular HGB Conc 29.7 GM/DL (32-36); Mean Corpuscular Hemoglobin 28 PG (27-34); Mean Corpuscular Volume 93.1 FL (87-102); Monocytes % 6.8 % (1.7-12.7); Neutrophils # 9.9 10*3/uL (1.4-7.4); Neutrophils % 65.7 % (38.7-73.9); Platelet Count 439 T/CUMM (130-400); Red Blood Count 3.91 MC/CUMM (3.8-5.5); Red Cell Distribution Width 15.8 % (9.3-17.3); White Blood Count 15.1 T/CUMM (4-12)
[2018-03-15] MEDS ORDERED: SODIUM CHLORIDE 0.9% 1,000 ML IV STA (01:57)
[2018-03-15 02:13] LABS: Albumin 3.1 G/DL (3.4-5.0); Bilirubin,Total 0.4 MG/DL (0.2-1.0); Osmolality,Calculated 276.9 MOS/KG (273-304); Potassium 3.9 MMOL/L (3.5-5.1); Total Protein 8.1 G/DL (6.4-8.3)
[2018-03-15 03:04] LABS: INR 2.7
[2018-03-15] MEDS ORDERED: BISACODYL 5 MG TABLET PO PRN (03:49)
[2018-03-15] MEDS ORDERED: ACETAMINOPHEN 325 MG TABLET PO PRN (03:49)
[2018-03-15] MEDS ORDERED: MORPHINE 4 MG/1 ML VIAL IV PRN (03:49)
[2018-03-15] MEDS ORDERED: guaiFENesin/DM ER 600-30 MG TABLET PO PRN (03:49)
[2018-03-15] MEDS ORDERED: MAGNESIUM SULF RIDER 2 GM in PREMIX 1 EACH IV PRN (03:49)
[2018-03-15] MEDS ORDERED: MAGNESIUM SULF RIDER 4 GM in PREMIX 1 EACH IV PRN (03:49)
[2018-03-15] MEDS ORDERED: NICOTINE 21 MG/24 HR PATCH TRANSDERM PRN (03:49)
[2018-03-15] MEDS ORDERED: diphenhydrAMINE CAP 25 MG CAPSULE PO PRN (03:49)
[2018-03-15 04:31] LABS: Risk Ratio 3.06; Thyroid Stimulating Hormone 4.81 uIU/ml (0.358-3.74)
[2018-03-15] MEDS ORDERED: SODIUM CHLORIDE 0.9% 500 ML IV STA (04:33)
[2018-03-15 05:46] LABS: Apearance,Urine CLOUDY (Clear); Bacteria,Urine Occasional /HPF (Few); Bilirubin,Urine Negative (Negative); Blood, Urine Negative (Negative); Glucose,Urine (UA) Negative (Negative); Granular Casts,Urine 4 /LPF (0-1); Hyaline Casts,Urine 93 /LPF (0-3); Ketones,Urine 5 mg/dL (Negative); Mucus,Urine Occasional /LPF (Occasional); Nitrite,Urine Negative (Negative); Protein,Urine 100 MG/DL; RBC,Urine 4 /HPF (0-4); Squamous Epithelial Cell,Urine Occasional /HPF (0-10); Urine Color Amber (Yellow); Urine Specific Gravity 1.018 (1.001-1.035); Urine Urobilinogen < 2.0 EU/DL (0.2-1.0); WBC,Urine 18 /HPF (0-6)
[2018-03-15] MEDS ORDERED: SODIUM CHLORIDE 0.9% 1,000 ML IV ONE (06:14)
[2018-03-15] MEDS ORDERED: cefTRIAXone 1,000 MG in SYRINGE 1 EACH IV SCH (06:30)
[2018-03-15] MEDS ORDERED: AZITHROMYCIN INJ 500 MG in SODIUM CHLORIDE 0.9% 250 ML IV SCH (06:30)
[2018-03-15] MEDS: SODIUM CHLORIDE 0.9% 1,000 ML IV SCH ×2 (08:00→21:41)
[2018-03-15] MEDS: PANTOPRAZOLE 40 MG TABLET PO SCH (08:50)
[2018-03-15] MEDS ORDERED: SKIN HEALING OINT (AQUAPHOR) 50 GM TUBE TOP PRN (10:11)
[2018-03-15 10:34] LABS: Troponin I 0.097 NG/ML (0.00-0.045)
[2018-03-15] MEDS: LEVOTHYROXINE 137 MCG TABLET PO SCH (11:09)
[2018-03-15] MEDS: ROSUVASTATIN 20 MG TABLET PO SCH (11:10)
[2018-03-15] MEDS: cefTRIAXone 1,000 MG in SYRINGE 1 EACH IV SCH (11:10)
[2018-03-15] MEDS: DOCUSATE SODIUM 100 MG CAPSULE PO SCH (11:10)
[2018-03-15] MEDS: LIRAGLUTIDE SUBCUT SCH (12:29)
[2018-03-15] MEDS: POLYETHYLENE GLYCOL POWDER 17 GM PACK PO SCH (12:29)
[2018-03-15] MEDS: ZINC OXIDE PASTE 113 GM TUBE TOP SCH ×2 (12:29→21:12)
[2018-03-15] MEDS: dilTIAZem Drip 125 MG/125 ML PREMIX IV SCH (13:04)
[2018-03-15] MEDS: AMIODARONE 200 MG TABLET PO SCH (13:04)
[2018-03-15] MEDS: ASCORBIC ACID 500 MG TABLET PO SCH ×2 (13:17→21:12)
[2018-03-15 16:21] LABS: Alanine Aminotransferase 14 U/L (13-56); Albumin 2.6 G/DL (3.4-5.0); Alkaline Phosphatase 115 U/L (45-117); Aspartate Amino Transferase 24 U/L (0-37); Bilirubin,Total < 0.39 MG/DL (0.2-1.0); Blood Urea Nitrogen 35 MG/DL (7-18); Calcium 8.3 MG/DL (8.5-10.1); Glucose 295 MG/DL (74-106); Osmolality,Calculated 282.5 MOS/KG (273-304); Potassium 3.6 MMOL/L (3.5-5.1); Sodium 132 MMOL/L (136-145); Total Protein 7.1 G/DL (6.4-8.3)
[2018-03-15 16:33] LABS: Troponin I 0.092 NG/ML (0.00-0.045)
[2018-03-15] MEDS: GABAPENTIN 400 MG CAPSULE PO SCH ×2 (17:18→21:12)
[2018-03-15] MEDS: POTASSIUM CHLORIDE 20 MEQ TABLET PO PRN (17:18)
[2018-03-15] MEDS ORDERED: WARFARIN 2 MG TABLET PO SCH (18:00)
[2018-03-15] MEDS ORDERED: WARFARIN 4 MG TABLET PO SCH (18:00)
[2018-03-15] MEDS: INSULIN GLARGINE 100 UNIT/ML SUBCUT SCH (21:12)
[2018-03-16] MEDS ORDERED: GLUCAGON 1 MG VIAL IM PRN (07:08)
[2018-03-16] MEDS ORDERED: DEXTROSE 50% 25 GM/50 ML SYRINGE IV PRN (07:08)
[2018-03-16 07:29] LABS: PT Patient Result 32.3 SECS
[2018-03-16 07:35] LABS: Basophils # 0.1 10*3/uL (0.0-0.2); Basophils % 0.8 % (0.0-0.8); Eosinophils # 0.7 10*3/uL (0.0-0.87); Hematocrit 37.3 VOL% (35.7-47.0); Immature Granulocytes % 0.3 %; Immature Granulocytes Absolute 0.04 #; Lymphocytes % 33.7 % (21.3-54.2); Mean Corpuscular Hemoglobin 28 PG (27-34); Mean Corpuscular Volume 97.9 FL (87-102); Mean Platelet Volume 10.9 FL (9.6-12.0); Monocytes # 1.2 10*3/uL (0.11-0.8); Monocytes % 9.9 % (1.7-12.7); NRBC # 0.02 10*3/uL; Neutrophils # 5.9 10*3/uL (1.4-7.4); Neutrophils % 49.3 % (38.7-73.9); Platelet Count 454 T/CUMM (130-400); Red Blood Count 3.81 MC/CUMM (3.8-5.5); Red Cell Distribution Width 15.9 % (9.3-17.3)
[2018-03-16 07:38] LABS: Hemoglobin 10.8 GM/DL (12.0-16.0)
[2018-03-16] MEDS: POLYETHYLENE GLYCOL POWDER 17 GM PACK PO SCH (09:07)
[2018-03-16] MEDS: ROSUVASTATIN 20 MG TABLET PO SCH (09:07)
[2018-03-16] MEDS: DOCUSATE SODIUM 100 MG CAPSULE PO SCH (09:08)
[2018-03-16] MEDS: PANTOPRAZOLE 40 MG TABLET PO SCH (09:08)
[2018-03-16] MEDS: ASCORBIC ACID 500 MG TABLET PO SCH ×2 (09:08→21:59)
[2018-03-16] MEDS: GABAPENTIN 400 MG CAPSULE PO SCH ×3 (09:08→21:59)
[2018-03-16] MEDS: AMIODARONE 200 MG TABLET PO SCH (09:08)
[2018-03-16] MEDS: ZINC OXIDE PASTE 113 GM TUBE TOP SCH ×2 (09:10→22:00)
[2018-03-16] MEDS: SODIUM CHLORIDE 0.9% 1,000 ML IV SCH (09:11)
[2018-03-16] MEDS: INSULIN LISPRO 100 UNIT/ML SUBCUT SCH ×2 (09:11→17:32)
[2018-03-16] MEDS: LEVOTHYROXINE 137 MCG TABLET PO SCH (09:18)
[2018-03-16] MEDS: cefTRIAXone 1,000 MG in SYRINGE 1 EACH IV SCH (09:32)
[2018-03-16] MEDS: dilTIAZem Drip 125 MG/125 ML PREMIX IV SCH (10:00)
[2018-03-16] MEDS ORDERED: POTASSIUM CHLORIDE 20 MEQ TABLET PO ONE (12:17)
[2018-03-16] MEDS ORDERED: MAGNESIUM SULF RIDER 2 GM in PREMIX 1 EACH IV ONE (12:17)
[2018-03-16] MEDS: POTASSIUM CHLORIDE 20 MEQ TABLET PO SCH ×2 (12:28→12:30)
[2018-03-16] MEDS: INSULIN GLARGINE 100 UNIT/ML SUBCUT SCH (22:00)
[2018-03-16] MEDS: POTASSIUM CHLORIDE 20 MEQ TABLET PO PRN (22:03)
[2018-03-17] MEDS: SODIUM CHLORIDE 0.9% 1,000 ML IV SCH ×2 (00:37→09:10)
[2018-03-17 05:01] LABS: Basophils # 0.1 10*3/uL (0.0-0.2); Basophils % 0.7 % (0.0-0.8); Eosinophils # 0.7 10*3/uL (0.0-0.87); Hematocrit 37.4 VOL% (35.7-47.0); Hemoglobin 10.7 GM/DL (12.0-16.0); Immature Granulocytes % 0.4 %; Immature Granulocytes Absolute 0.05 #; Lymphocytes # 5.1 10*3/uL (1.4-4.0); Lymphocytes % 37.7 % (21.3-54.2); Mean Corpuscular HGB Conc 28.6 GM/DL (32-36); Mean Corpuscular Hemoglobin 28 PG (27-34); Mean Corpuscular Volume 98.2 FL (87-102); Mean Platelet Volume 10.9 FL (9.6-12.0); Monocytes # 1.2 10*3/uL (0.11-0.8); Monocytes % 9.1 % (1.7-12.7); NRBC # 0.03 10*3/uL; Neutrophils # 6.3 10*3/uL (1.4-7.4); Neutrophils % 47.1 % (38.7-73.9); Platelet Count 423 T/CUMM (130-400); Red Blood Count 3.81 MC/CUMM (3.8-5.5); Red Cell Distribution Width 15.9 % (9.3-17.3); White Blood Count 13.5 T/CUMM (4-12)
[2018-03-17 05:02] LABS: INR 3.1
[2018-03-17] MEDS: dilTIAZem Drip 125 MG/125 ML PREMIX IV SCH ×2 (06:43→14:13)
[2018-03-17 07:29] LABS: Osmolality,Calculated 277.5 MOS/KG (273-304); Potassium 5.3 MMOL/L (3.5-5.1)
[2018-03-17] MEDS ORDERED: AMIODARONE INJ 150 MG in DEXTROSE 5% 100 ML IV ONE (08:00)
[2018-03-17] MEDS: POTASSIUM CHLORIDE 20 MEQ TABLET PO SCH (09:18)
[2018-03-17] MEDS: AMIODARONE 200 MG TABLET PO SCH ×2 (09:18→20:17)
[2018-03-17] MEDS: ASCORBIC ACID 500 MG TABLET PO SCH ×2 (09:18→20:16)
[2018-03-17] MEDS: METOPROLOL TARTRATE 25 MG TABLET PO SCH ×2 (09:18→20:16)
[2018-03-17] MEDS: GABAPENTIN 400 MG CAPSULE PO SCH ×3 (09:18→20:16)
[2018-03-17] MEDS: ROSUVASTATIN 20 MG TABLET PO SCH (09:18)
[2018-03-17] MEDS: DOCUSATE SODIUM 100 MG CAPSULE PO SCH (09:19)
[2018-03-17] MEDS: INSULIN LISPRO 100 UNIT/ML SUBCUT SCH ×2 (09:19→17:16)
[2018-03-17] MEDS: PANTOPRAZOLE 40 MG TABLET PO SCH (09:19)
[2018-03-17] MEDS: LEVOTHYROXINE 137 MCG TABLET PO SCH (09:19)
[2018-03-17] MEDS: POLYETHYLENE GLYCOL POWDER 17 GM PACK PO SCH (09:24)
[2018-03-17] MEDS ORDERED: FUROSEMIDE 20 MG/2 ML VIAL IV ONE ×2 (10:18→15:15)
[2018-03-17] MEDS ORDERED: ALBUTEROL/IPRATROPIUM 3 ML NEB RESP TX ONE (13:12)
[2018-03-17] MEDS ORDERED: ALBUTEROL 2.5 MG/3 ML NEB RESP TX ONE (13:20)
[2018-03-17] MEDS ORDERED: ETOMIDATE 40 MG/20 ML VIAL IV ONE (13:35)
[2018-03-17] MEDS ORDERED: MIDAZOLAM 2 MG/2 ML VIAL ONE (13:35)
[2018-03-17] MEDS ORDERED: PROPOFOL 200 MG/20 ML VIAL IV ONE (13:35)
[2018-03-17] MEDS: cefTRIAXone 1,000 MG in SYRINGE 1 EACH IV SCH (13:49)
[2018-03-17] MEDS ORDERED: FUROSEMIDE 40 MG/4 ML VIAL ONE (14:01)
[2018-03-17] MEDS: LINEZOLID 600 MG TABLET PO SCH ×2 (16:03→20:41)
[2018-03-17] MEDS: ZINC OXIDE PASTE 113 GM TUBE TOP SCH ×2 (16:07→20:17)
[2018-03-17 17:44] LABS: Apearance,Urine CLEAR (Clear); Bilirubin,Urine Negative (Negative); Blood, Urine Negative (Negative); Glucose,Urine (UA) Negative (Negative); Hyaline Casts,Urine 4 /LPF (0-3); Ketones,Urine Negative (Negative); Mucus,Urine Occasional /LPF (Occasional); Nitrite,Urine Negative (Negative); Protein,Urine Negative; RBC,Urine 1 /HPF (0-4); Urine Color Yellow (Yellow); Urine Specific Gravity 1.015 (1.001-1.035); Urine Urobilinogen < 2.0 EU/DL (0.2-1.0); WBC,Urine 2 /HPF (0-6)
[2018-03-17] MEDS ORDERED: WARFARIN 2 MG TABLET PO SCH (18:00)
[2018-03-17] MEDS: INSULIN GLARGINE 100 UNIT/ML SUBCUT SCH (20:17)
[2018-03-18 04:42] LABS: INR 3.4; PT Patient Result 36.1 SECS
[2018-03-18 04:51] LABS: Calcium 8.9 MG/DL (8.5-10.1); Osmolality,Calculated 276.7 MOS/KG (273-304)
[2018-03-18] MEDS ORDERED: SODIUM POLYSTYRENE SULFATE 15 GM/60 ML BOTTLE PO ONE (05:05)
[2018-03-18 05:20] LABS: Basophils # 0.1 10*3/uL (0.0-0.2); Basophils % 0.7 % (0.0-0.8); Eosinophils # 0.2 10*3/uL (0.0-0.87); Eosinophils % 1.4 % (0.00-10.9); Hematocrit 40.4 VOL% (35.7-47.0); Immature Granulocytes % 0.4 %; Immature Granulocytes Absolute 0.06 #; Lymphocytes # 5.2 10*3/uL (1.4-4.0); Lymphocytes % 34.1 % (21.3-54.2); Mean Corpuscular HGB Conc 28.2 GM/DL (32-36); Mean Corpuscular Hemoglobin 28 PG (27-34); Mean Corpuscular Volume 98.3 FL (87-102); Mean Platelet Volume 10.8 FL (9.6-12.0); Monocytes # 1.4 10*3/uL (0.11-0.8); Monocytes % 9.1 % (1.7-12.7); NRBC # 0.03 10*3/uL; Neutrophils # 8.2 10*3/uL (1.4-7.4); Neutrophils % 54.3 % (38.7-73.9); Platelet Count 406 T/CUMM (130-400); Red Blood Count 4.11 MC/CUMM (3.8-5.5); Red Cell Distribution Width 15.6 % (9.3-17.3); White Blood Count 15.1 T/CUMM (4-12)
[2018-03-18 05:21] LABS: Hemoglobin 11.4 GM/DL (12.0-16.0)
[2018-03-18 05:36] LABS: Hypochromasia 1+; Ovalocytes Slight; Platelet Estimate Adequate
[2018-03-18] MEDS: LEVOTHYROXINE 137 MCG TABLET PO SCH (08:37)
[2018-03-18] MEDS: METOPROLOL TARTRATE 25 MG TABLET PO SCH ×2 (08:37→22:23)
[2018-03-18] MEDS: LINEZOLID 600 MG TABLET PO SCH ×2 (08:37→22:24)
[2018-03-18] MEDS: POLYETHYLENE GLYCOL POWDER 17 GM PACK PO SCH (08:37)
[2018-03-18] MEDS: ASCORBIC ACID 500 MG TABLET PO SCH ×2 (08:38→22:23)
[2018-03-18] MEDS: PANTOPRAZOLE 40 MG TABLET PO SCH (08:38)
[2018-03-18] MEDS: GABAPENTIN 400 MG CAPSULE PO SCH ×3 (08:38→22:22)
[2018-03-18] MEDS: ROSUVASTATIN 20 MG TABLET PO SCH (08:38)
[2018-03-18] MEDS: AMIODARONE 200 MG TABLET PO SCH ×2 (08:38→22:23)
[2018-03-18] MEDS: DOCUSATE SODIUM 100 MG CAPSULE PO SCH (08:38)
[2018-03-18] MEDS: INSULIN LISPRO 100 UNIT/ML SUBCUT SCH ×3 (08:38→22:28)
[2018-03-18] MEDS ORDERED: FUROSEMIDE 40 MG TABLET PO SCH (09:00)
[2018-03-18] MEDS: ZINC OXIDE PASTE 113 GM TUBE TOP SCH ×2 (10:08→22:28)
[2018-03-18] MEDS ORDERED: SODIUM CHLORIDE 0.9% 1,000 ML IV SCH (11:00)
[2018-03-18] MEDS ORDERED: WARFARIN 2.5 MG TABLET PO SCH (18:00)
[2018-03-18] MEDS: INSULIN GLARGINE 100 UNIT/ML SUBCUT SCH (22:29)
[2018-03-19 05:03] LABS: INR 3.9
[2018-03-19 05:05] LABS: Calcium 8.7 MG/DL (8.5-10.1); Osmolality,Calculated 280.8 MOS/KG (273-304); PT Patient Result 42.1 SECS; Potassium 4.5 MMOL/L (3.5-5.1)
[2018-03-19 05:40] LABS: Basophils # 0.1 10*3/uL (0.0-0.2); Basophils % 0.6 % (0.0-0.8); Eosinophils # 0.7 10*3/uL (0.0-0.87); Eosinophils % 4.6 % (0.00-10.9); Hematocrit 37.5 VOL% (35.7-47.0); Immature Granulocytes % 0.5 %; Immature Granulocytes Absolute 0.07 #; Lymphocytes # 5.1 10*3/uL (1.4-4.0); Lymphocytes % 33.6 % (21.3-54.2); Mean Corpuscular HGB Conc 28.5 GM/DL (32-36); Mean Corpuscular Hemoglobin 28 PG (27-34); Mean Corpuscular Volume 97.9 FL (87-102); Mean Platelet Volume 10.6 FL (9.6-12.0); Monocytes # 1.5 10*3/uL (0.11-0.8); Monocytes % 10.1 % (1.7-12.7); NRBC # 0.03 10*3/uL; Neutrophils # 7.7 10*3/uL (1.4-7.4); Neutrophils % 50.6 % (38.7-73.9); Platelet Count 386 T/CUMM (130-400); Red Blood Count 3.83 MC/CUMM (3.8-5.5); Red Cell Distribution Width 15.7 % (9.3-17.3); White Blood Count 15.3 T/CUMM (4-12)
[2018-03-19 05:42] LABS: Hemoglobin 10.7 GM/DL (12.0-16.0); Hypochromasia 1+
[2018-03-19 05:43] LABS: Platelet Estimate Adequate
[2018-03-19] MEDS: POLYETHYLENE GLYCOL POWDER 17 GM PACK PO SCH (09:01)
[2018-03-19] MEDS: PANTOPRAZOLE 40 MG TABLET PO SCH (09:02)
[2018-03-19] MEDS: ROSUVASTATIN 20 MG TABLET PO SCH (09:02)
[2018-03-19] MEDS: DOCUSATE SODIUM 100 MG CAPSULE PO SCH (09:02)
[2018-03-19] MEDS: ASCORBIC ACID 500 MG TABLET PO SCH ×2 (09:02→21:56)
[2018-03-19] MEDS: GABAPENTIN 400 MG CAPSULE PO SCH ×3 (09:02→21:56)
[2018-03-19] MEDS: AMIODARONE 200 MG TABLET PO SCH ×2 (09:02→21:57)
[2018-03-19] MEDS: METOPROLOL TARTRATE 25 MG TABLET PO SCH ×2 (09:02→21:57)
[2018-03-19] MEDS: FUROSEMIDE 40 MG TABLET PO SCH ×2 (09:03→17:03)
[2018-03-19] MEDS: INSULIN LISPRO 100 UNIT/ML SUBCUT SCH ×4 (09:03→21:56)
[2018-03-19] MEDS: ZINC OXIDE PASTE 113 GM TUBE TOP SCH ×2 (09:04→21:57)
[2018-03-19] MEDS: LEVOTHYROXINE 137 MCG TABLET PO SCH (09:22)
[2018-03-19] MEDS: LINEZOLID 600 MG TABLET PO SCH ×2 (09:22→21:57)
[2018-03-19] MEDS ORDERED: FUROSEMIDE 20 MG/2 ML VIAL IV ONE (09:56)
[2018-03-19 13:01] LABS: Apearance,Urine Slightly Hazy (Clear); Bilirubin,Urine Negative (Negative); Blood, Urine Negative (Negative); Glucose,Urine (UA) 50 mg/dL (Negative); Hyaline Casts,Urine 3 /LPF (0-3); Ketones,Urine Negative (Negative); Mucus,Urine Occasional /LPF (Occasional); Nitrite,Urine Negative (Negative); Protein,Urine 30 MG/DL; RBC,Urine 3 /HPF (0-4); Squamous Epithelial Cell,Urine Occasional /HPF (0-10); Transitional Epi Cells,Urine Occasional /HPF (<1); Urine Color Yellow (Yellow); Urine Specific Gravity 1.015 (1.001-1.035); Urine Urobilinogen < 2.0 EU/DL (0.2-1.0); WBC,Urine 2 /HPF (0-6)
[2018-03-19] MEDS: INSULIN GLARGINE 100 UNIT/ML SUBCUT SCH (21:55)
[2018-03-20 04:16] LABS: INR 2.6
[2018-03-20 04:17] LABS: PT Patient Result 28.3 SECS
[2018-03-20 04:19] LABS: Calcium 8.5 MG/DL (8.5-10.1); Osmolality,Calculated 275.1 MOS/KG (273-304); Potassium 4.1 MMOL/L (3.5-5.1)
[2018-03-20 04:33] LABS: Basophils # 0.1 10*3/uL (0.0-0.2); Basophils % 0.8 % (0.0-0.8); Eosinophils # 0.8 10*3/uL (0.0-0.87); Eosinophils % 5.7 % (0.00-10.9); Hematocrit 36.8 VOL% (35.7-47.0); Hemoglobin 10.7 GM/DL (12.0-16.0); Immature Granulocytes % 0.4 %; Immature Granulocytes Absolute 0.05 #; Lymphocytes # 5.6 10*3/uL (1.4-4.0); Lymphocytes % 39.3 % (21.3-54.2); Mean Corpuscular HGB Conc 29.1 GM/DL (32-36); Mean Corpuscular Hemoglobin 28 PG (27-34); Mean Corpuscular Volume 95.8 FL (87-102); Mean Platelet Volume 10.2 FL (9.6-12.0); Monocytes # 1.4 10*3/uL (0.11-0.8); Monocytes % 9.7 % (1.7-12.7); NRBC # 0.06 10*3/uL; Neutrophils # 6.3 10*3/uL (1.4-7.4); Neutrophils % 44.1 % (38.7-73.9); Platelet Count 370 T/CUMM (130-400); Red Blood Count 3.84 MC/CUMM (3.8-5.5); Red Cell Distribution Width 15.9 % (9.3-17.3); White Blood Count 14.2 T/CUMM (4-12)
[2018-03-20 04:58] LABS: Hypochromasia 1+; Platelet Estimate Adequate
[2018-03-20] MEDS: INSULIN LISPRO 100 UNIT/ML SUBCUT SCH ×4 (09:07→21:55)
[2018-03-20] MEDS: ROSUVASTATIN 20 MG TABLET PO SCH (09:08)
[2018-03-20] MEDS: ASCORBIC ACID 500 MG TABLET PO SCH ×2 (09:08→21:55)
[2018-03-20] MEDS: GABAPENTIN 400 MG CAPSULE PO SCH ×3 (09:08→21:55)
[2018-03-20] MEDS: METOPROLOL TARTRATE 25 MG TABLET PO SCH ×2 (09:09→21:55)
[2018-03-20] MEDS: AMIODARONE 200 MG TABLET PO SCH ×2 (09:09→21:55)
[2018-03-20] MEDS: ZINC OXIDE PASTE 113 GM TUBE TOP SCH ×2 (09:09→21:56)
[2018-03-20] MEDS: PANTOPRAZOLE 40 MG TABLET PO SCH (09:09)
[2018-03-20] MEDS: FUROSEMIDE 40 MG TABLET PO SCH (09:09)
[2018-03-20] MEDS: DOCUSATE SODIUM 100 MG CAPSULE PO SCH (09:09)
[2018-03-20] MEDS: POLYETHYLENE GLYCOL POWDER 17 GM PACK PO SCH (09:09)
[2018-03-20] MEDS: LINEZOLID 600 MG TABLET PO SCH ×2 (09:20→21:55)
[2018-03-20] MEDS: LEVOTHYROXINE 137 MCG TABLET PO SCH (09:20)
[2018-03-20] MEDS ORDERED: ALBUMIN 25% 12.5 GM in PREMIX 1 EACH IV ONE (13:12)
[2018-03-20] MEDS ORDERED: FUROSEMIDE 40 MG/4 ML VIAL IV ONE (13:16)
[2018-03-20] MEDS: WARFARIN 3 MG TABLET PO SCH (18:15)
[2018-03-20] MEDS: INSULIN GLARGINE 100 UNIT/ML SUBCUT SCH (21:56)
[2018-03-21 05:37] LABS: INR 1.7; PT Patient Result 18.5 SECS
[2018-03-21 05:48] LABS: Albumin 2.6 G/DL (3.4-5.0); Bilirubin,Total 1.5 MG/DL (0.2-1.0); Calcium 8.9 MG/DL (8.5-10.1); Osmolality,Calculated 282.7 MOS/KG (273-304); Potassium 3.7 MMOL/L (3.5-5.1)
[2018-03-21] MEDS: INSULIN LISPRO 100 UNIT/ML SUBCUT SCH ×4 (09:21→21:13)
[2018-03-21] MEDS: GABAPENTIN 400 MG CAPSULE PO SCH ×3 (09:38→21:04)
[2018-03-21] MEDS: ROSUVASTATIN 20 MG TABLET PO SCH (09:38)
[2018-03-21] MEDS: POLYETHYLENE GLYCOL POWDER 17 GM PACK PO SCH (09:38)
[2018-03-21] MEDS: DOCUSATE SODIUM 100 MG CAPSULE PO SCH (09:38)
[2018-03-21] MEDS: ASCORBIC ACID 500 MG TABLET PO SCH ×2 (09:38→21:04)
[2018-03-21] MEDS: PANTOPRAZOLE 40 MG TABLET PO SCH (09:38)
[2018-03-21] MEDS: LEVOTHYROXINE 137 MCG TABLET PO SCH (09:38)
[2018-03-21] MEDS: METOPROLOL TARTRATE 25 MG TABLET PO SCH ×2 (09:38→21:04)
[2018-03-21] MEDS: AMIODARONE 200 MG TABLET PO SCH ×2 (09:38→21:05)
[2018-03-21] MEDS: ZINC OXIDE PASTE 113 GM TUBE TOP SCH ×2 (09:38→21:15)
[2018-03-21] MEDS: LINEZOLID 600 MG TABLET PO SCH ×2 (09:38→21:05)
[2018-03-21] MEDS: ENOXAPARIN 120 MG/0.8 ML SYRINGE SUBCUT SCH ×2 (13:13→22:30)
[2018-03-21] MEDS: MIDODRINE 2.5 MG TABLET PO SCH ×2 (15:40→21:03)
[2018-03-21] MEDS: FUROSEMIDE 40 MG TABLET PO SCH (15:41)
[2018-03-21] MEDS: WARFARIN 3 MG TABLET PO SCH (17:28)
[2018-03-21] MEDS: INSULIN GLARGINE 100 UNIT/ML SUBCUT SCH (21:14)
[2018-03-22 05:51] LABS: PT Patient Result 21.8 SECS
[2018-03-22] MEDS: INSULIN LISPRO 100 UNIT/ML SUBCUT SCH ×4 (08:11→22:49)
[2018-03-22] MEDS: LIRAGLUTIDE SUBCUT SCH (10:37)
[2018-03-22] MEDS: DOCUSATE SODIUM 100 MG CAPSULE PO SCH (10:39)
[2018-03-22] MEDS: MIDODRINE 2.5 MG TABLET PO SCH ×2 (10:39→22:48)
[2018-03-22] MEDS: LINEZOLID 600 MG TABLET PO SCH ×2 (10:39→22:41)
[2018-03-22] MEDS: ROSUVASTATIN 20 MG TABLET PO SCH (10:39)
[2018-03-22] MEDS: GABAPENTIN 400 MG CAPSULE PO SCH ×3 (10:39→22:41)
[2018-03-22] MEDS: METOPROLOL TARTRATE 25 MG TABLET PO SCH ×2 (10:39→23:06)
[2018-03-22] MEDS: FUROSEMIDE 40 MG TABLET PO SCH ×2 (10:40→17:13)
[2018-03-22] MEDS: PANTOPRAZOLE 40 MG TABLET PO SCH (10:40)
[2018-03-22] MEDS: LEVOTHYROXINE 137 MCG TABLET PO SCH (10:40)
[2018-03-22] MEDS: ASCORBIC ACID 500 MG TABLET PO SCH ×2 (10:40→22:41)
[2018-03-22] MEDS: AMIODARONE 200 MG TABLET PO SCH ×2 (10:40→22:41)
[2018-03-22] MEDS: ZINC OXIDE PASTE 113 GM TUBE TOP SCH ×2 (10:41→23:06)
[2018-03-22] MEDS: POLYETHYLENE GLYCOL POWDER 17 GM PACK PO SCH (10:44)
[2018-03-22] MEDS: POTASSIUM CHLORIDE 20 MEQ TABLET PO PRN (11:12)
[2018-03-22] MEDS: ENOXAPARIN 120 MG/0.8 ML SYRINGE SUBCUT SCH ×2 (11:13→23:06)
[2018-03-22] MEDS: WARFARIN 3 MG TABLET PO SCH (17:13)
[2018-03-22] MEDS ORDERED: diphenhydrAMINE CAP 25 MG CAPSULE PO ONE (22:27)
[2018-03-22] MEDS: INSULIN GLARGINE 100 UNIT/ML SUBCUT SCH (22:51)
[2018-03-23 03:49] LABS: INR 2.5
[2018-03-23 04:02] LABS: PT Patient Result 27.2 SECS
[2018-03-23 04:09] LABS: Albumin 2.6 G/DL (3.4-5.0); Bilirubin,Total 0.4 MG/DL (0.2-1.0); Calcium 8.5 MG/DL (8.5-10.1); Osmolality,Calculated 282.4 MOS/KG (273-304); Potassium 3.5 MMOL/L (3.5-5.1); Total Protein 6.8 G/DL (6.4-8.3)
[2018-03-23 04:16] LABS: Basophils # 0.1 10*3/uL (0.0-0.2); Basophils % 0.9 % (0.0-0.8); Eosinophils # 0.6 10*3/uL (0.0-0.87); Hematocrit 34.4 VOL% (35.7-47.0); Hemoglobin 9.9 GM/DL (12.0-16.0); Immature Granulocytes % 0.3 %; Immature Granulocytes Absolute 0.03 #; Lymphocytes # 4.8 10*3/uL (1.4-4.0); Lymphocytes % 46.5 % (21.3-54.2); Mean Corpuscular HGB Conc 28.8 GM/DL (32-36); Mean Corpuscular Hemoglobin 27 PG (27-34); Mean Corpuscular Volume 95.3 FL (87-102); Mean Platelet Volume 10.5 FL (9.6-12.0); Monocytes # 0.9 10*3/uL (0.11-0.8); Monocytes % 9.1 % (1.7-12.7); NRBC # 0.02 10*3/uL; Neutrophils # 3.8 10*3/uL (1.4-7.4); Neutrophils % 37.2 % (38.7-73.9); Platelet Count 326 T/CUMM (130-400); Red Blood Count 3.61 MC/CUMM (3.8-5.5); Red Cell Distribution Width 15.9 % (9.3-17.3); White Blood Count 10.3 T/CUMM (4-12)
[2018-03-23 04:52] LABS: Eosinophils 10 % (0-10); Lymphocytes 46 % (20-55); Metamyelocytes 1 %; Reactive Lymphocytes 1+; Segmented Neutrophils 35 % (50-85)
[2018-03-23 04:53] LABS: Platelet Estimate Normal; Polychromasia Few
[2018-03-23 04:54] LABS: Howell-Jolly Bodies Few; Hypochromasia 1+
[2018-03-23 04:56] LABS: Total Cells Counted 100
[2018-03-23] MEDS: LINEZOLID 600 MG TABLET PO SCH (10:14)
[2018-03-23] MEDS: ROSUVASTATIN 20 MG TABLET PO SCH (10:14)
[2018-03-23] MEDS: LEVOTHYROXINE 137 MCG TABLET PO SCH (10:14)
[2018-03-23] MEDS: ASCORBIC ACID 500 MG TABLET PO SCH (10:14)
[2018-03-23] MEDS: POLYETHYLENE GLYCOL POWDER 17 GM PACK PO SCH (10:14)
[2018-03-23] MEDS: PANTOPRAZOLE 40 MG TABLET PO SCH (10:15)
[2018-03-23] MEDS: METOPROLOL TARTRATE 25 MG TABLET PO SCH (10:15)
[2018-03-23] MEDS: GABAPENTIN 400 MG CAPSULE PO SCH ×2 (10:15→16:03)
[2018-03-23] MEDS: MIDODRINE 2.5 MG TABLET PO SCH (10:15)
[2018-03-23] MEDS: INSULIN LISPRO 100 UNIT/ML SUBCUT SCH ×3 (10:19→16:04)
[2018-03-23] MEDS: DOCUSATE SODIUM 100 MG CAPSULE PO SCH (10:20)
[2018-03-23] MEDS: FUROSEMIDE 40 MG TABLET PO SCH ×2 (10:20→16:04)
[2018-03-23] MEDS: LIRAGLUTIDE SUBCUT SCH (10:24)
[2018-03-23] MEDS: AMIODARONE 200 MG TABLET PO SCH (10:24)
[2018-03-23] MEDS: ZINC OXIDE PASTE 113 GM TUBE TOP SCH (10:24)
[2018-03-23] MEDS: ENOXAPARIN 120 MG/0.8 ML SYRINGE SUBCUT SCH (10:31)
[2018-03-23] MEDS: WARFARIN 3 MG TABLET PO SCH (17:39)
[2018-03-24] MEDS: MIDODRINE 2.5 MG TABLET PO SCH (00:18)
[2018-03-24] MEDS: GABAPENTIN 400 MG CAPSULE PO SCH ×4 (00:18→22:34)
[2018-03-24] MEDS: ASCORBIC ACID 500 MG TABLET PO SCH ×3 (00:19→22:31)
[2018-03-24] MEDS: AMIODARONE 200 MG TABLET PO SCH ×3 (00:19→22:32)
[2018-03-24] MEDS: LINEZOLID 600 MG TABLET PO SCH ×3 (00:20→22:32)
[2018-03-24] MEDS: ZINC OXIDE PASTE 113 GM TUBE TOP SCH ×3 (00:21→22:40)
[2018-03-24] MEDS: INSULIN LISPRO 100 UNIT/ML SUBCUT SCH ×5 (00:40→22:40)
[2018-03-24] MEDS: INSULIN GLARGINE 100 UNIT/ML SUBCUT SCH ×2 (00:41→22:59)
[2018-03-24] MEDS: ENOXAPARIN 120 MG/0.8 ML SYRINGE SUBCUT SCH ×3 (00:42→23:19)
[2018-03-24] MEDS ORDERED: FUROSEMIDE 40 MG/4 ML VIAL IV ONE (07:00)
[2018-03-24] MEDS ORDERED: MIDODRINE 2.5 MG TABLET PO SCH (09:00)
[2018-03-24] MEDS: ROSUVASTATIN 20 MG TABLET PO SCH (09:16)
[2018-03-24] MEDS: LEVOTHYROXINE 137 MCG TABLET PO SCH (09:16)
[2018-03-24] MEDS: FUROSEMIDE 40 MG TABLET PO SCH (09:16)
[2018-03-24] MEDS: PANTOPRAZOLE 40 MG TABLET PO SCH (09:17)
[2018-03-24] MEDS: METOPROLOL TARTRATE 25 MG TABLET PO SCH ×3 (09:17→22:35)
[2018-03-24] MEDS: POLYETHYLENE GLYCOL POWDER 17 GM PACK PO SCH (09:18)
[2018-03-24] MEDS: DOCUSATE SODIUM 100 MG CAPSULE PO SCH (09:18)
[2018-03-24] MEDS: LIRAGLUTIDE SUBCUT SCH (09:31)
[2018-03-24] MEDS: BUMETANIDE 1 MG/4 ML VIAL IV SCH (15:16)
[2018-03-24] MEDS: MIDODRINE 5 MG TABLET PO SCH ×2 (15:35→22:59)
[2018-03-24] MEDS: WARFARIN 3 MG TABLET PO SCH (17:39)
[2018-03-24] MEDS ORDERED: diphenhydrAMINE CAP 25 MG CAPSULE PO ONE (21:14)
[2018-03-25 04:31] LABS: INR 4.6
[2018-03-25 04:37] LABS: Calcium 8.4 MG/DL (8.5-10.1); Osmolality,Calculated 280.4 MOS/KG (273-304); Potassium 3.5 MMOL/L (3.5-5.1)
[2018-03-25 04:53] LABS: PT Patient Result 49.7 SECS
[2018-03-25 05:05] LABS: Basophils # 0.1 10*3/uL (0.0-0.2); Basophils % 0.7 % (0.0-0.8); Eosinophils # 0.6 10*3/uL (0.0-0.87); Eosinophils % 5.2 % (0.00-10.9); Immature Granulocytes % 0.3 %; Immature Granulocytes Absolute 0.03 #; Lymphocytes # 5.5 10*3/uL (1.4-4.0); Lymphocytes % 47.4 % (21.3-54.2); Mean Corpuscular HGB Conc 28.9 GM/DL (32-36); Mean Corpuscular Hemoglobin 28 PG (27-34); Mean Corpuscular Volume 95.2 FL (87-102); Mean Platelet Volume 10.5 FL (9.6-12.0); Monocytes % 8.4 % (1.7-12.7); NRBC # 0.04 10*3/uL; Neutrophils # 4.4 10*3/uL (1.4-7.4); Platelet Count 304 T/CUMM (130-400); Red Blood Count 3.78 MC/CUMM (3.8-5.5); Red Cell Distribution Width 16.2 % (9.3-17.3); White Blood Count 11.7 T/CUMM (4-12)
[2018-03-25 05:06] LABS: Hemoglobin 10.4 GM/DL (12.0-16.0)
[2018-03-25 05:15] LABS: Eosinophils 7 % (0-10); Hypochromasia 1+; Lymphocytes 50 % (20-55); Ovalocytes Slight; Platelet Estimate Adequate; Segmented Neutrophils 40 % (50-85); Total Cells Counted 100
[2018-03-25] MEDS: LEVOTHYROXINE 137 MCG TABLET PO SCH ×2 (07:00→08:46)
[2018-03-25] MEDS: INSULIN LISPRO 100 UNIT/ML SUBCUT SCH ×4 (08:43→23:55)
[2018-03-25] MEDS: MIDODRINE 5 MG TABLET PO SCH ×3 (08:44→23:36)
[2018-03-25] MEDS: ASCORBIC ACID 500 MG TABLET PO SCH ×2 (08:45→23:36)
[2018-03-25] MEDS: GABAPENTIN 400 MG CAPSULE PO SCH ×3 (08:45→23:35)
[2018-03-25] MEDS: PANTOPRAZOLE 40 MG TABLET PO SCH (08:45)
[2018-03-25] MEDS: ROSUVASTATIN 20 MG TABLET PO SCH (08:45)
[2018-03-25] MEDS: DOCUSATE SODIUM 100 MG CAPSULE PO SCH (08:45)
[2018-03-25] MEDS: AMIODARONE 200 MG TABLET PO SCH ×2 (08:46→23:35)
[2018-03-25] MEDS: ZINC OXIDE PASTE 113 GM TUBE TOP SCH ×2 (08:46→23:35)
[2018-03-25] MEDS: BUMETANIDE 1 MG/4 ML VIAL IV SCH ×2 (08:47→18:38)
[2018-03-25] MEDS: POLYETHYLENE GLYCOL POWDER 17 GM PACK PO SCH (08:55)
[2018-03-25] MEDS: METOPROLOL TARTRATE 25 MG TABLET PO SCH ×2 (09:00→23:35)
[2018-03-25] MEDS ORDERED: metOLazone 5 MG TABLET PO SCH (09:00)
[2018-03-25] MEDS: LIRAGLUTIDE SUBCUT SCH (09:00)
[2018-03-25] MEDS ORDERED: POTASSIUM CHLORIDE 20 MEQ TABLET PO SCH (09:00)
[2018-03-25] MEDS: POTASSIUM CHLORIDE 20 MEQ TABLET PO PRN (13:03)
[2018-03-25] MEDS ORDERED: WARFARIN 3 MG TABLET PO SCH (18:00)
[2018-03-25] MEDS: ZALEPLON 5 MG CAPSULE PO PRN (23:37)
[2018-03-25] MEDS: INSULIN GLARGINE 100 UNIT/ML SUBCUT SCH (23:55)
[2018-03-26 04:33] LABS: Basophils # 0.1 10*3/uL (0.0-0.2); Eosinophils # 0.5 10*3/uL (0.0-0.87); Hemoglobin 9.9 GM/DL (12.0-16.0); Immature Granulocytes % 0.3 %; Immature Granulocytes Absolute 0.03 #; Lymphocytes # 4.5 10*3/uL (1.4-4.0); Lymphocytes % 39.3 % (21.3-54.2); Mean Corpuscular HGB Conc 29.1 GM/DL (32-36); Mean Corpuscular Hemoglobin 27 PG (27-34); Mean Corpuscular Volume 93.9 FL (87-102); Mean Platelet Volume 10.4 FL (9.6-12.0); Monocytes % 8.9 % (1.7-12.7); NRBC # 0.02 10*3/uL; Neutrophils # 5.3 10*3/uL (1.4-7.4); Neutrophils % 46.5 % (38.7-73.9); Platelet Count 260 T/CUMM (130-400); Red Blood Count 3.62 MC/CUMM (3.8-5.5); Red Cell Distribution Width 16.2 % (9.3-17.3); White Blood Count 11.4 T/CUMM (4-12)
[2018-03-26 04:47] LABS: Calcium 8.6 MG/DL (8.5-10.1); Osmolality,Calculated 278.5 MOS/KG (273-304)
[2018-03-26 04:50] LABS: Hematocrit 33.7 VOL% (35.7-47.0)
[2018-03-26 04:55] LABS: INR 4.7
[2018-03-26 05:08] LABS: PT Patient Result 50.4 SECS
[2018-03-26] MEDS: POTASSIUM CHLORIDE 20 MEQ TABLET PO PRN ×3 (06:45→22:32)
[2018-03-26] MEDS: INSULIN LISPRO 100 UNIT/ML SUBCUT SCH ×4 (08:49→22:32)
[2018-03-26] MEDS ORDERED: metOLazone 5 MG TABLET PO SCH (09:00)
[2018-03-26] MEDS: ONDANSETRON 4 MG/2 ML VIAL IV PRN ×2 (09:00→16:50)
[2018-03-26] MEDS: ROSUVASTATIN 20 MG TABLET PO SCH (09:03)
[2018-03-26] MEDS: AMIODARONE 200 MG TABLET PO SCH ×2 (09:04→21:34)
[2018-03-26] MEDS: POTASSIUM CHLORIDE 20 MEQ TABLET PO SCH ×2 (09:04→21:34)
[2018-03-26] MEDS: LEVOTHYROXINE 137 MCG TABLET PO SCH (09:04)
[2018-03-26] MEDS: MIDODRINE 5 MG TABLET PO SCH ×3 (09:04→21:33)
[2018-03-26] MEDS: ASCORBIC ACID 500 MG TABLET PO SCH ×2 (09:04→21:34)
[2018-03-26] MEDS: PANTOPRAZOLE 40 MG TABLET PO SCH (09:04)
[2018-03-26] MEDS: DOCUSATE SODIUM 100 MG CAPSULE PO SCH (09:04)
[2018-03-26] MEDS: GABAPENTIN 400 MG CAPSULE PO SCH ×3 (09:04→21:33)
[2018-03-26] MEDS: LIRAGLUTIDE SUBCUT SCH (09:09)
[2018-03-26] MEDS: METOPROLOL TARTRATE 25 MG TABLET PO SCH ×2 (09:10→21:34)
[2018-03-26] MEDS: ZINC OXIDE PASTE 113 GM TUBE TOP SCH ×2 (09:13→21:37)
[2018-03-26] MEDS: POLYETHYLENE GLYCOL POWDER 17 GM PACK PO SCH (09:14)
[2018-03-26] MEDS: BUMETANIDE 1 MG/4 ML VIAL IV SCH ×2 (10:48→16:51)
[2018-03-26 12:29] LABS: Apearance,Urine CLEAR (Clear); Bilirubin,Urine Negative (Negative); Blood, Urine Negative (Negative); Glucose,Urine (UA) Negative (Negative); Hyaline Casts,Urine 11 /LPF (0-3); Ketones,Urine Negative (Negative); Nitrite,Urine Negative (Negative); Protein,Urine 30 MG/DL; RBC,Urine <1 /HPF (0-4); Squamous Epithelial Cell,Urine Occasional /HPF (0-10); Urine Color Yellow (Yellow); Urine Specific Gravity 1.015 (1.001-1.035); Urine Urobilinogen < 2.0 EU/DL (0.2-1.0); WBC,Urine 4 /HPF (0-6)
[2018-03-26] MEDS: WARFARIN 3 MG TABLET PO SCH (17:38)
[2018-03-26] MEDS: INSULIN GLARGINE 100 UNIT/ML SUBCUT SCH (22:32)
[2018-03-26] MEDS: ZALEPLON 5 MG CAPSULE PO PRN (22:32)
[2018-03-27 05:58] LABS: Osmolality,Calculated 278.5 MOS/KG (273-304); Potassium 3.4 MMOL/L (3.5-5.1)
[2018-03-27 06:21] LABS: Basophils # 0.1 10*3/uL (0.0-0.2); Basophils % 0.6 % (0.0-0.8); Eosinophils # 0.4 10*3/uL (0.0-0.87); Eosinophils % 3.6 % (0.00-10.9); Hematocrit 34.7 VOL% (35.7-47.0); Immature Granulocytes % 0.3 %; Immature Granulocytes Absolute 0.03 #; Lymphocytes # 4.6 10*3/uL (1.4-4.0); Lymphocytes % 39.6 % (21.3-54.2); Mean Corpuscular HGB Conc 29.1 GM/DL (32-36); Mean Corpuscular Hemoglobin 28 PG (27-34); Mean Corpuscular Volume 95.6 FL (87-102); Monocytes # 1.2 10*3/uL (0.11-0.8); Monocytes % 10.2 % (1.7-12.7); NRBC # 0.03 10*3/uL; Neutrophils # 5.3 10*3/uL (1.4-7.4); Neutrophils % 45.7 % (38.7-73.9); Platelet Count 257 T/CUMM (130-400); Red Blood Count 3.63 MC/CUMM (3.8-5.5); Red Cell Distribution Width 16.1 % (9.3-17.3); White Blood Count 11.6 T/CUMM (4-12)
[2018-03-27 06:24] LABS: Hemoglobin 10.1 GM/DL (12.0-16.0)
[2018-03-27] MEDS: POTASSIUM CHLORIDE 20 MEQ TABLET PO PRN (06:42)
[2018-03-27 06:43] LABS: INR 3.1
[2018-03-27 06:45] LABS: PT Patient Result 33.5 SECS
[2018-03-27] MEDS: LEVOTHYROXINE 137 MCG TABLET PO SCH (08:47)
[2018-03-27] MEDS: MIDODRINE 5 MG TABLET PO SCH ×3 (08:47→21:54)
[2018-03-27] MEDS: ROSUVASTATIN 20 MG TABLET PO SCH (08:47)
[2018-03-27] MEDS: PANTOPRAZOLE 40 MG TABLET PO SCH (08:47)
[2018-03-27] MEDS: METOPROLOL TARTRATE 25 MG TABLET PO SCH ×2 (08:48→21:54)
[2018-03-27] MEDS: AMIODARONE 200 MG TABLET PO SCH ×2 (08:48→21:56)
[2018-03-27] MEDS: ASCORBIC ACID 500 MG TABLET PO SCH ×2 (08:48→21:55)
[2018-03-27] MEDS: GABAPENTIN 400 MG CAPSULE PO SCH ×3 (08:48→22:01)
[2018-03-27] MEDS: POTASSIUM CHLORIDE 20 MEQ TABLET PO SCH ×2 (08:48→21:54)
[2018-03-27] MEDS: ZINC OXIDE PASTE 113 GM TUBE TOP SCH ×2 (08:49→22:01)
[2018-03-27] MEDS: POLYETHYLENE GLYCOL POWDER 17 GM PACK PO SCH (08:49)
[2018-03-27] MEDS: BUMETANIDE 1 MG/4 ML VIAL IV SCH (08:49)
[2018-03-27] MEDS: INSULIN LISPRO 100 UNIT/ML SUBCUT SCH ×4 (08:49→21:56)
[2018-03-27] MEDS: DOCUSATE SODIUM 100 MG CAPSULE PO SCH (08:50)
[2018-03-27] MEDS: LIRAGLUTIDE SUBCUT SCH (08:54)
[2018-03-27] MEDS: BUMETANIDE 1 MG TABLET PO SCH (15:27)
[2018-03-27] MEDS: WARFARIN 3 MG TABLET PO SCH (17:18)
[2018-03-27] MEDS: ZALEPLON 5 MG CAPSULE PO PRN (21:54)
[2018-03-27] MEDS: INSULIN GLARGINE 100 UNIT/ML SUBCUT SCH (21:56)
[2018-03-28] MEDS: ASCORBIC ACID 500 MG TABLET PO SCH ×2 (09:53→21:38)
[2018-03-28] MEDS: POLYETHYLENE GLYCOL POWDER 17 GM PACK PO SCH ×2 (09:53→09:58)
[2018-03-28] MEDS: AMIODARONE 200 MG TABLET PO SCH ×2 (09:53→21:38)
[2018-03-28] MEDS: METOPROLOL TARTRATE 25 MG TABLET PO SCH ×2 (09:53→21:38)
[2018-03-28] MEDS: LEVOTHYROXINE 137 MCG TABLET PO SCH (09:53)
[2018-03-28] MEDS: BUMETANIDE 1 MG TABLET PO SCH (09:53)
[2018-03-28] MEDS: MIDODRINE 5 MG TABLET PO SCH ×3 (09:53→21:38)
[2018-03-28] MEDS: ROSUVASTATIN 20 MG TABLET PO SCH (09:53)
[2018-03-28] MEDS: POTASSIUM CHLORIDE 20 MEQ TABLET PO PRN ×3 (09:54→17:26)
[2018-03-28] MEDS: POTASSIUM CHLORIDE 20 MEQ TABLET PO SCH ×3 (09:54→21:38)
[2018-03-28] MEDS: PANTOPRAZOLE 40 MG TABLET PO SCH (09:54)
[2018-03-28] MEDS: DOCUSATE SODIUM 100 MG CAPSULE PO SCH (09:54)
[2018-03-28] MEDS: GABAPENTIN 400 MG CAPSULE PO SCH ×3 (09:54→21:38)
[2018-03-28] MEDS: ZINC OXIDE PASTE 113 GM TUBE TOP SCH ×2 (09:55→21:38)
[2018-03-28] MEDS: INSULIN LISPRO 100 UNIT/ML SUBCUT SCH ×4 (09:55→21:37)
[2018-03-28] MEDS: LIRAGLUTIDE SUBCUT SCH (10:00)
[2018-03-28] MEDS: WARFARIN 3 MG TABLET PO SCH (17:25)
[2018-03-28] MEDS: INSULIN GLARGINE 100 UNIT/ML SUBCUT SCH (21:37)
[2018-03-28] MEDS: ZALEPLON 5 MG CAPSULE PO PRN (21:41)
[2018-03-29 03:15] LABS: Calcium 8.6 MG/DL (8.5-10.1); Osmolality,Calculated 277.8 MOS/KG (273-304); Potassium 3.6 MMOL/L (3.5-5.1)
[2018-03-29 03:53] LABS: INR 3.2
[2018-03-29 04:14] LABS: PT Patient Result 34.6 SECS
[2018-03-29] MEDS: POTASSIUM CHLORIDE 20 MEQ TABLET PO PRN ×3 (06:00→12:24)
[2018-03-29] MEDS ORDERED: BUMETANIDE 1 MG TABLET PO SCH (09:00)
[2018-03-29] MEDS: AMIODARONE 200 MG TABLET PO SCH (09:53)
[2018-03-29] MEDS: ROSUVASTATIN 20 MG TABLET PO SCH (09:53)
[2018-03-29] MEDS: ASCORBIC ACID 500 MG TABLET PO SCH (09:53)
[2018-03-29] MEDS: MIDODRINE 5 MG TABLET PO SCH (09:53)
[2018-03-29] MEDS: LEVOTHYROXINE 137 MCG TABLET PO SCH (09:53)
[2018-03-29] MEDS: GABAPENTIN 400 MG CAPSULE PO SCH (09:53)
[2018-03-29] MEDS: PANTOPRAZOLE 40 MG TABLET PO SCH (09:53)
[2018-03-29] MEDS: POTASSIUM CHLORIDE 20 MEQ TABLET PO SCH (09:53)
[2018-03-29] MEDS: DOCUSATE SODIUM 100 MG CAPSULE PO SCH (09:54)
[2018-03-29] MEDS: METOPROLOL TARTRATE 25 MG TABLET PO SCH (09:54)
[2018-03-29] MEDS: LIRAGLUTIDE SUBCUT SCH (09:59)
[2018-03-29] MEDS: INSULIN LISPRO 100 UNIT/ML SUBCUT SCH ×2 (09:59→12:24)
[2018-03-29] MEDS: ZINC OXIDE PASTE 113 GM TUBE TOP SCH (10:00)
[2018-03-29] MEDS: POLYETHYLENE GLYCOL POWDER 17 GM PACK PO SCH (10:00)
[2018-03-29 12:03] VITALS: BP 78/54
== END 2018-03-29 14:15 | disposition home health service (06) | DRG 312 ==
LOC: EDBD → EDUNIT# → N.EDINP 00:08 → N.ED 00:08 → SUATTDRO 03:49 → N.TELES 04:47 → SUATTDRO 11:20
PROVIDERS: ADMIT Internal Medicine; ATTEND Internal Medicine

== ENCOUNTER 2018-05-20 10:30 | Inpatient (IN) ==
[2018-05-20] MEDS ORDERED: DILTIAZEM 50 MG/10 ML VIAL IV STA (12:23)
[2018-05-20] MEDS ORDERED: dilTIAZem Drip 125 MG/125 ML PREMIX IV SCH (12:30)
[2018-05-20 12:39] LABS: Basophils # 0.1 10*3/uL (0.0-0.2); Basophils % 0.4 % (0.0-0.8); Eosinophils # 0.1 10*3/uL (0.0-0.87); Eosinophils % 0.6 % (0.00-10.9); Hematocrit 51.7 VOL% (35.7-47.0); Hemoglobin 15.9 GM/DL (12.0-16.0); Immature Granulocytes % 0.5 %; Immature Granulocytes Absolute 0.07 #; Lymphocytes # 4.6 10*3/uL (1.4-4.0); Lymphocytes % 32.1 % (21.3-54.2); Mean Corpuscular HGB Conc 30.8 GM/DL (32-36); Mean Corpuscular Hemoglobin 28 PG (27-34); Mean Corpuscular Volume 89.3 FL (87-102); Mean Platelet Volume 12.6 FL (9.6-12.0); Monocytes # 1.3 10*3/uL (0.11-0.8); Monocytes % 9.2 % (1.7-12.7); Neutrophils # 8.2 10*3/uL (1.4-7.4); Neutrophils % 57.2 % (38.7-73.9); Platelet Count 345 T/CUMM (130-400); Red Blood Count 5.79 MC/CUMM (3.8-5.5); Red Cell Distribution Width 15.2 % (9.3-17.3); White Blood Count 14.3 T/CUMM (4-12)
[2018-05-20 12:49] LABS: INR 3.7
[2018-05-20 12:50] LABS: PT Patient Result 39.6 SECS; Partial Thromboplastin Time 43.9 SECS (0-40)
[2018-05-20 13:21] LABS: Albumin 3.8 G/DL (3.4-5.0); Bilirubin,Total 0.7 MG/DL (0.2-1.0); Calcium 9.4 MG/DL (8.5-10.1); Osmolality,Calculated 284.8 MOS/KG (273-304); Potassium 3.3 MMOL/L (3.5-5.1); Thyroid Stimulating Hormone 0.623 uIU/ml (0.358-3.74); Total Protein 8.8 G/DL (6.4-8.3)
[2018-05-20] MEDS ORDERED: LACTULOSE 20 GM/30 ML UDCUP PO PRN (13:58)
[2018-05-20] MEDS ORDERED: DOCUSATE SODIUM 100 MG CAPSULE PO PRN (13:58)
[2018-05-20] MEDS ORDERED: MAGNESIUM SULF RIDER 4 GM in PREMIX 1 EACH IV PRN (13:58)
[2018-05-20] MEDS ORDERED: ONDANSETRON 4 MG/2 ML VIAL IV PRN (13:58)
[2018-05-20] MEDS ORDERED: PROMETHAZINE 25 MG TABLET PO PRN (13:58)
[2018-05-20] MEDS ORDERED: ACETAMINOPHEN 325 MG TABLET PO PRN (13:58)
[2018-05-20] MEDS ORDERED: diphenhydrAMINE CAP 25 MG CAPSULE PO PRN (13:58)
[2018-05-20] MEDS ORDERED: MAGNESIUM SULF RIDER 2 GM in PREMIX 1 EACH IV PRN (13:58)
[2018-05-20] MEDS ORDERED: POTASSIUM CHLORIDE 20 MEQ TABLET PO PRN (13:58)
[2018-05-20] MEDS ORDERED: guaiFENesin/DM ER 600-30 MG TABLET PO PRN (13:58)
[2018-05-20] MEDS ORDERED: ZALEPLON 5 MG CAPSULE PO PRN (13:58)
[2018-05-20] MEDS ORDERED: AMIODARONE INJ 150 MG in DEXTROSE 5% 100 ML IV ONE (14:01)
[2018-05-20] MEDS ORDERED: DIGOXIN 0.5 MG/2 ML AMP IV ONE (14:01)
[2018-05-20 14:40] LABS: Apearance,Urine Slightly Hazy (Clear); Bilirubin,Urine Negative (Negative); Blood, Urine Negative (Negative); Glucose,Urine (UA) 150 mg/dL (Negative); Hyaline Casts,Urine 3 /LPF (0-3); Ketones,Urine 5 mg/dL (Negative); Mucus,Urine Occasional /LPF (Occasional); Nitrite,Urine Negative (Negative); Protein,Urine >=500 MG/DL; RBC,Urine 3 /HPF (0-4); Squamous Epithelial Cell,Urine Occasional /HPF (0-10); Urine Color Yellow (Yellow); Urine Specific Gravity 1.023 (1.001-1.035); Urine Urobilinogen < 2.0 EU/DL (0.2-1.0); WBC,Urine 12 /HPF (0-6)
[2018-05-20] MEDS ORDERED: metOLazone 5 MG TABLET PO PRN (14:47)
[2018-05-20 14:57] LABS: Barbiturates Screen,Urine Negative (Negative); Benzodiazepines Screen,Urine Negative (Negative); Cannabinoid Screen,Urine Negative (Negative); Opiate Screen,Urine Negative (Negative); Phencyclidine Screen,Urine Negative (Negative)
[2018-05-20] MEDS ORDERED: AMIODARONE INJ 450 MG in DEXTROSE 5% 241 ML IV SCH (15:00)
[2018-05-20] MEDS: SODIUM CHLOR 0.9% KCL 20 MEQ 20 MEQ/1,000 ML BAG IV SCH (16:07)
[2018-05-20] MEDS: DIGOXIN 0.25 MG TABLET PO SCH (16:35)
[2018-05-20] MEDS: INSULIN REGULAR 100 UNIT/ML SUBCUT SCH (17:02)
[2018-05-20] MEDS: ASCORBIC ACID 500 MG TABLET PO SCH (21:33)
[2018-05-20] MEDS: BUMETANIDE 1 MG TABLET PO SCH (21:33)
[2018-05-20] MEDS: POTASSIUM CHLORIDE 20 MEQ TABLET PO SCH (21:33)
[2018-05-20] MEDS: MIDODRINE 5 MG TABLET PO SCH (21:33)
[2018-05-20] MEDS: INSULIN GLARGINE 100 UNIT/ML SUBCUT SCH (21:34)
[2018-05-20] MEDS: AMIODARONE INJ 450 MG in DEXTROSE 5% 241 ML IV SCH (21:35)
[2018-05-21] MEDS: INSULIN REGULAR 100 UNIT/ML SUBCUT SCH ×5 (00:08→23:08)
[2018-05-21] MEDS: METOPROLOL TARTRATE 25 MG TABLET PO SCH ×3 (00:08→23:02)
[2018-05-21] MEDS: SODIUM CHLOR 0.9% KCL 20 MEQ 20 MEQ/1,000 ML BAG IV SCH ×3 (00:59→19:46)
[2018-05-21 04:50] LABS: Basophils # 0.1 10*3/uL (0.0-0.2); Basophils % 0.8 % (0.0-0.8); Eosinophils # 0.3 10*3/uL (0.0-0.87); Eosinophils % 3.2 % (0.00-10.9); Hematocrit 45.1 VOL% (35.7-47.0); Hemoglobin 13.9 GM/DL (12.0-16.0); Immature Granulocytes % 0.2 %; Immature Granulocytes Absolute 0.02 #; Lymphocytes # 4.2 10*3/uL (1.4-4.0); Lymphocytes % 40.9 % (21.3-54.2); Mean Corpuscular HGB Conc 30.8 GM/DL (32-36); Mean Corpuscular Hemoglobin 28 PG (27-34); Mean Corpuscular Volume 89.1 FL (87-102); Mean Platelet Volume 12.2 FL (9.6-12.0); Monocytes # 1.2 10*3/uL (0.11-0.8); Monocytes % 11.7 % (1.7-12.7); Neutrophils # 4.5 10*3/uL (1.4-7.4); Neutrophils % 43.2 % (38.7-73.9); Platelet Count 285 T/CUMM (130-400); Red Blood Count 5.06 MC/CUMM (3.8-5.5); Red Cell Distribution Width 15.4 % (9.3-17.3); White Blood Count 10.3 T/CUMM (4-12)
[2018-05-21 04:56] LABS: INR 3.5
[2018-05-21 05:03] LABS: Calcium 8.6 MG/DL (8.5-10.1); Osmolality,Calculated 287.1 MOS/KG (273-304); Potassium 3.4 MMOL/L (3.5-5.1)
[2018-05-21 05:08] LABS: Blood Urea Nitrogen 38 MG/DL (7-18); Calcium 8.8 MG/DL (8.5-10.1); Glucose 266 MG/DL (74-106); Potassium 3.4 MMOL/L (3.5-5.1); Sodium 136 MMOL/L (136-145); Troponin I 0.036 NG/ML (0.00-0.045)
[2018-05-21] MEDS: ROSUVASTATIN 20 MG TABLET PO SCH (08:46)
[2018-05-21] MEDS: MIDODRINE 5 MG TABLET PO SCH ×2 (08:46→23:03)
[2018-05-21] MEDS: BUMETANIDE 1 MG TABLET PO SCH ×2 (08:46→23:02)
[2018-05-21] MEDS: LEVOTHYROXINE 137 MCG TABLET PO SCH (08:46)
[2018-05-21] MEDS: ASCORBIC ACID 500 MG TABLET PO SCH ×2 (08:46→23:03)
[2018-05-21] MEDS: POTASSIUM CHLORIDE 20 MEQ TABLET PO SCH ×2 (08:46→23:04)
[2018-05-21] MEDS: FERROUS SULFATE 325 MG TABLET PO SCH (08:47)
[2018-05-21] MEDS: PANTOPRAZOLE 40 MG TABLET PO SCH (08:47)
[2018-05-21] MEDS: AMIODARONE 200 MG TABLET PO SCH (08:47)
[2018-05-21] MEDS ORDERED: NON-FORMULARY MEDICATION (Liraglutide [Victoza 3-Pak] 1.8 MG) SUBCUT SCH (09:00)
[2018-05-21] MEDS ORDERED: metOLazone 5 MG TABLET PO SCH (09:00)
[2018-05-21] MEDS: DIGOXIN 0.25 MG TABLET PO SCH (12:32)
[2018-05-21] MEDS: AMIODARONE INJ 450 MG in DEXTROSE 5% 241 ML IV SCH (13:10)
[2018-05-21 14:53] LABS: Protein/Creatinine Ratio,Urine 1.5 RATIO
[2018-05-21 15:04] LABS: Microalbum Ur Quant Random 38.2 MG/L (0-20)
[2018-05-21] MEDS ORDERED: WARFARIN 5 MG TABLET PO SCH (18:00)
[2018-05-21] MEDS: INSULIN GLARGINE 100 UNIT/ML SUBCUT SCH (23:08)
[2018-05-22 05:19] LABS: INR 3.1
[2018-05-22 05:22] LABS: PT Patient Result 33.3 SECS
[2018-05-22 05:25] LABS: Calcium 8.3 MG/DL (8.5-10.1); Osmolality,Calculated 286.8 MOS/KG (273-304); Potassium 3.1 MMOL/L (3.5-5.1)
[2018-05-22] MEDS: SODIUM CHLOR 0.9% KCL 20 MEQ 20 MEQ/1,000 ML BAG IV SCH (05:54)
[2018-05-22] MEDS ORDERED: POTASSIUM CHLORIDE 20 MEQ TABLET PO ONE ×2 (06:49→07:23)
[2018-05-22 07:08] LABS: Basophils # 0.1 10*3/uL (0.0-0.2); Basophils % 0.8 % (0.0-0.8); Eosinophils # 0.6 10*3/uL (0.0-0.87); Eosinophils % 4.8 % (0.00-10.9); Hematocrit 43.9 VOL% (35.7-47.0); Immature Granulocytes % 0.3 %; Immature Granulocytes Absolute 0.04 #; Lymphocytes # 4.1 10*3/uL (1.4-4.0); Lymphocytes % 32.6 % (21.3-54.2); Mean Corpuscular HGB Conc 29.6 GM/DL (32-36); Mean Corpuscular Hemoglobin 27 PG (27-34); Mean Corpuscular Volume 92.2 FL (87-102); Mean Platelet Volume 12.3 FL (9.6-12.0); Monocytes # 1.3 10*3/uL (0.11-0.8); Monocytes % 10.5 % (1.7-12.7); Neutrophils # 6.5 10*3/uL (1.4-7.4); Platelet Count 274 T/CUMM (130-400); Red Blood Count 4.76 MC/CUMM (3.8-5.5); Red Cell Distribution Width 15.2 % (9.3-17.3); White Blood Count 12.6 T/CUMM (4-12)
[2018-05-22] MEDS ORDERED: SODIUM CHLORIDE 0.9% 1,000 ML IV SCH (07:30)
[2018-05-22] MEDS ORDERED: PROPOFOL 200 MG/20 ML VIAL IV ONE (08:33)
[2018-05-22] MEDS ORDERED: PHENYLEPHRINE 1 MG/10 ML SYRINGE IV ONE (08:33)
[2018-05-22] MEDS: PANTOPRAZOLE 40 MG TABLET PO SCH (09:31)
[2018-05-22] MEDS: ASCORBIC ACID 500 MG TABLET PO SCH (09:34)
[2018-05-22] MEDS: FERROUS SULFATE 325 MG TABLET PO SCH (09:34)
[2018-05-22] MEDS: POTASSIUM CHLORIDE 20 MEQ TABLET PO SCH (09:34)
[2018-05-22] MEDS: METOPROLOL TARTRATE 25 MG TABLET PO SCH (09:35)
[2018-05-22] MEDS: BUMETANIDE 1 MG TABLET PO SCH (09:35)
[2018-05-22] MEDS: MIDODRINE 5 MG TABLET PO SCH (09:35)
[2018-05-22] MEDS: ROSUVASTATIN 20 MG TABLET PO SCH (09:35)
[2018-05-22] MEDS: AMIODARONE 200 MG TABLET PO SCH (09:35)
[2018-05-22] MEDS: LEVOTHYROXINE 137 MCG TABLET PO SCH (09:35)
[2018-05-22] MEDS: INSULIN REGULAR 100 UNIT/ML SUBCUT SCH ×2 (09:36→12:30)
[2018-05-22 11:46] VITALS: BP 144/80
[2018-05-22] MEDS: DIGOXIN 0.25 MG TABLET PO SCH (13:29)
[2018-05-22] MEDS ORDERED: GLIMEPIRIDE 4 MG TABLET PO SCH (17:00)
== END 2018-05-22 15:45 | disposition home or self-care (01) | DRG 309 ==
LOC: N.ED 10:30 → N.EDINP 13:58 → N.TELEN 15:40
PROVIDERS: ADMIT Internal Medicine Cardiovascular Disease; ATTEND Internal Medicine Cardiovascular Disease

== ENCOUNTER 2018-06-02 18:32 | Inpatient (IN) ==
[2018-06-02 19:58] LABS: Basophils # 0.1 10*3/uL (0.0-0.2); Basophils % 0.8 % (0.0-0.8); Eosinophils # 0.2 10*3/uL (0.0-0.87); Eosinophils % 1.4 % (0.00-10.9); Hematocrit 49.8 VOL% (35.7-47.0); Hemoglobin 15.4 GM/DL (12.0-16.0); Immature Granulocytes % 0.4 %; Immature Granulocytes Absolute 0.05 #; Lymphocytes # 3.9 10*3/uL (1.4-4.0); Lymphocytes % 29.9 % (21.3-54.2); Mean Corpuscular HGB Conc 30.9 GM/DL (32-36); Mean Corpuscular Hemoglobin 28 PG (27-34); Mean Corpuscular Volume 88.9 FL (87-102); Mean Platelet Volume 11.2 FL (9.6-12.0); Monocytes # 1.5 10*3/uL (0.11-0.8); Monocytes % 11.5 % (1.7-12.7); Neutrophils # 7.3 10*3/uL (1.4-7.4); Platelet Count 344 T/CUMM (130-400); Red Cell Distribution Width 15.1 % (9.3-17.3); White Blood Count 13.1 T/CUMM (4-12)
[2018-06-02 20:07] LABS: INR 3.7
[2018-06-02 20:11] LABS: PT Patient Result 40.1 SECS
[2018-06-02 21:00] LABS: Albumin 3.6 G/DL (3.4-5.0); Bilirubin,Total 0.5 MG/DL (0.2-1.0); Calcium 9.3 MG/DL (8.5-10.1); Osmolality,Calculated 291.2 MOS/KG (273-304); Potassium 3.6 MMOL/L (3.5-5.1)
[2018-06-02] MEDS ORDERED: ONDANSETRON 4 MG/2 ML VIAL IV PRN (23:18)
[2018-06-03] MEDS: DEXTROSE 5% NACL 0.45% 1,000 ML IV SCH ×3 (00:36→21:34)
[2018-06-03 02:23] LABS: Albumin 3.1 G/DL (3.4-5.0); Bilirubin,Total 0.5 MG/DL (0.2-1.0); Osmolality,Calculated 286.4 MOS/KG (273-304); Potassium 2.9 MMOL/L (3.5-5.1); Total Protein 7.8 G/DL (6.4-8.3)
[2018-06-03 02:32] LABS: Basophils # 0.1 10*3/uL (0.0-0.2); Basophils % 0.8 % (0.0-0.8); Eosinophils # 0.2 10*3/uL (0.0-0.87); Eosinophils % 1.7 % (0.00-10.9); Hematocrit 46.2 VOL% (35.7-47.0); Hemoglobin 14.1 GM/DL (12.0-16.0); Immature Granulocytes % 0.6 %; Immature Granulocytes Absolute 0.08 #; Lymphocytes # 4.3 10*3/uL (1.4-4.0); Lymphocytes % 30.4 % (21.3-54.2); Mean Corpuscular HGB Conc 30.5 GM/DL (32-36); Mean Corpuscular Hemoglobin 27 PG (27-34); Mean Corpuscular Volume 89.2 FL (87-102); Mean Platelet Volume 11.9 FL (9.6-12.0); Monocytes # 1.9 10*3/uL (0.11-0.8); Monocytes % 13.4 % (1.7-12.7); Neutrophils # 7.5 10*3/uL (1.4-7.4); Neutrophils % 53.1 % (38.7-73.9); Platelet Count 348 T/CUMM (130-400); Red Blood Count 5.18 MC/CUMM (3.8-5.5); Red Cell Distribution Width 15.2 % (9.3-17.3); White Blood Count 14.1 T/CUMM (4-12)
[2018-06-03] MEDS ORDERED: POTASSIUM CHLORIDE 20 MEQ TABLET PO ONE (07:46)
[2018-06-03] MEDS ORDERED: ONDANSETRON 4 MG TABLET PO PRN (07:47)
[2018-06-03] MEDS ORDERED: BENZONATATE 100 MG CAPSULE PO PRN (07:47)
[2018-06-03] MEDS: MIDODRINE 5 MG TABLET PO SCH ×2 (08:39→21:35)
[2018-06-03] MEDS: ROSUVASTATIN 20 MG TABLET PO SCH (08:40)
[2018-06-03] MEDS: LEVOTHYROXINE 137 MCG TABLET PO SCH (08:40)
[2018-06-03] MEDS: ACETAMINOPHEN 325 MG TABLET PO PRN ×2 (08:40→14:15)
[2018-06-03] MEDS: MAGNESIUM HYDROXIDE SUSP 30 ML UDCUP PO PRN (08:42)
[2018-06-03] MEDS ORDERED: metOLazone 5 MG TABLET PO SCH (09:00)
[2018-06-03] MEDS ORDERED: PANTOPRAZOLE 40 MG TABLET PO SCH ×2 (09:00)
[2018-06-03] MEDS ORDERED: BUMETANIDE 1 MG TABLET PO SCH (09:00)
[2018-06-03] MEDS: POTASSIUM CHLORIDE 20 MEQ TABLET PO PRN ×2 (10:40→14:03)
[2018-06-03] MEDS: GLIMEPIRIDE 4 MG TABLET PO SCH ×2 (11:50→16:27)
[2018-06-03] MEDS ORDERED: GLUCAGON 1 MG VIAL IM PRN (12:19)
[2018-06-03] MEDS ORDERED: DEXTROSE 50% 25 GM/50 ML SYRINGE IV PRN (12:19)
[2018-06-03] MEDS ORDERED: INSULIN REGULAR 100 UNIT/ML ONE (12:24)
[2018-06-03] MEDS: INSULIN REGULAR 100 UNIT/ML SUBCUT SCH ×3 (12:25→21:39)
[2018-06-03 14:21] LABS: INR 3.6
[2018-06-03 14:24] LABS: Calcium 8.9 MG/DL (8.5-10.1); Osmolality,Calculated 285.7 MOS/KG (273-304); Potassium 3.2 MMOL/L (3.5-5.1)
[2018-06-03 20:36] LABS: Apearance,Urine CLEAR (Clear); Bilirubin,Urine Negative (Negative); Blood, Urine Negative (Negative); Glucose,Urine (UA) >=500 mg/dL (Negative); Hyaline Casts,Urine 4 /LPF (0-3); Ketones,Urine Negative (Negative); Mucus,Urine Occasional /LPF (Occasional); Nitrite,Urine Negative (Negative); Protein,Urine Negative; RBC,Urine 3 /HPF (0-4); Squamous Epithelial Cell,Urine Occasional /HPF (0-10); Urine Color Yellow (Yellow); Urine Specific Gravity 1.013 (1.001-1.035); Urine Urobilinogen < 2.0 EU/DL (0.2-1.0); WBC,Urine 2 /HPF (0-6)
[2018-06-03] MEDS: INSULIN GLARGINE 100 UNIT/ML SUBCUT SCH (21:35)
[2018-06-04 06:35] LABS: Calcium 8.4 MG/DL (8.5-10.1); Osmolality,Calculated 280.2 MOS/KG (273-304)
[2018-06-04 06:38] LABS: Basophils # 0.1 10*3/uL (0.0-0.2); Basophils % 0.6 % (0.0-0.8); Eosinophils # 0.4 10*3/uL (0.0-0.87); Eosinophils % 2.6 % (0.00-10.9); Hematocrit 43.7 VOL% (35.7-47.0); Hemoglobin 13.2 GM/DL (12.0-16.0); Immature Granulocytes % 0.4 %; Immature Granulocytes Absolute 0.05 #; Lymphocytes # 3.9 10*3/uL (1.4-4.0); Lymphocytes % 27.8 % (21.3-54.2); Mean Corpuscular HGB Conc 30.2 GM/DL (32-36); Mean Corpuscular Hemoglobin 27 PG (27-34); Mean Corpuscular Volume 90.1 FL (87-102); Monocytes # 1.8 10*3/uL (0.11-0.8); Monocytes % 12.5 % (1.7-12.7); Neutrophils # 7.9 10*3/uL (1.4-7.4); Neutrophils % 56.1 % (38.7-73.9); Platelet Count 304 T/CUMM (130-400); Red Blood Count 4.85 MC/CUMM (3.8-5.5); Red Cell Distribution Width 15.3 % (9.3-17.3)
[2018-06-04] MEDS: POTASSIUM CHLORIDE 20 MEQ TABLET PO PRN (06:46)
[2018-06-04] MEDS: DEXTROSE 5% NACL 0.45% 1,000 ML IV SCH (06:48)
[2018-06-04 07:29] LABS: INR 3.6
[2018-06-04 07:31] LABS: PT Patient Result 38.8 SECS
[2018-06-04] MEDS ORDERED: BUMETANIDE 1 MG TABLET PO SCH (09:00)
[2018-06-04] MEDS: NF- (Liraglutide [Victoza 3-Pak] 1.8 MG) SUBCUT SCH (09:32)
[2018-06-04] MEDS: GLIMEPIRIDE 4 MG TABLET PO SCH ×2 (09:34→16:48)
[2018-06-04] MEDS: POTASSIUM CHLORIDE 20 MEQ TABLET PO SCH ×2 (09:34→21:11)
[2018-06-04] MEDS: LEVOTHYROXINE 137 MCG TABLET PO SCH (09:35)
[2018-06-04] MEDS: PANTOPRAZOLE 40 MG TABLET PO SCH ×2 (09:35→21:11)
[2018-06-04] MEDS: ROSUVASTATIN 20 MG TABLET PO SCH (09:35)
[2018-06-04] MEDS: MIDODRINE 5 MG TABLET PO SCH ×2 (09:43→21:11)
[2018-06-04] MEDS: INSULIN REGULAR 100 UNIT/ML SUBCUT SCH ×4 (09:43→21:19)
[2018-06-04] MEDS ORDERED: POTASSIUM CHLORIDE 20 MEQ TABLET PO ONE (12:53)
[2018-06-04] MEDS: IBUPROFEN 400 MG TABLET PO PRN (13:45)
[2018-06-04] MEDS: INSULIN GLARGINE 100 UNIT/ML SUBCUT SCH (21:10)
[2018-06-05 05:23] LABS: Basophils # 0.1 10*3/uL (0.0-0.2); Basophils % 0.7 % (0.0-0.8); Eosinophils # 0.7 10*3/uL (0.0-0.87); Eosinophils % 5.5 % (0.00-10.9); Hematocrit 41.3 VOL% (35.7-47.0); Hemoglobin 12.5 GM/DL (12.0-16.0); Immature Granulocytes % 0.3 %; Immature Granulocytes Absolute 0.04 #; Lymphocytes # 4.5 10*3/uL (1.4-4.0); Lymphocytes % 36.7 % (21.3-54.2); Mean Corpuscular HGB Conc 30.3 GM/DL (32-36); Mean Corpuscular Hemoglobin 28 PG (27-34); Mean Corpuscular Volume 90.8 FL (87-102); Monocytes # 1.4 10*3/uL (0.11-0.8); Monocytes % 11.6 % (1.7-12.7); Neutrophils # 5.5 10*3/uL (1.4-7.4); Neutrophils % 45.2 % (38.7-73.9); Platelet Count 284 T/CUMM (130-400); Red Blood Count 4.55 MC/CUMM (3.8-5.5); Red Cell Distribution Width 15.4 % (9.3-17.3); White Blood Count 12.1 T/CUMM (4-12)
[2018-06-05 05:54] LABS: Calcium 8.5 MG/DL (8.5-10.1); INR 2.9; Osmolality,Calculated 272.1 MOS/KG (273-304); Potassium 3.3 MMOL/L (3.5-5.1)
[2018-06-05 06:09] LABS: PT Patient Result 31.6 SECS
[2018-06-05] MEDS: INSULIN REGULAR 100 UNIT/ML SUBCUT SCH ×4 (08:06→21:54)
[2018-06-05] MEDS: GLIMEPIRIDE 4 MG TABLET PO SCH ×2 (08:06→16:47)
[2018-06-05] MEDS: NF- (Liraglutide [Victoza 3-Pak] 1.8 MG) SUBCUT SCH (08:07)
[2018-06-05] MEDS ORDERED: metOLazone 5 MG TABLET PO SCH (09:00)
[2018-06-05] MEDS: MIDODRINE 5 MG TABLET PO SCH ×2 (09:20→21:50)
[2018-06-05] MEDS: ROSUVASTATIN 20 MG TABLET PO SCH (09:20)
[2018-06-05] MEDS: PANTOPRAZOLE 40 MG TABLET PO SCH ×2 (09:21→21:51)
[2018-06-05] MEDS: POTASSIUM CHLORIDE 20 MEQ TABLET PO SCH ×2 (09:21→21:51)
[2018-06-05] MEDS: LEVOTHYROXINE 137 MCG TABLET PO SCH (09:22)
[2018-06-05] MEDS: MAGNESIUM HYDROXIDE SUSP 30 ML UDCUP PO PRN (09:25)
[2018-06-05] MEDS ORDERED: POTASSIUM CHLORIDE 20 MEQ TABLET PO ONE (12:00)
[2018-06-05] MEDS: INSULIN GLARGINE 100 UNIT/ML SUBCUT SCH (21:52)
[2018-06-06] MEDS: IBUPROFEN 400 MG TABLET PO PRN (01:52)
[2018-06-06 04:38] LABS: INR 2.2
[2018-06-06 04:48] LABS: PT Patient Result 23.3 SECS
[2018-06-06 04:51] LABS: Calcium 8.2 MG/DL (8.5-10.1); Osmolality,Calculated 273.2 MOS/KG (273-304); Potassium 4.7 MMOL/L (3.5-5.1)
[2018-06-06 05:10] LABS: Basophils # 0.1 10*3/uL (0.0-0.2); Basophils % 0.5 % (0.0-0.8); Eosinophils # 0.5 10*3/uL (0.0-0.87); Eosinophils % 3.7 % (0.00-10.9); Hematocrit 42.4 VOL% (35.7-47.0); Immature Granulocytes % 0.5 %; Immature Granulocytes Absolute 0.06 #; Lymphocytes # 3.5 10*3/uL (1.4-4.0); Lymphocytes % 26.1 % (21.3-54.2); Mean Corpuscular HGB Conc 31.1 GM/DL (32-36); Mean Corpuscular Hemoglobin 28 PG (27-34); Mean Corpuscular Volume 89.3 FL (87-102); Mean Platelet Volume 12.3 FL (9.6-12.0); Monocytes # 1.4 10*3/uL (0.11-0.8); Monocytes % 10.7 % (1.7-12.7); Neutrophils # 7.7 10*3/uL (1.4-7.4); Neutrophils % 58.5 % (38.7-73.9); Platelet Count 268 T/CUMM (130-400); Red Blood Count 4.75 MC/CUMM (3.8-5.5); Red Cell Distribution Width 15.6 % (9.3-17.3); White Blood Count 13.2 T/CUMM (4-12)
[2018-06-06 05:11] LABS: Hemoglobin 13.2 GM/DL (12.0-16.0)
[2018-06-06] MEDS: PANTOPRAZOLE 40 MG TABLET PO SCH ×2 (08:35→21:03)
[2018-06-06] MEDS: LEVOTHYROXINE 137 MCG TABLET PO SCH (08:35)
[2018-06-06] MEDS: MIDODRINE 5 MG TABLET PO SCH (08:35)
[2018-06-06] MEDS: ROSUVASTATIN 20 MG TABLET PO SCH (08:35)
[2018-06-06] MEDS: INSULIN REGULAR 100 UNIT/ML SUBCUT SCH ×4 (08:37→21:05)
[2018-06-06] MEDS: POTASSIUM CHLORIDE 20 MEQ TABLET PO SCH ×2 (08:37→21:02)
[2018-06-06] MEDS ORDERED: MIDAZOLAM 2 MG/2 ML VIAL ONE ×2 (10:32→11:05)
[2018-06-06] MEDS ORDERED: LIDOCAINE 1% 20 ML VIAL ONE (10:32)
[2018-06-06] MEDS ORDERED: fentaNYL 100 MCG/2 ML VIAL ONE ×2 (10:32→11:06)
[2018-06-06] MEDS ORDERED: ceFAZolin 1,000 MG VIAL ONE (10:38)
[2018-06-06] MEDS ORDERED: HEPARIN/NACL 0.9% 2 UNITS/ML 500 ML IV ONE (10:39)
[2018-06-06] MEDS ORDERED: TISSUE ADHESIVE 1 EACH APPLICATOR TOP ONE (10:55)
[2018-06-06] MEDS ORDERED: DEXTROSE 50% 25 GM/50 ML SYRINGE IV PRN (11:57)
[2018-06-06] MEDS ORDERED: GLUCAGON 1 MG VIAL IM PRN (11:57)
[2018-06-06] MEDS ORDERED: oxyCODONE/ACETAMINOPHEN 5-325 MG TABLET PO PRN (11:57)
[2018-06-06] MEDS ORDERED: ACETAMINOPHEN 325 MG TABLET PO PRN (11:57)
[2018-06-06] MEDS: METOPROLOL SUCCINATE XL 25 MG TABLET PO SCH (12:55)
[2018-06-06] MEDS: GLIMEPIRIDE 4 MG TABLET PO SCH (17:07)
[2018-06-06] MEDS ORDERED: WARFARIN 5 MG TABLET PO SCH (18:00)
[2018-06-06] MEDS: ceFAZolin 1,000 MG in SYRINGE 1 EACH IV SCH (18:03)
[2018-06-06] MEDS: INSULIN GLARGINE 100 UNIT/ML SUBCUT SCH (20:59)
[2018-06-07] MEDS: ceFAZolin 1,000 MG in SYRINGE 1 EACH IV SCH (01:54)
[2018-06-07 05:07] LABS: INR 1.8; PT Patient Result 19.7 SECS
[2018-06-07 05:20] LABS: Calcium 9.1 MG/DL (8.5-10.1); Osmolality,Calculated 273.1 MOS/KG (273-304); Potassium 5.4 MMOL/L (3.5-5.1)
[2018-06-07 05:27] LABS: Calcium 8.9 MG/DL (8.5-10.1); Osmolality,Calculated 271.2 MOS/KG (273-304); Potassium 5.3 MMOL/L (3.5-5.1)
[2018-06-07 05:28] LABS: Basophils # 0.1 10*3/uL (0.0-0.2); Basophils % 0.5 % (0.0-0.8); Eosinophils # 0.5 10*3/uL (0.0-0.87); Eosinophils % 3.4 % (0.00-10.9); Hematocrit 45.4 VOL% (35.7-47.0); Hemoglobin 13.4 GM/DL (12.0-16.0); Immature Granulocytes % 0.5 %; Immature Granulocytes Absolute 0.08 #; Lymphocytes # 4.7 10*3/uL (1.4-4.0); Lymphocytes % 30.8 % (21.3-54.2); Mean Corpuscular HGB Conc 29.5 GM/DL (32-36); Mean Corpuscular Hemoglobin 27 PG (27-34); Mean Corpuscular Volume 92.7 FL (87-102); Mean Platelet Volume 12.6 FL (9.6-12.0); Monocytes # 1.2 10*3/uL (0.11-0.8); Neutrophils # 8.8 10*3/uL (1.4-7.4); Neutrophils % 56.8 % (38.7-73.9); Platelet Count 289 T/CUMM (130-400); Red Cell Distribution Width 15.9 % (9.3-17.3); White Blood Count 15.4 T/CUMM (4-12)
[2018-06-07] MEDS: ROSUVASTATIN 20 MG TABLET PO SCH (08:58)
[2018-06-07] MEDS: LEVOTHYROXINE 137 MCG TABLET PO SCH (08:58)
[2018-06-07] MEDS: METOPROLOL SUCCINATE XL 25 MG TABLET PO SCH (08:59)
[2018-06-07] MEDS: GLIMEPIRIDE 4 MG TABLET PO SCH ×2 (08:59→16:37)
[2018-06-07] MEDS: PANTOPRAZOLE 40 MG TABLET PO SCH ×2 (08:59→20:57)
[2018-06-07] MEDS: INSULIN REGULAR 100 UNIT/ML SUBCUT SCH ×4 (09:00→20:51)
[2018-06-07] MEDS: NF- (Liraglutide [Victoza 3-Pak] 1.8 MG) SUBCUT SCH (09:01)
[2018-06-07] MEDS: POTASSIUM CHLORIDE 20 MEQ TABLET PO SCH ×2 (09:01→20:49)
[2018-06-07] MEDS: ENOXAPARIN 100 MG/ML SYRINGE SUBCUT SCH (15:10)
[2018-06-07] MEDS: WARFARIN 7.5 MG TABLET PO SCH (17:38)
[2018-06-07] MEDS: INSULIN GLARGINE 100 UNIT/ML SUBCUT SCH (20:50)
[2018-06-08] MEDS: ENOXAPARIN 100 MG/ML SYRINGE SUBCUT SCH ×2 (01:45→14:44)
[2018-06-08 08:13] LABS: INR 1.9
[2018-06-08 08:19] LABS: PT Patient Result 20.7 SECS
[2018-06-08] MEDS: LEVOTHYROXINE 137 MCG TABLET PO SCH (09:21)
[2018-06-08] MEDS: INSULIN REGULAR 100 UNIT/ML SUBCUT SCH ×4 (09:21→20:30)
[2018-06-08] MEDS: ROSUVASTATIN 20 MG TABLET PO SCH (09:21)
[2018-06-08] MEDS: METOPROLOL SUCCINATE XL 25 MG TABLET PO SCH (09:21)
[2018-06-08] MEDS: PANTOPRAZOLE 40 MG TABLET PO SCH ×2 (09:22→20:31)
[2018-06-08] MEDS: NF- (Liraglutide [Victoza 3-Pak] 1.8 MG) SUBCUT SCH (09:22)
[2018-06-08] MEDS: GLIMEPIRIDE 4 MG TABLET PO SCH ×2 (09:22→16:20)
[2018-06-08] MEDS: WARFARIN 7.5 MG TABLET PO SCH (17:19)
[2018-06-08] MEDS: INSULIN GLARGINE 100 UNIT/ML SUBCUT SCH (20:30)
[2018-06-09] MEDS: ENOXAPARIN 100 MG/ML SYRINGE SUBCUT SCH ×2 (02:19→17:11)
[2018-06-09 02:59] LABS: INR 2.1
[2018-06-09 03:06] LABS: Calcium 8.6 MG/DL (8.5-10.1); Osmolality,Calculated 274.7 MOS/KG (273-304); Potassium 5.3 MMOL/L (3.5-5.1)
[2018-06-09 03:07] LABS: PT Patient Result 23.1 SECS
[2018-06-09] MEDS: INSULIN REGULAR 100 UNIT/ML SUBCUT SCH ×4 (07:46→21:25)
[2018-06-09] MEDS: PANTOPRAZOLE 40 MG TABLET PO SCH ×2 (08:45→21:34)
[2018-06-09] MEDS: GLIMEPIRIDE 4 MG TABLET PO SCH ×2 (08:45→17:12)
[2018-06-09] MEDS: METOPROLOL SUCCINATE XL 25 MG TABLET PO SCH (08:45)
[2018-06-09] MEDS: LEVOTHYROXINE 137 MCG TABLET PO SCH (08:45)
[2018-06-09] MEDS: ROSUVASTATIN 20 MG TABLET PO SCH (08:45)
[2018-06-09] MEDS: NF- (Liraglutide [Victoza 3-Pak] 1.8 MG) SUBCUT SCH (08:47)
[2018-06-09] MEDS: WARFARIN 7.5 MG TABLET PO SCH (17:13)
[2018-06-09] MEDS: INSULIN GLARGINE 100 UNIT/ML SUBCUT SCH (21:38)
[2018-06-10 02:36] LABS: Basophils # 0.1 10*3/uL (0.0-0.2); Basophils % 0.6 % (0.0-0.8); Eosinophils # 0.6 10*3/uL (0.0-0.87); Eosinophils % 5.2 % (0.00-10.9); Hematocrit 38.1 VOL% (35.7-47.0); Hemoglobin 11.5 GM/DL (12.0-16.0); Immature Granulocytes % 0.5 %; Immature Granulocytes Absolute 0.06 #; Lymphocytes # 3.9 10*3/uL (1.4-4.0); Lymphocytes % 32.1 % (21.3-54.2); Mean Corpuscular HGB Conc 30.2 GM/DL (32-36); Mean Corpuscular Hemoglobin 27 PG (27-34); Mean Corpuscular Volume 90.9 FL (87-102); Mean Platelet Volume 11.2 FL (9.6-12.0); Monocytes # 1.4 10*3/uL (0.11-0.8); Monocytes % 11.7 % (1.7-12.7); Neutrophils # 6.1 10*3/uL (1.4-7.4); Neutrophils % 49.9 % (38.7-73.9); Platelet Count 275 T/CUMM (130-400); Red Blood Count 4.19 MC/CUMM (3.8-5.5); Red Cell Distribution Width 16.1 % (9.3-17.3); White Blood Count 12.3 T/CUMM (4-12)
[2018-06-10 02:48] LABS: INR 2.5
[2018-06-10 02:49] LABS: PT Patient Result 27.4 SECS
[2018-06-10 03:16] LABS: Calcium 8.8 MG/DL (8.5-10.1); Osmolality,Calculated 277.5 MOS/KG (273-304)
[2018-06-10] MEDS: ENOXAPARIN 100 MG/ML SYRINGE SUBCUT SCH (06:21)
[2018-06-10] MEDS: INSULIN REGULAR 100 UNIT/ML SUBCUT SCH ×2 (07:28→12:35)
[2018-06-10] MEDS ORDERED: WARFARIN 5 MG TABLET PO SCH (07:36)
[2018-06-10] MEDS: NF- (Liraglutide [Victoza 3-Pak] 1.8 MG) SUBCUT SCH (09:31)
[2018-06-10] MEDS: GLIMEPIRIDE 4 MG TABLET PO SCH (09:32)
[2018-06-10] MEDS: PANTOPRAZOLE 40 MG TABLET PO SCH (09:32)
[2018-06-10] MEDS: ROSUVASTATIN 20 MG TABLET PO SCH (09:32)
[2018-06-10] MEDS: METOPROLOL SUCCINATE XL 25 MG TABLET PO SCH (09:32)
[2018-06-10] MEDS: LEVOTHYROXINE 137 MCG TABLET PO SCH (09:32)
[2018-06-10 12:21] VITALS: BP 122/69
[2018-06-10] MEDS ORDERED: cephALEXin 500 MG CAPSULE PO SCH (21:00)
== END 2018-06-10 13:45 | disposition home or self-care (01) | DRG 243 ==
LOC: N.ED 18:32 → N.EDINP 18:32 → N.TELES 23:13
PROVIDERS: ADMIT Internal Medicine Cardiovascular Disease; ATTEND Internal Medicine Cardiovascular Disease

== ENCOUNTER 2018-09-24 16:09 | Inpatient (IN) ==
[2018-09-24] MEDS ORDERED: LACTULOSE 20 GM/30 ML UDCUP PO PRN (16:23)
[2018-09-24] MEDS ORDERED: MAGNESIUM SULF RIDER 4 GM in PREMIX 1 EACH IV PRN (16:23)
[2018-09-24] MEDS ORDERED: guaiFENesin/DM ER 600-30 MG TABLET PO PRN (16:23)
[2018-09-24] MEDS ORDERED: POTASSIUM CHLORIDE 20 MEQ TABLET PO PRN (16:23)
[2018-09-24] MEDS ORDERED: MAGNESIUM SULF RIDER 2 GM in PREMIX 1 EACH IV PRN (16:23)
[2018-09-24] MEDS ORDERED: BISACODYL 5 MG TABLET PO PRN (16:23)
[2018-09-24] MEDS ORDERED: diphenhydrAMINE CAP 25 MG CAPSULE PO PRN (16:23)
[2018-09-24] MEDS ORDERED: ONDANSETRON 4 MG/2 ML VIAL IV PRN (16:23)
[2018-09-24] MEDS ORDERED: ZALEPLON 5 MG CAPSULE PO PRN (16:23)
[2018-09-24] MEDS ORDERED: MORPHINE 4 MG/1 ML VIAL IV PRN (16:23)
[2018-09-24] MEDS ORDERED: DOBUTamine 500 MG/250 ML PREMIX IV PRN (16:27)
[2018-09-24] MEDS ORDERED: FUROSEMIDE 40 MG/4 ML VIAL IV SCH (16:30)
[2018-09-24] MEDS ORDERED: FUROSEMIDE 40 MG/4 ML VIAL IV ONE (16:38)
[2018-09-24 18:24] LABS: Basophils # 0.1 10*3/uL (0.0-0.2); Basophils % 0.5 % (0.0-0.8); Immature Granulocytes % 0.4 %; Immature Granulocytes Absolute 0.05 #; NRBC # 0.03 10*3/uL; Red Cell Distribution Width 18.2 % (9.3-17.3)
[2018-09-24 18:43] LABS: Albumin 2.9 G/DL (3.4-5.0); Bilirubin,Total 0.5 MG/DL (0.2-1.0); Osmolality,Calculated 299.1 MOS/KG (273-304); Total Protein 7.8 G/DL (6.4-8.3); Troponin I < 0.015 NG/ML (0.00-0.045)
[2018-09-24 18:44] LABS: Eosinophils # 0.1 10*3/uL (0.0-0.87); Eosinophils % 0.8 % (0.00-10.9); Hematocrit 38.5 VOL% (35.7-47.0); Hemoglobin 11.5 GM/DL (12.0-16.0); Lymphocytes # 2.8 10*3/uL (1.4-4.0); Lymphocytes % 24.4 % (21.3-54.2); Mean Corpuscular HGB Conc 29.9 GM/DL (32-36); Mean Corpuscular Volume 88.7 FL (87-102); Mean Platelet Volume 9.9 FL (9.6-12.0); Monocytes % 10.3 % (1.7-12.7); Neutrophils % 63.6 % (38.7-73.9); Platelet Count 371 T/CUMM (130-400); Red Blood Count 4.34 MC/CUMM (3.8-5.5); White Blood Count 11.5 T/CUMM (4-12)
[2018-09-24] MEDS ORDERED: POTASSIUM CHLORIDE 20 MEQ TABLET PO ONE (20:33)
[2018-09-24 20:40] LABS: Troponin I < 0.015 NG/ML (0.00-0.045)
[2018-09-24] MEDS: ENOXAPARIN 30 MG/0.3 ML SYRINGE SUBCUT SCH (21:13)
[2018-09-24 23:03] LABS: Troponin I < 0.015 NG/ML (0.00-0.045)
[2018-09-25 05:52] LABS: Basophils # 0.1 10*3/uL (0.0-0.2); Basophils % 0.7 % (0.0-0.8); Eosinophils # 0.2 10*3/uL (0.0-0.87); Eosinophils % 1.5 % (0.00-10.9); Hematocrit 34.7 VOL% (35.7-47.0); Hemoglobin 10.4 GM/DL (12.0-16.0); Immature Granulocytes % 0.7 %; Immature Granulocytes Absolute 0.07 #; Lymphocytes # 2.4 10*3/uL (1.4-4.0); Lymphocytes % 22.8 % (21.3-54.2); Mean Corpuscular Volume 87.6 FL (87-102); Monocytes % 13.5 % (1.7-12.7); NRBC # 0.02 10*3/uL; Neutrophils % 60.8 % (38.7-73.9); Platelet Count 366 T/CUMM (130-400); Red Blood Count 3.96 MC/CUMM (3.8-5.5); White Blood Count 10.6 T/CUMM (4-12)
[2018-09-25 06:35] LABS: Calcium 8.8 MG/DL (8.5-10.1); Osmolality,Calculated 297.8 MOS/KG (273-304); Risk Ratio 2.41; Thyroid Stimulating Hormone 5.36 uIU/ml (0.358-3.74); VLDL CHOLESTEROL 24.8 MG/DL
[2018-09-25] MEDS: FUROSEMIDE 40 MG/4 ML VIAL IV SCH ×2 (08:53→16:32)
[2018-09-25] MEDS: POTASSIUM CHLORIDE 20 MEQ TABLET PO SCH ×2 (08:53→20:30)
[2018-09-25] MEDS: PANTOPRAZOLE 40 MG TABLET PO SCH (08:53)
[2018-09-25] MEDS: ASPIRIN EC 81 MG TABLET PO SCH (14:54)
[2018-09-25] MEDS: ASCORBIC ACID 500 MG TABLET PO SCH (14:54)
[2018-09-25] MEDS: AMIODARONE 200 MG TABLET PO SCH (14:54)
[2018-09-25] MEDS: INSULIN LISPRO 100 UNIT/ML SUBCUT SCH ×3 (16:45→20:29)
[2018-09-25 18:01] LABS: PT Patient Result 32.1 SECS
[2018-09-25] MEDS: ENOXAPARIN 30 MG/0.3 ML SYRINGE SUBCUT SCH (20:33)
[2018-09-25] MEDS: ACETAMINOPHEN 325 MG TABLET PO PRN (23:34)
[2018-09-26 05:06] LABS: Basophils # 0.1 10*3/uL (0.0-0.2); Basophils % 0.5 % (0.0-0.8); Eosinophils # 0.3 10*3/uL (0.0-0.87); Eosinophils % 2.4 % (0.00-10.9); Hematocrit 33.2 VOL% (35.7-47.0); Hemoglobin 10.2 GM/DL (12.0-16.0); Immature Granulocytes % 0.4 %; Immature Granulocytes Absolute 0.04 #; Lymphocytes # 2.8 10*3/uL (1.4-4.0); Lymphocytes % 25.1 % (21.3-54.2); Mean Corpuscular HGB Conc 30.7 GM/DL (32-36); Mean Corpuscular Volume 86.5 FL (87-102); Mean Platelet Volume 10.3 FL (9.6-12.0); Monocytes % 11.9 % (1.7-12.7); NRBC # 0.03 10*3/uL; Neutrophils % 59.7 % (38.7-73.9); Platelet Count 362 T/CUMM (130-400); Red Blood Count 3.84 MC/CUMM (3.8-5.5); Red Cell Distribution Width 17.8 % (9.3-17.3)
[2018-09-26 05:10] LABS: INR 2.7
[2018-09-26 05:13] LABS: PT Patient Result 29.2 SECS
[2018-09-26 05:14] LABS: Osmolality,Calculated 295.5 MOS/KG (273-304)
[2018-09-26] MEDS: LEVOTHYROXINE 137 MCG TABLET PO SCH (07:04)
[2018-09-26] MEDS ORDERED: ROSUVASTATIN 20 MG TABLET PO SCH (09:00)
[2018-09-26] MEDS ORDERED: NF- (Liraglutide [Victoza 3-Pak] 1.8 MG) SUBCUT SCH (09:00)
[2018-09-26] MEDS: GLIMEPIRIDE 4 MG TABLET PO SCH ×2 (09:35→12:26)
[2018-09-26] MEDS: AMIODARONE 200 MG TABLET PO SCH (09:35)
[2018-09-26] MEDS: ASPIRIN EC 81 MG TABLET PO SCH (09:35)
[2018-09-26] MEDS: POTASSIUM CHLORIDE 20 MEQ TABLET PO SCH ×3 (09:36→21:01)
[2018-09-26] MEDS: ASCORBIC ACID 500 MG TABLET PO SCH (09:36)
[2018-09-26] MEDS: INSULIN LISPRO 100 UNIT/ML SUBCUT SCH ×4 (09:36→17:07)
[2018-09-26] MEDS: PANTOPRAZOLE 40 MG TABLET PO SCH (09:37)
[2018-09-26] MEDS: FUROSEMIDE 40 MG/4 ML VIAL IV SCH ×2 (09:39→17:07)
[2018-09-26] MEDS ORDERED: WARFARIN 5 MG TABLET PO SCH (18:00)
[2018-09-26] MEDS: ENOXAPARIN 30 MG/0.3 ML SYRINGE SUBCUT SCH (20:59)
[2018-09-26] MEDS: ACETAMINOPHEN 325 MG TABLET PO PRN (21:00)
[2018-09-27] MEDS: ACETAMINOPHEN 325 MG TABLET PO PRN (01:42)
[2018-09-27 05:13] LABS: Basophils # 0.1 10*3/uL (0.0-0.2); Basophils % 0.9 % (0.0-0.8); Eosinophils # 0.3 10*3/uL (0.0-0.87); Eosinophils % 2.6 % (0.00-10.9); Hematocrit 34.6 VOL% (35.7-47.0); Hemoglobin 10.6 GM/DL (12.0-16.0); Immature Granulocytes % 0.4 %; Immature Granulocytes Absolute 0.04 #; Lymphocytes # 2.6 10*3/uL (1.4-4.0); Lymphocytes % 25.4 % (21.3-54.2); Mean Corpuscular HGB Conc 30.6 GM/DL (32-36); Mean Corpuscular Volume 85.9 FL (87-102); Mean Platelet Volume 9.8 FL (9.6-12.0); Monocytes % 11.6 % (1.7-12.7); NRBC # 0.03 10*3/uL; Neutrophils % 59.1 % (38.7-73.9); Platelet Count 333 T/CUMM (130-400); Red Blood Count 4.03 MC/CUMM (3.8-5.5); Red Cell Distribution Width 17.9 % (9.3-17.3); White Blood Count 10.2 T/CUMM (4-12)
[2018-09-27 05:48] LABS: Calcium 8.7 MG/DL (8.5-10.1); Osmolality,Calculated 290.8 MOS/KG (273-304)
[2018-09-27] MEDS: INSULIN LISPRO 100 UNIT/ML SUBCUT SCH ×2 (06:49)
[2018-09-27] MEDS: LEVOTHYROXINE 137 MCG TABLET PO SCH (06:51)
[2018-09-27 08:00] VITALS: BP 108/79
[2018-09-27] MEDS ORDERED: EPINEPHrine 1 MG/10 ML SYRINGE ONE (10:04)
[2018-09-27] MEDS ORDERED: EPINEPHrine 1 MG/ML VIAL ONE (10:05)
[2018-09-30] MEDS ORDERED: WARFARIN 2.5 MG TABLET PO SCH (09:00)
== END 2018-09-27 10:07 | disposition expired | DRG 291 ==
LOC: N.TELEN 17:08
PROVIDERS: ADMIT Internal Medicine Cardiovascular Disease; ATTEND Internal Medicine Cardiovascular Disease